=== PATIENT | female | born 1970 | race Caucasian/White ===

== ENCOUNTER → 2019-01-11 14:17 | Outpatient (CLI) | payer OTHER, SELFPAY ==
--- NOTE | 2019-01-11 14:20 | DI.RAD.S_ITS ---
PROCEDURE: XR SHOULDER LT MIN 2V INDICATIONS: L shoulder pain TECHNIQUE: 3 views of the shoulder were acquired. COMPARISON: None. FINDINGS: Bones: No fractures or dislocations. No suspicious bony lesions. Visualized ribs appear intact. Mild degenerative subchondral sclerosis and spurring Soft tissues: No suspicious soft tissue calcifications. IMPRESSION: Mild degenerative changes. Dictated by: Christiano Cagle M.D. on 01/11/2019 at 15:19 Approved by: Christiano Cagle M.D. on 01/11/2019 at 15:20
[2019-01-11 15:07] LABS: Add Manual Diff / Slide Review NO; Basophils Absolute Auto 0 /uL (0-100); Basophils Percent Auto 0.4 % (0-2); Eosinophils Absolute Auto 100 /uL (0-450); Eosinophils Percent Auto 2.1 % (2-4); Hematocrit 39.2 % (36-46); Hemoglobin 13.5 g/dL (12.0-16.0); Lymphocytes Absolute Auto 2000 /uL (1100-4500); Lymphocytes Percent Auto 29.7 % (25-40); Mean Corpuscular HGB Conc 34.5 % (30-36); Mean Corpuscular Hemoglobin 31.4 PG (26-34); Mean Corpuscular Volume 90.9 fL (80-100); Monocytes Absolute Auto 400 /uL (0-900); Monocytes Percent Auto 6.4 % (3-14); Neutrophils Absolute Auto 4200 /uL (1500-7000); Neutrophils Percent Auto 61.4 % (50-75); Platelet Count 335 X10^3/uL (150-400); Red Blood Cell Count 4.32 X10^6/uL (4.0-5.2); Red Cell Distribution Width 12.8 % (11.6-14.8); White Blood Cell Count 6.8 X10^3/uL (4.5-11.0)
[2019-01-11 15:29] LABS: Appearance Urine UA CLEAR; Bilirubin Urine UA NEGATIVE (NEGATIVE); Color Urine UA YELLOW; Glucose Urine UA NEGATIVE (Negative); Ketones Urine UA NEGATIVE (NEGATIVE); Leukocyte Esterase Urine UA NEGATIVE (NEGATIVE); Nitrite Urine UA NEGATIVE (Negative); Occult Blood Urine UA NEGATIVE (Negative); Protein Urine UA NEGATIVE (Negative); Specific Gravity Urine UA 1.025 (1.000-1.035)
[2019-01-11 16:30] LABS: Alanine Aminotransferase 28 IU/L (9-52); Albumin 4.1 g/dL (3.5-5.0); Albumin Globulin Ratio 1.6 (1.0-2.8); Alkaline Phosphatase 59 U/L (38-126); Aspartate Aminotransferase 21 IU/L (14-36); BUN Creatinine Ratio 17.1 (6-22); Bilirubin Total 0.4 mg/dL (0.2-1.3); Blood Urea Nitrogen 12 mg/dL (7-17); Calcium 8.6 mg/dL (8.4-10.2); Carbon Dioxide 26 mmol/L (22-32); Chloride 102 mmol/L (98-107); Cholesterol 160 mg/dL (140-199); Estimated Glomerular Filt Rate > 60.0 mL/min (>60); Globulin 2.5 g/dL (1.7-4.1); Glucose 99 mg/dL (70-100); HDL Cholesterol 32 mg/dL (40-60); HEMOLYSIS < 15 (0-50); LDL Cholesterol Calculated 93 mg/dL (<100); Sodium 138 mmol/L (137-145); Total Protein 6.6 g/dL (6.3-8.2); Triglycerides 173 mg/dL (35-150)
== END ==
PROVIDERS: Visit Provider Family Medicine
DX: M25.512 Pain in left shoulder (principal); Z00.00 Encounter for general adult medical examination without abnormal findings; Z13.220 Encounter for screening for lipoid disorders; Z13.29 Encounter for screening for other suspected endocrine disorder; Z51.81 Encounter for therapeutic drug level monitoring
CPT/HCPCS: 36415; 73030; 80053; 80061; 81003; 84443; 85025

== ENCOUNTER 2019-02-19 09:09 | Outpatient (RCR) | payer OTHER, SELFPAY ==
--- NOTE | 2019-02-19 16:00 | PT.OIE ---
Current Diagnoses Pain in left shoulder (02/19/19) Impingement syndrome of left shoulder (02/19/19) Past Medical History (Last Reviewed 02/12/19 @ 16:07 by Rama Washburn DO) Hypertension (Acute) Provider Visit Care Team Role Provider Type Rama Washburn DO Attending Provider Physician Primary Care Provider Specialty: Family Practice Address: [address] [place] [address], [facility] Email: [email or web address] Physical Therapy Initial Evaluation PT-OP-A Visit Information Start: 02/19/19 07:07 Freq: Status: Active Protocol: Document 02/19/19 09:30 AMB (Rec: 02/20/19 07:11 AMB [email or web address]) Out-Patient Physical Therapy Visit Information Visit Information Visit Type Initial Evaluation Visit Start Time 09:30 Visit Stop Time 10:15 Total Visit Minutes 45 Visit Number 1 PT-OP-B Current Condition Start: 02/19/19 07:07 Freq: Status: Active Protocol: Document 02/19/19 09:30 AMB (Rec: 02/20/19 07:11 AMB [email or web address]) Current Condition History of Current Condition Onset Date 2015 Current Complaints L shoulder pain History of Current Condition Nadeen reports insidious onset shoulder pain that began 3 years ago. She has had previous cortisone injections which help for awhile but then wear off. She has had previous PT for about a month 3 years ago that was a little helpful, but the pain keeps coming back. Prior Treatments and Tests Pt reports previous MRI in [place] showed swelling Treatment Goals Patient/Caregiver Goals Reduce pain, be able to lift arm, improve sleep Current Functional Impairments (Reported) Functional Limitations- ADL's dressing-donning/doffing bra, sleeping Functional Limitations- Other lifting arm above shoulder height, especially into abduction Personal Factors Other Personal Factors That May Effect hypertension Therapy/Recovery PT-OP-C Subjective Start: 02/19/19 07:07 Freq: Status: Active Protocol: Document 02/19/19 09:30 AMB (Rec: 02/20/19 07:11 AMB [email or web address]) Patient Questionnaires Quick Dash- Upper Extremity Quick Dash UE Score 56 Quick Dash UE Impairment 40 to 59% Impaired (Score 40- 59) OP-PT Pain Assessment Location Left Shoulder Pain Location Details lateral/anterior shoulder Intensity 7 Scale Used Numeric (1 - 10) PT-OP-J Posture/Palpation/Skin Start: 02/19/19 07:07 Freq: Status: Active Protocol: Document 02/19/19 09:30 AMB (Rec: 02/20/19 07:25 AMB [email or web address]) Posture Evaluation Comments Posture Comments Forward shoulders, forward head, BMI 42.9, no winging scapulae Palpation Assessment Location One Palpation Location L shoulder Palpation Findings Tenderness Palpation Details Proximal Biceps tendons, supraspinatus insertion, no tenderness noted over scapulae , tightness in upper trap. PT-OP-K Range of Motion Start: 02/19/19 07:07 Freq: Status: Active Protocol: Document 02/19/19 09:30 AMB (Rec: 02/20/19 07:25 AMB [email or web address]) Shoulder Goniometric Range of Motion Shoulder Measured in Degrees Right Active Testing Position Sitting Flexion 150 Abduction 150 Left Active Testing Position Sitting Flexion 120 Abduction 90 PT-OP-M Strength Start: 02/19/19 07:07 Freq: Status: Active Protocol: Document 02/19/19 09:30 AMB (Rec: 02/20/19 07:25 AMB [email or web address]) Shoulder Strength Shoulder Manual Muscle Testing Right Flexion 5 Normal Extension 5 Normal Abduction (C5) 5 Normal External Rotation 5 Normal Internal Rotation 5 Normal Left Flexion 4+ Good+ Extension 5 Normal Abduction (C5) 4 Good External Rotation 4 Good Internal Rotation 4+ Good+ PT-OP-Q Treatments Start: 02/19/19 07:07 Freq: Status: Active Protocol: Document 02/19/19 09:30 AMB (Rec: 02/20/19 07:30 AMB [email or web address]) Therapeutic Exercises Standing Exercises 1 Standing Exercise Name isometrics Reps/Minutes 5x10 Comments flexion, extension, ER Manual Therapy Treatment Taping 1 Body Location L shoulder Type of Tape Kinesio Tape Comments I for scapular retract, Y for GH support PT-OP-T Assessment and Plan Start: 02/19/19 07:07 Freq: Status: Active Protocol: Document 02/19/19 09:30 AMB (Rec: 02/20/19 08:40 AMB [email or web address]) Physical Therapy Assessment Rehab Potential Rehabilitation Potential Good Evaluation Complexity Number of Personal Factors/Comorbidities 0 Number of Body Systems Impaired 4 or More Clinical Presentation at Evaluation Stable Impairments Impairments Functional Activities Pain Posture ROM Strength Goals Two Impairment Strength Short Term Goal (STG) Nadeen will improve her strength to 4+/5 in all planes . STG Duration 4 weeks Senior Living Goal (LTG) Nadeen will improve her strength so that she can lift 20 pounds from the floor to waist height without increasing her shoulder pain. LTG Duration 8 weeks One Impairment ROM Short Term Goal (STG) Nadeen will increase her shoulder abduction AROM to 120 . STG Duration 4 weeks Senior Living Goal (LTG) Nadeen will improve her ROM so that she can don her bra without an increase of shoulder pain. LTG Duration 8 weeks Assessment Summary Assessment Nadeen attends PT with chronic shoulder pain, shoulder abduction and external rotation weakness, and poor posture. Per pt's report MRI from 3 years ago was negative for tear, but she likely has tendinosis and impingement. She will benefit from physical therapy to improve the stability of the GH joint, improve scapular mechanics, and then strengthen rotator cuff to reduce her pain with moving her arm and sleeping. Physical Therapy Plan Frequency and Duration Frequency of Treatment 2x/Week Duration of Treatment 8 weeks Plan of Care Start Date 02/19/19 Plan of Care End Date 04/16/19 Therapeutic Interventions Therapeutic Interventions Home Exercise Program Joint Mobilizations Manual Therapy Neuromuscular Re-education Self-Care/Home Management Therapeutic Activities Therapeutic Exercises Modalities Cold Pack/Ice Massage Electric Stimulation Hot Packs Ultrasound Next Visit Focus/Plan Next Note Type Treatment Note Next Visit Plan Progress isometrics, strengthen rotator cuff, scapular stabilizers as tolerated
--- NOTE | 2019-02-20 08:42 | PT.OPPOC ---
Current Diagnoses Pain in left shoulder (02/19/19) Impingement syndrome of left shoulder (02/19/19) Provider Visit Care Team Role Provider Type Rama Washburn DO Attending Provider Physician Primary Care Provider Specialty: Family Practice Address: [address] [place] [address], [id number] Email: [email or web address] Plan Of Care PT-OP-T Assessment and Plan Start: 02/19/19 07:07 Freq: Status: Active Protocol: Document 02/19/19 09:30 AMB (Rec: 02/20/19 08:40 AMB [email or web address]) Physical Therapy Assessment Rehab Potential Rehabilitation Potential Good Evaluation Complexity Number of Personal Factors/Comorbidities 0 Number of Body Systems Impaired 4 or More Clinical Presentation at Evaluation Stable Impairments Impairments Functional Activities Pain Posture ROM Strength Goals Two Impairment Strength Short Term Goal (STG) Nadeen will improve her strength to 4+/5 in all planes . STG Duration 4 weeks [facility] Goal (LTG) Nadeen will improve her strength so that she can lift 20 pounds from the floor to waist height without increasing her shoulder pain. LTG Duration 8 weeks One Impairment ROM Short Term Goal (STG) Nadeen will increase her shoulder abduction AROM to 120 . STG Duration 4 weeks [facility] Goal (LTG) Nadeen will improve her ROM so that she can don her bra without an increase of shoulder pain. LTG Duration 8 weeks Assessment Summary Assessment Nadeen attends PT with chronic shoulder pain, shoulder abduction and external rotation weakness, and poor posture. Per pt's report MRI from 3 years ago was negative for tear, but she likely has tendinosis and impingement. She will benefit from physical therapy to improve the stability of the GH joint, improve scapular mechanics, and then strengthen rotator cuff to reduce her pain with moving her arm and sleeping. Physical Therapy Plan Frequency and Duration Frequency of Treatment 2x/Week Duration of Treatment 8 weeks Plan of Care Start Date 02/19/19 Plan of Care End Date 04/16/19 Therapeutic Interventions Therapeutic Interventions Home Exercise Program Joint Mobilizations Manual Therapy Neuromuscular Re-education Self-Care/Home Management Therapeutic Activities Therapeutic Exercises Modalities Cold Pack/Ice Massage Electric Stimulation Hot Packs Ultrasound Next Visit Focus/Plan Next Note Type Treatment Note Next Visit Plan Progress isometrics, strengthen rotator cuff, scapular stabilizers as tolerated Plan of Care Dates Plan of Care Start Date 02/19/19 Plan of Care End Date 04/16/19 Please Sign and Return: I have reviewed this Plan of Care and certify that the skilled therapy services above are required to meet the patient?s needs. Physician Signature Date Printed Name and Credentials Clinical Instructor Signature Printed Name and Credentials
--- NOTE | 2019-05-13 07:58 | PT.OPDS ---
Current Diagnoses Pain in left shoulder (02/19/19) Impingement syndrome of left shoulder (02/19/19) Provider Visit Care Team Role Provider Type Rama Washburn DO Attending Provider Physician Primary Care Provider Specialty: Family Practice Address: [address] [place] [address], [address], [facility] Email: [email or web address] Visit Number Visit Number 1 Discharge Summary PT-OP-B Current Condition Start: 02/19/19 07:07 Freq: Status: Active Protocol: Document 02/19/19 09:30 AMB (Rec: 02/20/19 07:11 AMB [email or web address]) Current Condition History of Current Condition Onset Date 2015 Current Complaints L shoulder pain History of Current Condition Nadeen reports insidious onset shoulder pain that began 3 years ago. She has had previous cortisone injections which help for awhile but then wear off. She has had previous PT for about a month 3 years ago that was a little helpful, but the pain keeps coming back. Prior Treatments and Tests Pt reports previous MRI in [place] showed swelling Treatment Goals Patient/Caregiver Goals Reduce pain, be able to lift arm, improve sleep Current Functional Impairments (Reported) Functional Limitations- ADL's dressing-donning/doffing bra, sleeping Functional Limitations- Other lifting arm above shoulder height, especially into abduction Personal Factors Other Personal Factors That May Effect hypertension Therapy/Recovery PT-OP-C Subjective Start: 02/19/19 07:07 Freq: Status: Active Protocol: Document 02/19/19 09:30 AMB (Rec: 02/20/19 07:11 AMB [email or web address]) Patient Questionnaires Quick Dash- Upper Extremity Quick Dash UE Score 56 Quick Dash UE Impairment 40 to 59% Impaired (Score 40- 59) OP-PT Pain Assessment Location Left Shoulder Pain Location Details lateral/anterior shoulder Intensity 7 Scale Used Numeric (1 - 10) PT-OP-J Posture/Palpation/Skin Start: 02/19/19 07:07 Freq: Status: Active Protocol: Document 02/19/19 09:30 AMB (Rec: 02/20/19 07:25 AMB [email or web address]) Posture Evaluation Comments Posture Comments Forward shoulders, forward head, BMI 42.9, no winging scapulae Palpation Assessment Location One Palpation Location L shoulder Palpation Findings Tenderness Palpation Details Proximal Biceps tendons, supraspinatus insertion, no tenderness noted over scapulae , tightness in upper trap. PT-OP-K Range of Motion Start: 02/19/19 07:07 Freq: Status: Active Protocol: Document 02/19/19 09:30 AMB (Rec: 02/20/19 07:25 AMB [email or web address]) Shoulder Goniometric Range of Motion Shoulder Right Active Testing Position Sitting Flexion 150 Abduction 150 Left Active Testing Position Sitting Flexion 120 Abduction 90 PT-OP-M Strength Start: 02/19/19 07:07 Freq: Status: Active Protocol: Document 02/19/19 09:30 AMB (Rec: 02/20/19 07:25 AMB [email or web address]) Shoulder Strength Shoulder Manual Muscle Testing Right Flexion 5 Normal Extension 5 Normal Abduction (C5) 5 Normal External Rotation 5 Normal Internal Rotation 5 Normal Left Flexion 4+ Good+ Extension 5 Normal Abduction (C5) 4 Good External Rotation 4 Good Internal Rotation 4+ Good+ PT-OP-T Assessment and Plan Start: 02/19/19 07:07 Freq: Status: Active Protocol: Document 05/13/19 07:57 AMB (Rec: 05/13/19 07:58 AMB [email or web address]) Physical Therapy Assessment Assessment Summary Assessment Nadeen canceled her appointments after initial evaluation and has not followed up, that was almost 3 months ago, therefore she is discharged at this time. See evaluation for all clinical information.
== END 2019-05-17 10:09 | disposition home or self-care (01) ==
LOC: PHYS 09:09
PROVIDERS: PCP Family Medicine; Visit Provider Family Medicine
DX: M25.512 Pain in left shoulder (principal); M75.42 Impingement syndrome of left shoulder
CPT/HCPCS: 97110; 97161

== ENCOUNTER → 2019-05-09 14:54 | Outpatient (CLI) | payer OTHER, SELFPAY ==
--- NOTE | 2019-05-09 14:56 | DI.MG.S_ITS ---
BILATERAL DIGITAL SCREENING MAMMOGRAM 3D/2D WITH CAD: 05/09/2019 CLINICAL: Routine screening. Family history of breast cancer. Comparison is made to exams dated: 01/18/2017 mammogram and 06/14/2012 mammogram - [facility] [place]. There are scattered fibroglandular elements in both breasts. Current study was also evaluated with a Computer Aided Detection (CAD) system. No significant masses, calcifications, or other findings are seen in either breast. There has been no significant interval change. IMPRESSION: NEGATIVE There is no mammographic evidence of malignancy. A 1 year screening mammogram is recommended. This exam was interpreted at Station ID: [id number]. NOTE: For mammograms, a report in lay terms will be sent to the patient. Approximately 15% of breast malignancies will not be visualized mammographically. In the management of a palpable breast mass, a negative mammogram must not discourage biopsy of a clinically suspicious lesion. Electronically Signed By: Ham merritt/benedicto:05/09/2019 17:16:52 letter sent: Normal Exam ACR BI-RADS Category 1: Negative [id number]
== END ==
PROVIDERS: PCP Family Medicine; Visit Provider Family Medicine
DX: Z12.31 Encounter for screening mammogram for malignant neoplasm of breast (principal); Z80.3 Family history of malignant neoplasm of breast
CPT/HCPCS: 77063; 77067

== ENCOUNTER → 2019-06-11 09:41 | Outpatient (CLI) | payer OTHER, SELFPAY ==
[2019-06-11 11:33] LABS: BUN Creatinine Ratio 17.5 (6-22); Blood Urea Nitrogen 14 mg/dL (7-17); Carbon Dioxide 27 mmol/L (22-32); Chloride 102 mmol/L (98-107); Estimated Glomerular Filt Rate > 60.0 mL/min (>60); Glucose 96 mg/dL (70-100); HEMOLYSIS < 15 (0-50); Sodium 138 mmol/L (137-145)
[2019-06-11 12:00] LABS: RBC Urine None Seen (0-5/HPF)
[2019-06-11 12:15] LABS: Appearance Urine UA TURBID; Bilirubin Urine UA NEGATIVE (NEGATIVE); Color Urine UA YELLOW; Glucose Urine UA NEGATIVE (Negative); Ketones Urine UA NEGATIVE (NEGATIVE); Leukocyte Esterase Urine UA 1+ (NEGATIVE); Nitrite Urine UA NEGATIVE (Negative); Occult Blood Urine UA NEGATIVE (Negative); Protein Urine UA NEGATIVE (Negative); Urobilinogen Urine UA 0.2 E.U./dL (0.2)
[2019-06-11 12:32] LABS: Squamous Epithelial Cell Urine 5-10 /HPF (0-5/HPF); WBC Urine 5-10/HPF (0-5/HPF); pH Urine UA 6.5 (4.5-8.0)
[2019-06-11 12:33] LABS: Amorphous Sediment Urine 3+; Bacteria Urine Few (2-10); Culture Indicated Urine Specimen Cultured; Mucus Urine 3+ (Negative)
== END ==
PROVIDERS: PCP Family Medicine; Visit Provider Hospitalist
DX: R10.9 Unspecified abdominal pain (principal); M54.9 Dorsalgia, unspecified
CPT/HCPCS: 36415; 80048; 81001; 87086

== ENCOUNTER → 2019-06-28 13:01 | Outpatient (CLI) | payer OTHER, SELFPAY ==
--- NOTE | 2019-06-28 13:06 | DI.CT.S_ITS ---
PROCEDURE: CT ABDOMEN PELVIS WO CON INDICATIONS: L sided Flank pain with blood in urine. Clinical concern for kidney stone TECHNIQUE: Noncontrast 5 mm thick sections acquired from the diaphragms to the symphysis. 5 mm thick coronal and sagittal reformats were then performed. For radiation dose reduction, the following was used: automated exposure control, adjustment of mA and/or kV according to patient size. COMPARISON: None. FINDINGS: Image quality: Excellent. Lung bases: Lung bases are clear. Heart size is normal. Urinary system: Both kidneys are normal in size. No kidney stones. No hydronephrosis or perinephric fat stranding. Both ureters appear non-dilated throughout their expected courses. Bladder wall thickness is normal; no calcified bladder stones. Other solid organs: Liver is normal in size. Gallbladder demonstrates potential layering sludge. Pancreas is normal in contours. Spleen is normal in size. Incidental note is made of an accessory spleen along the hilum of the primary spleen. No adrenal nodules. Peritoneum and bowel: Unenhanced bowel loops demonstrate normal wall thickness and caliber. No free fluid or air. Nodes and vessels: No retroperitoneal or mesenteric adenopathy by size criteria. Aorta and inferior vena cava are normal in caliber. Incidental note is made of a normal-appearing appendix. Abdominal wall: No ventral hernias. Pelvis: No free pelvic fluid. No inguinal hernias or adenopathy. Bones: No suspicious bony lesions. No vertebral body compression fractures. IMPRESSION: No stones or hydronephrosis can be seen. Dictated by: Ryan Leone M.D. on 06/28/2019 at 12:46 Approved by: Ryan Leone M.D. on 06/28/2019 at 12:48
== END ==
PROVIDERS: PCP Family Medicine; Visit Provider Physician Assistant
DX: R10.9 Unspecified abdominal pain (principal); R31.9 Hematuria, unspecified
CPT/HCPCS: 74176

== ENCOUNTER → 2019-06-29 07:53 | Outpatient (CLI) | payer OTHER, SELFPAY | LOC: LAB 07:53 | PROVIDERS: PCP Family Medicine; Visit Provider Physician Assistant | DX: R10.9 Unspecified abdominal pain (principal); R31.9 Hematuria, unspecified | CPT/HCPCS: 87086 ==

== ENCOUNTER → 2019-08-29 06:58 | Outpatient (CLI) | payer OTHER, SELFPAY ==
--- NOTE | 2019-08-29 07:03 | DI.US.S_ITS ---
PROCEDURE: US ABDOMEN COMPLETE INDICATIONS: POST PRANDIAL EPIGASTRIC PAIN TECHNIQUE: Real-time scanning was performed of the abdominal and retroperitoneal organs, with image documentation. COMPARISON: , CT, CT ABDOMEN PELVIS WO CON, 06/28/2019, 13:19. FINDINGS: Liver: Liver is normal in size and homogeneous in echotexture. Gallbladder: No gallstones identified. Normal gallbladder wall. No pericholecystic fluid. Negative sonographic Martin sign. Biliary ducts: Intrahepatic bile ducts are non-dilated. Extrahepatic bile duct caliber measures 5.3 mm. Normal is 6-7 mm or less in diameter, or 10 mm or less post-cholecystectomy. Pancreas: Visualized portions of the pancreas are sonographically normal. Spleen: Spleen is normal in size and homogeneous in echotexture. Kidneys: Kidneys are normal in size and echotexture. Right kidney measures 12.1 cm long; left kidney measures 11.6 cm long. No hydronephrosis or nephrolithiasis. No solid masses. Aorta: Visualized aorta is normal in caliber at less than 3 cm. Iliacs: Proximal common iliac arteries are normal in caliber at less than 2.5 cm. IVC: Intrahepatic inferior vena cava is patent. Miscellaneous: No free abdominal fluid. IMPRESSION: No source for postprandial pain identified. Dictated by: Hernán DRAPER Interpreted: Adrianne Jack MD on 08/29/2019 at 8:50 Approved by: Adrianne Jack M.D. on 08/30/2019 at 7:06
== END ==
PROVIDERS: PCP Family Medicine; Visit Provider Specialist
DX: R10.13 Epigastric pain (principal)
CPT/HCPCS: 76700

== ENCOUNTER → 2019-09-16 18:15 | Outpatient (CLI) | payer OTHER, SELFPAY ==
[2019-09-16 18:55] LABS: Influenza A - CEPHEID Flu A NEGATIVE (NEGATIVE); Influenza B - CEPHEID Flu B NEGATIVE (NEGATIVE)
== END ==
PROVIDERS: PCP Family Medicine; Visit Provider Physician Assistant
DX: R68.89 Other general symptoms and signs (principal)
CPT/HCPCS: 87502

== ENCOUNTER → 2019-09-30 08:01 | Outpatient (CLI) | payer OTHER, SELFPAY ==
--- NOTE | 2019-09-30 08:03 | DI.NM.S_ITS ---
PROCEDURE: NM HIDA WITH CCK PHARMACEUTICAL: 5.0 mCi Tc-99m mebrofenin IV; 2.1 mcg CCK IV. INDICATIONS: post parandial nausea/pain r/o dyskinesia TECHNIQUE: Following intravenous administration of Tc-99m mebrofenin, sequential anterior abdominal images were obtained. To evaluate the contractile response of the gallbladder in response to Cholecystokinin (CCK), sincalide (0.02 ?g/kg) was administered by slow intravenous infusion approximately 60 minutes after the administration of the radiopharmaceutical. Sequential imaging was continued for 30 minutes after the start of CCK infusion. Gallbladder ejection fraction was calculated. COMPARISON: [facility], CT, CT ABDOMEN PELVIS WO CON, 06/28/2019, 13:19. [facility], US, US ABDOMEN COMPLETE, 08/29/2019, 7:23. FINDINGS: Biliary scan: There is normal tracer uptake and excretion by the liver. There is normal visualization of the intrahepatic ducts, common bile duct, and gallbladder. There is normal tracer transit into the duodenum. CCK stimulation: There is abnormally reduced contractile response of the gallbladder to CCK infusion. The calculated gallbladder ejection fraction is 20%; normal values are above 35%. It has been shown that any patient abdominal pain after CCK administration is related to the rate of CCK injection, rather than to any underlying gallbladder disease (Clinical Nuclear Medicine 2012; 37: 63-70. Journal of Nuclear Medicine 2014; 55: 1-9). IMPRESSION: Patency of the cystic duct is documented, normal filling of the gallbladder lumen by isotope. However, the gallbladder ejection fraction is abnormally low at 20%. Dictated by: Ethan Doty M.D. on 09/30/2019 at 13:50 Approved by: Ethan Doty M.D. on 09/30/2019 at 13:59
== END ==
LOC: RAD 08:03
PROVIDERS: Family Provider Family Medicine; PCP Family Medicine; Visit Provider Specialist
DX: R10.13 Epigastric pain (principal); R11.0 Nausea
CPT/HCPCS: 78227; A9537; J2805

== ENCOUNTER 2019-10-14 16:18 | Emergency (ER) | payer OTHER, SELFPAY ==
[2019-10-14 16:23] VITALS: BP 130/81; PULSE 84; RESP 18; TEMP 36.4; O2SAT 100
--- NOTE | 2019-10-14 18:37 | ED.BACK ---
HPI - Back Pain/Injury General Chief Complaint: Back Pain/Injury Stated Complaint: BACK PAIN Time Seen by Provider: 10/14/19 18:37 Source: patient Mode of arrival: Ambulatory Limitations: no limitations History of Present Illness HPI Narrative: 49-year-old female with known gallbladder disease who is scheduled to have a consultation with General surgery on of this week here for evaluation of bilateral mid back pain. Patient states she has had back pain like this in the past. No new trauma. States is been worsening over the past 3 days. Has tried some nzfu-apl-bikkgbg with remedies at home without any improvement. Also tried muscle relaxers which she had at home without any improvement. She has no abdominal pain. No bowel or bladder symptoms. No lower back pain. No rash. Related Data Home Medications Medication Instructions Recorded Confirmed cholecalciferol (vitamin D3) 25 1,000 unit PO DAILY 02/12/19 09/16/19 mcg (1,000 unit) capsule multivitamin,zz-rcrj-ryscahbq 1 tab PO DAILY 02/12/19 09/16/19 vitamin B comp and C no.3 15 mg-10 1 cap PO DAILY 02/12/19 09/16/19 mg-50 mg-5 mg-300 mg capsule Previous Rx's Medication Instructions Recorded lisinopril 20 1 tab PO DAILY #90 tab 01/07/19 mg-hydrochlorothiazide 12.5 mg tablet tramadol [Ultram] 50 mg PO Q6H PRN #7 tab 10/14/19 Allergies Allergy/AdvReac Type Severity Reaction Status Date / Time No Known Drug Allergies Allergy Verified 09/16/19 18:18 Review of Systems Constitutional Constitutional: Denies fever(s) and Denies headache(s) ENT Ears, Nose, Mouth, and Throat: Denies headache(s) Cardiovascular Cardiovascular: Denies chest pain and Denies dyspnea Respiratory Respiratory: Denies dyspnea Gastrointestinal Gastrointestinal: Denies abdominal pain, Denies nausea and Denies vomiting Genitourinary Genitourinary: Denies dysuria and Denies vaginal discharge Musculoskeletal Musculoskeletal: Reports back pain, Denies myalgias, Denies arthralgias and Denies tingling Integumentary/Breasts Skin/Breast: Denies rash Neurologic Neurologic: Denies behavioral changes, Denies headache(s), Denies radicular pain, Denies tingling and Denies tremor(s) Psychiatric Psychiatric: Denies behavioral changes Hematologic/Lymphatic Hematologic/Lymphatic: Denies easy bleeding and Denies easy bruising Allergic/Immunologic Allergic/Immunologic: Denies urticaria Patient History Medical History BMI 40.0-44.9, adult (Acute) Epigastric abdominal pain (Acute 07/2019) Hypertension (Chronic) Shoulder pain (Chronic) Upper back pain on left side (Acute 05/2019) Family History Mother Liver failure Father Cancer Diabetes mellitus Hypertension Hyperlipidemia Brother Diabetes mellitus Hypertension Grandfather Diabetes mellitus Hypertension Grandmother Diabetes mellitus Hypertension Social History household members: family and children occupational status: employed Smoking Status: Never smoker alcohol intake: never substance use type: does not use Smoking Status: Never smoker Exam Initial Vital Signs Initial Vital Signs: Vital Signs Temperature 97.5 F L 10/14/19 16:23 Pulse Rate 84 10/14/19 16:23 Respiratory Rate 18 10/14/19 16:23 Blood Pressure 130/81 10/14/19 16:23 Pulse Oximetry 100 10/14/19 16:23 Const General: cooperative and comfortable Limitations: mental status not altered HENMT Head: normal to inspection and normocephalic Resp Effort & Inspection: normal respiratory effort Cardio Rate: regular rate GI Inspection: non-distended Palpation: soft Back/Spine/Pelvis Cervical Spine: No cervical spinal tenderness Thoracic/Lumbar Spine: paraspinal tenderness (Thoracic region), No thoracic spinal tenderness and No lumbar spinal tenderness Skin Lesions: no lesions Rashes: no rashes Neuro General: alert and awake Cognition: normal cognition Speech: speech normal Extrem General: normal to inspection and capillary refill normal Psych Appearance: grossly normal and well kempt Course Orders Ordered: ED Orders 10/14/19 18:30 Complete Blood Count AUTO DIFF Stat Comprehensive Metabolic Panel Stat Lipase Stat Trop I [Troponin I] Stat Discontinued Medications Ketorolac Tromethamine (Toradol) 30 mg IV NOW ONE Stop: 10/14/19 19:17 Last Admin: 10/14/19 19:24 Dose: 30 mg Documented by: ALANNA Vital Signs Vital signs: Vital Signs - 8 hr 10/14/19 16:23 10/14/19 18:46 Temperature 97.5 F L Pulse Rate 84 76 Respiratory Rate 18 17 Blood Pressure 130/81 Blood Pressure [Right Arm] 121/77 Pulse Oximetry 100 100 MDM - Back Pain/Injury Lab Data Attestation: I reviewed the patient's lab results. Result diagrams: 10/14/19 18:30 10/14/19 18:30 Labs: Lab Results 10/14/19 10/14/19 Range/Units 18:30 18:30 WBC 6.9 (4.5-11.0) X10^3/uL RBC 4.21 (4.0-5.2) X10^6/uL Hgb 13.6 (12.0-16.0) g/dL Hct 38.7 (36-46) % MCV 91.9 (80-100) fL MCH 32.2 (26-34) PG MCHC 35.1 (30-36) % RDW 12.7 (11.6-14.8) % Plt Count 325 (150-400) X10^3/uL Neut % (Auto) 60.9 (50-75) % Lymph % (Auto) 31.6 (25-40) % [place] % (Auto) 4.9 (3-14) % Eos % (Auto) 1.7 L (2-4) % Baso % (Auto) 0.9 (0-2) % Neut # (Auto) 4200 (6450-2497) /uL Lymph # (Auto) 2200 (9970-7914) /uL [place] # (Auto) 300 (0-900) /uL Eos # (Auto) 100 (0-450) /uL Baso # (Auto) 100 (0-100) /uL Sodium 138 (137-145) mmol/L Potassium 3.8 (3.4-5.1) mmol/L Chloride 103 (98-107) mmol/L Carbon Dioxide 26 (22-32) mmol/L BUN 10 (7-17) mg/dL Creatinine 0.70 (0.52-1.04) mg/dL Estimated GFR > 60.0 (>60) mL/min BUN/Creatinine Ratio 14.3 (6-22) Glucose 93 (70-100) mg/dL Calcium 8.8 (8.4-10.2) mg/dL Total Bilirubin 0.4 (0.2-1.3) mg/dL AST 27 (14-36) IU/L ALT 21 (<35) IU/L Alkaline Phosphatase 66 (38-126) U/L Troponin I < 0.012 (0.01-0.034) ng/mL Total Protein 7.5 (6.3-8.2) g/dL Albumin 4.2 (3.5-5.0) g/dL Globulin 3.3 (1.7-4.1) g/dL Albumin/Globulin Ratio 1.3 (1.0-2.8) Lipase 61 (23-300) U/L MDM Narrative Medical decision making narrative: Symptoms more consistent with musculoskeletal given her history and physical exam. I have low suspicion that this is gallbladder etiology. We did discuss symptom treatment. No indication for radiologic studies. Patient given return precautions and follow-up instructions. She expressed understanding and agreement with plan. Discharge Plan Departure Patient Disposition: Home Clinical Impression: Acute back pain Discharge Date/Time: 10/14/19 19:37 Instructions: DI for Thoracic Back Pain Activity Restrictions/Additional Instructions: Keep all of your scheduled medical appointments. Take the medications as directed. Return to the emergency department for any new or worsening symptoms Prescriptions: New tramadol [Ultram] 50 mg tablet 50 mg PO Q6H PRN (Reason: pain) Qty: 7 RF: 0 No Action lisinopril-hydrochlorothiazide 20-12.5 mg tablet 1 tab PO DAILY Qty: 90 RF: 1 Complete Multivitamin tablet 1 tab PO DAILY RF: 0 cholecalciferol (vitamin D3) 1,000 unit capsule 1,000 unit PO DAILY RF: 0 B Complex Plus Vitamin C 54-04-01-5-300 mg capsule 1 cap PO DAILY RF: 0 Referrals: Rama Washburn DO [Primary Care Provider] -
[2019-10-14 18:40] LABS: Add Manual Diff / Slide Review NO; Basophils Absolute Auto 100 /uL (0-100); Basophils Percent Auto 0.9 % (0-2); Eosinophils Absolute Auto 100 /uL (0-450); Eosinophils Percent Auto 1.7 % (2-4); Hematocrit 38.7 % (36-46); Hemoglobin 13.6 g/dL (12.0-16.0); Lymphocytes Absolute Auto 2200 /uL (1100-4500); Lymphocytes Percent Auto 31.6 % (25-40); Mean Corpuscular HGB Conc 35.1 % (30-36); Mean Corpuscular Hemoglobin 32.2 PG (26-34); Mean Corpuscular Volume 91.9 fL (80-100); Monocytes Absolute Auto 300 /uL (0-900); Monocytes Percent Auto 4.9 % (3-14); Neutrophils Absolute Auto 4200 /uL (1500-7000); Neutrophils Percent Auto 60.9 % (50-75); Platelet Count 325 X10^3/uL (150-400); Red Blood Cell Count 4.21 X10^6/uL (4.0-5.2); Red Cell Distribution Width 12.7 % (11.6-14.8); White Blood Cell Count 6.9 X10^3/uL (4.5-11.0)
[2019-10-14 18:46] VITALS: BP 121/77; PULSE 76; RESP 17; O2SAT 100
[2019-10-14 18:49] LABS: Alanine Aminotransferase 21 IU/L (<35); Albumin 4.2 g/dL (3.5-5.0); Albumin Globulin Ratio 1.3 (1.0-2.8); Alkaline Phosphatase 66 U/L (38-126); Aspartate Aminotransferase 27 IU/L (14-36); BUN Creatinine Ratio 14.3 (6-22); Bilirubin Total 0.4 mg/dL (0.2-1.3); Blood Urea Nitrogen 10 mg/dL (7-17); Calcium 8.8 mg/dL (8.4-10.2); Carbon Dioxide 26 mmol/L (22-32); Chloride 103 mmol/L (98-107); Estimated Glomerular Filt Rate > 60.0 mL/min (>60); Globulin 3.3 g/dL (1.7-4.1); Glucose 93 mg/dL (70-100); HEMOLYSIS 18 (0-50); Lipase 61 U/L (23-300); Potassium 3.8 mmol/L (3.4-5.1); Sodium 138 mmol/L (137-145); Total Protein 7.5 g/dL (6.3-8.2)
[2019-10-14 19:00] LABS: Troponin I < 0.012 ng/mL (0.01-0.034)
[2019-10-14] MEDS: KETOROLAC 60 MG/2 ML VIAL 30 MG IV (19:24)
== END 2019-10-14 19:37 | disposition home or self-care (01) ==
PROVIDERS: Emergency Medicine; Emergency Provider Emergency Medicine; Family Provider Family Medicine; PCP Family Medicine
DX: M54.6 Pain in thoracic spine (principal)
CPT/HCPCS: 36415; 80053; 83690; 84484; 85025; 96374; 99284; J1885

== ENCOUNTER 2019-11-04 10:35 | Day surgery (SDC) | payer OTHER, SELFPAY ==
[2019-10-29 10:47] VITALS: BMI 40.1
--- NOTE | 2019-11-04 | PATH_ITS ---
[facility] Accession Number: [id number] . 01 Material submitted: . gallbladder - GALLBLADDER . 02 Diagnosis: Gallbladder, Cholecystectomy: Chronic cholecystitis. No calculi identified. Negative for dysplasia and malignancy. V 11/07/2019 1032 Local . 02 Electronically signed: . Janny Fatima MD, Pathologist NPI- [id number] . 01 Gross description: . Received in formalin, labeled gallbladder, is an opened gallbladder (length-8.0 cm, diameter-2.2 cm) with marcial-purple smooth shiny serosa and a patent cystic duct. A possible lymph node (0.8 x 0.3 x 0.2 cm) is identified. The lumen contains green viscous bile. No calculi are present. The mucosa is green, smooth, and flat. The wall is up to 0.1 cm thick. No nodules, masses, or lesions are identified. Section Code: (A1) cystic duct resection margin and two serial sections from the body; (A2) two longitudinal sections from the fundus; (A3) one bisected lymph node. ([id number]) /[facility] 11/06/2019 1302 Local . 02 Pathologist provided ICD-10: K81.1 . 02 CPT . 629687 Performed at: 01 [facility] [address] [facility], [place], [place] [id number] MD Francois Berman MD Phone: [phone] Performed at: 02 [facility] [address] [place], [place] [id number] MD Janny Fatima MD Phone: [phone]
[2019-11-04 10:52] VITALS: BMI 39.2
[2019-11-04 10:57] VITALS: BP 116/76; PULSE 84; RESP 20; TEMP 36.6; O2SAT 100
[2019-11-04] MEDS: LACTATED RINGERS 1,000 ML 42 ML IV (11:00)
--- NOTE | 2019-11-04 12:30 | PM.PREOP ---
Pre-operative Note Interval Note History & Physical reviewed/Exam performed by Physician: Yes Changes to H&P: No
[2019-11-04] MEDS: CEFAZOLIN 2 GM/100 ML FROZ.PIGGY IV (12:45)
--- NOTE | 2019-11-04 13:14 | SUR.OPER ---
Supine on padded OR bed, head on pillow, arms secured on padded arm boards at <90 degrees abduction, legs uncrossed, safety belt at thigh, padded footboard in place, tape over blanket over lower legs.
[2019-11-04] MEDS: BUPIVACAINE 0.5% (PF) VIAL 30 ML INJ (13:21)
--- NOTE | 2019-11-04 14:04 | PM.OP.1 ---
Operative Date/Time/Diagnoses Date of procedure: 11/04/19 Time of procedure: 14:04 Pre-op diagnosis: Gallbladder dyskinesia, epigastric pain Post-op diagnosis: same Procedure & Clinicians Procedure: Laparoscopic cholecystectomy Same procedure as scheduled: Yes Surgeon: Samuel Hawkins Click Yes if Unassisted: Yes Anesthesia Type: General Operative Notes Findings: Normal appearing gallbladder Closure Type: primary Specimen(s): other (Gallbladder) Prosthetic devices, grafts, tissues, transplants, or devices: None Estimated Blood Loss (mL): 10 Blood products transfused: none Procedure in detail: The patient was placed supine on the operating room table and underwent general endotracheal anesthesia. The patient was prepped and draped in the usual fashion. Local anesthetic was infiltrated near the umbilicus and curvilinear incision made and carried down through fascia into the peritoneal cavity. Stay sutures of 0 Vicryl were placed in the fascia. A 12 mm port was placed. The abdomen was insufflated. The patient was repositioned. Local anesthetic was infiltrated in 3 areas under the right costal margin and 3 additional incisions made followed by placing 3 5 mm ports under direct laparoscopic camera vision internally. The gallbladder was grasped and elevated. Dissection was begun near its end. A vascular structure singular nature going directly the gallbladder was from surrounding structures and 4 clips were placed across it. It was divided leaving 3 in the patient. Adjacent to that was a ductal structure which was from surrounding structures. It was going directly the gallbladder. There appeared to be a small vascular structure at its edge which I and placed a clip across. I then put 3 clips across the cystic duct and divided it leaving the clip on the vascular structure and 2 clips on the duct. The gallbladder was then dissected from its bed in the liver. It was detached and removed without difficulty through the umbilical port. the right upper quadrant irrigated and suctioned free of fluid.. Meticulous hemostasis was assured. The ports were all removed. The port sites were all irrigated. The stay sutures at the umbilicus were elevated. A 2 0 PDS suture was placed between them. The Vicryl and PDS sutures were then tied. The skin in all areas was closed with interrupted 4 0 Vicryl subcuticular stitches. Steri-Strips and Mastisol were applied. Band-Aids were placed and the patient was awakened, extubated and taken to the recovery area in good condition. Complications: none Post-operative Condition: stable Disposition: PACU
[2019-11-04 14:07] VITALS: BP 113/68; PULSE 81; RESP 16; TEMP 36.7; O2SAT 90
[2019-11-04 14:12] VITALS: BP 109/65; PULSE 73; RESP 15; O2SAT 97
[2019-11-04 14:17] VITALS: BP 111/57; PULSE 76; RESP 26; O2SAT 99
[2019-11-04 14:32] VITALS: BP 105/69; PULSE 65; RESP 17; O2SAT 95
[2019-11-04] MEDS: hydrOXYzine 50 MG/ML INJ 25 MG IM (14:38)
[2019-11-04] MEDS: OXYCODONE/ACETAMINOPHEN 5/325 TABLET 1 TAB PO (14:38)
[2019-11-04 15:03] VITALS: BP 102/64; PULSE 80; RESP 12; TEMP 36.8; O2SAT 98
== END 2019-11-04 15:25 | disposition home or self-care (01) ==
LOC: OR 10:36
PROVIDERS: Family Provider Family Medicine; PCP Family Medicine; Referring Provider Family Medicine; Visit Provider Specialist
PROC: 0FT44ZZ Resection of Gallbladder, Percutaneous Endoscopic Approach (ICD-10-PCS; CPT 47562; principal; 2019-11-04 12:15)
DX: K81.1 Chronic cholecystitis (principal)
CPT/HCPCS: 47562; J0330; J0690; J1100; J1885; J2250; J2405; J2704; J3010; J3410

== ENCOUNTER → 2020-01-21 08:52 | Outpatient (CLI) | payer OTHER, SELFPAY ==
[2020-01-21 11:06] LABS: Creatinine Urine Random 74.4 mg/dL
[2020-01-21 11:08] LABS: Cholesterol 185 mg/dL (140-199); HDL Cholesterol 45 mg/dL (40-60); LDL Cholesterol Calculated 114 mg/dL (<100); Triglycerides 131 mg/dL (35-150)
[2020-01-21 11:11] LABS: Microalbumi Creatinin Ratio Ur 9.4 ug/mg CR (<30); Microalbumin Urine Random 0.7 mg/dL (0-1.6)
== END ==
LOC: LAB 08:53
PROVIDERS: Family Provider Family Medicine; PCP Nurse Practitioner Family; Referring Provider Nurse Practitioner Family; Visit Provider Nurse Practitioner Family
DX: Z13.6 Encounter for screening for cardiovascular disorders (principal); I10 Essential (primary) hypertension
CPT/HCPCS: 36415; 80061; 82043; 82570

== ENCOUNTER → 2020-05-07 11:28 | Outpatient (CLI) | payer OTHER, SELFPAY ==
--- NOTE | 2020-05-07 11:30 | DI.RAD.S_ITS ---
PROCEDURE: XR LUMBAR SPINE 2-3V INDICATIONS: low back pain TECHNIQUE: 3 views of the lumbar spine were acquired. COMPARISON: [facility], , L-SPINE 2-3 VIEWS, 05/14/2008, 13:58. FINDINGS: Bones: 5 bye-ouk-zaggbtr vertebrae are present. There is normal bony alignment. No vertebral body compression fractures. No suspicious bony lesions. Soft tissues: Overlying bowel gas pattern is normal. No suspicious soft tissue calcifications. IMPRESSION: No trauma found. No significant degenerative change seen. Source of low back pain is not identified. Dictated by: Ethan Doty M.D. on 05/07/2020 at 12:29 Approved by: Ethan Doty M.D. on 05/07/2020 at 12:30
== END ==
PROVIDERS: Family Provider Family Medicine; PCP Nurse Practitioner Family; Referring Provider Nurse Practitioner Family; Visit Provider Nurse Practitioner Family
DX: M54.5 Low back pain (principal)
CPT/HCPCS: 72100

== ENCOUNTER → 2020-07-01 15:00 | Outpatient (CLI) | payer OTHER, SELFPAY ==
[2020-07-01 15:42] LABS: Hematocrit 40.6 % (36-46); Hemoglobin 14.1 g/dL (12.0-16.0); Mean Corpuscular HGB Conc 34.7 % (30-36); Mean Corpuscular Hemoglobin 31.5 PG (26-34); Mean Corpuscular Volume 90.5 fL (80-100); Platelet Count 329 X10^3/uL (150-400); Red Blood Cell Count 4.48 X10^6/uL (4.0-5.2); Red Cell Distribution Width 12.5 % (11.6-14.8); White Blood Cell Count 6.9 X10^3/uL (4.5-11.0)
[2020-07-01 17:05] LABS: Alanine Aminotransferase 22 IU/L (<35); Albumin 3.9 g/dL (3.5-5.0); Albumin Globulin Ratio 1.3 (1.0-2.8); Alkaline Phosphatase 57 U/L (38-126); Aspartate Aminotransferase 26 IU/L (14-36); BUN Creatinine Ratio 19.4 (6-22); Bilirubin Total 0.5 mg/dL (0.2-1.3); Blood Urea Nitrogen 14 mg/dL (7-17); Calcium 8.5 mg/dL (8.4-10.2); Carbon Dioxide 28 mmol/L (22-32); Chloride 106 mmol/L (98-107); Estimated Glomerular Filt Rate > 60.0 mL/min (>60); Globulin 3.1 g/dL (1.7-4.1); Glucose 104 mg/dL (70-100); HEMOLYSIS < 15 (0-50); Potassium 3.9 mmol/L (3.4-5.1); Sodium 138 mmol/L (137-145)
[2020-07-10 15:33] LABS: Urea Breath Test >18YRS Negative
== END ==
PROVIDERS: Family Provider Family Medicine; PCP Nurse Practitioner Family; Referring Provider Nurse Practitioner Family; Visit Provider Nurse Practitioner Family
DX: K21.9 Gastro-esophageal reflux disease without esophagitis (principal); R10.13 Epigastric pain
CPT/HCPCS: 36415; 80053; 83013; 85027

== ENCOUNTER → 2020-07-07 07:45 | Outpatient (CLI) | payer OTHER, SELFPAY ==
--- NOTE | 2020-07-07 07:46 | DI.US.S_ITS ---
PROCEDURE: US ABDOMEN COMPLETE INDICATIONS: GERD, PAIN POST ANDI TECHNIQUE: Real-time scanning was performed of the abdominal and retroperitoneal organs, with image documentation. COMPARISON: [facility], CT, CT ABDOMEN PELVIS WO CON, 06/28/2019, 13:19. [facility], US, US ABDOMEN COMPLETE, 08/29/2019, 7:23. FINDINGS: Liver: Liver is normal in size and homogeneous in echotexture. The main portal vein measures 1.3 cm, patent. Gallbladder: Surgically absent. Biliary ducts: Intrahepatic bile ducts are non-dilated. Extrahepatic bile duct caliber measures 7.3 mm. Normal is 6-7 mm or less in diameter, or 10 mm or less post-cholecystectomy. Pancreas: Visualized portions of the pancreas are sonographically normal. Spleen: Spleen is normal in size and homogeneous in echotexture. Kidneys: Kidneys are normal in size and echotexture. Right kidney measures 12.4 cm long; left kidney measures 10.7 cm long. No hydronephrosis or nephrolithiasis. No definite solid masses but there is a band of soft tissue contiguous with the cortex at the junction of the vldvag-ky-jqtlb thirds of the right kidney, with an appearance considered most likely to represent a prominent column of Zafar.. This area measures approximately 1.7 x 2.8 cm. Aorta: Visualized aorta is normal in caliber at less than 3 cm. Iliacs: Proximal common iliac arteries are normal in caliber at less than 2.5 cm. IVC: Intrahepatic inferior vena cava is patent. Miscellaneous: No free abdominal fluid. IMPRESSION: What appears to be a prominent column of Zafar is identified at the junction of the bhyry-xq-yvsstu 3rd of the right kidney. Quality of visualization is somewhat limited in this area. Follow-up repeat single organ targeted right renal ultrasound in 3 months is recommended to confirm stability over time. No source of pain after cholecystectomy is found. Dictated by: Ethan Doty M.D. on 07/07/2020 at 9:14 Approved by: Ethan Doty M.D. on 07/07/2020 at 9:23
== END ==
PROVIDERS: Family Provider Family Medicine; PCP Nurse Practitioner Family; Referring Provider Nurse Practitioner Family; Visit Provider Nurse Practitioner Family
DX: K21.9 Gastro-esophageal reflux disease without esophagitis (principal); R10.13 Epigastric pain; Z90.49 Acquired absence of other specified parts of digestive tract
CPT/HCPCS: 76700

== ENCOUNTER 2020-07-20 09:56 | Emergency (ER) | payer OTHER, SELFPAY ==
[2020-07-20 10:05] VITALS: BP 150/82; PULSE 87; RESP 16; TEMP 36.8; O2SAT 100; BMI 39.4
--- NOTE | 2020-07-20 10:29 | PC.NURSE ---
pt denies any change in bowel or bladder issues. states she tried ibuprofen but didn't take any today.
--- NOTE | 2020-07-20 10:49 | ED_ITS ---
HPI - Back Pain/Injury General Chief Complaint: Back Pain/Injury Stated Complaint: lower back pain Time Seen by Provider: 07/20/20 10:39 Source: patient Limitations: no limitations History of Present Illness HPI Narrative: 50-year-old female comes to the emergency department with complaint of midthoracic back pain on the right. Patient states that she woke up feeling sort of tight a couple days ago and has had increasing pain sort of radiates down towards her buttock. Fevers, no cold cough or congestion. No chest pain or shortness of breath. Occasional flutters. No abdominal pain. No urinary frequency, dysuria urgency. No issues with bowel movements. No numbness, tingling or weakness in her upper or lower extremities. No loss of bowel or bladder control. Patient has had some back issues in the past, she states that this is more intense. She states that the location is a little bit different. Patient states that she did have her gallbladder removed in the past, she has had a in the past but denies any other medical issues. She did take 400 mg of ibuprofen yesterday with minimal improvement. She tried to go to work today at [employer] and was unable to continue. She denies any tobacco, alcohol or illicit Related Data Home Medications Medication Instructions Recorded Confirmed cholecalciferol (vitamin D3) 25 1,000 unit PO DAILY 02/12/19 07/16/20 mcg (1,000 unit) capsule multivitamin,ax-xpjl-mqbymtgh 1 tab PO DAILY 02/12/19 07/16/20 vitamin B comp and C no.3 15 mg-10 1 cap PO DAILY 02/12/19 07/16/20 mg-50 mg-5 mg-300 mg capsule calcium carbonate 200 mg calcium 400 mg PO QID PRN tab 07/01/20 07/16/20 (500 mg) chewable tablet Previous Rx's Medication Instructions Recorded omeprazole 40 mg capsule,delayed 40 mg PO DAILY #14 cap 07/01/20 release cyclobenzaprine 10 mg PO TID PRN #10 tab 07/20/20 hydrocodone-acetaminophen [Donie] 1 tab PO Q6H PRN #7 tab 07/20/20 Allergies Allergy/AdvReac Type Severity Reaction Status Date / Time No Known Drug Allergies Allergy Verified 07/16/20 13:25 Review of Systems Review of Systems ROS Unobtainable: All systems reviewed & are unremarkable except as noted in HPI and below Patient History Medical History BMI 40.0-44.9, adult (Acute) Elevated blood sugar (Acute) Elevated LDL cholesterol level (Acute) Epigastric abdominal pain (Acute 07/2019) Essential hypertension (Acute ~2019) GERD (gastroesophageal reflux disease) (Acute) Hypertension (Chronic) Low back pain (Acute 08/2019) Shoulder pain (Chronic) Skin lesion (Acute) Sleep apnea (Acute) Upper back pain on left side (Acute 05/2019) Surgical History History of bladder surgery (Acute) Hx of section (Acute) Family History Mother Liver failure Father Cancer Diabetes mellitus Hypertension Hyperlipidemia Brother Diabetes mellitus Hypertension Grandfather Diabetes mellitus Hypertension Grandmother Diabetes mellitus Hypertension Social History household members: family and children occupational status: employed Smoking Status: Never smoker alcohol intake: never substance use type: does not use Smoking Status: Never smoker alcohol intake frequency: 0-2 drinks per day Substance Use Type: does not use Exam Narrative Exam Narrative: GENERAL: Alert and oriented x three, obese, well-appearing female in mild to moderate distress. Initially saw patient ambulating to the bathroom. HEENT: Head normocephalic, atraumatic, EOMI, pupils reactive, face symmetric, moist mucous membranes NECK: Supple, full range of motion CARDIOVASCULAR: Regular rate and rhythm without murmurs, rubs or gallops. RESPIRATORY: Breath sounds equal bilaterally, no wheezes rales or rhonchi. ABDOMEN: Soft, nontender. Normoactive bowel sounds all 4 quadrants. No guarding or rebound, rigidity, no mass : Mild right CVA tenderness, no left CVA tenderness. EXTREMITIES: Normal range of motion, no clubbing or edema. Neurovascularly intact BACK: No cervical, thoracic or lumbar vertebral point tenderness. Patient has normal range of motion. Patient's gait is normal. Rectal exam is deferred. Muscle strength is 5/5 in lower extremities, NEUROLOGICAL: Cranial nerves II through XII grossly intact. Moving all extremities SKIN: Warm, dry, no petechiae, no rashes or lesions. Initial Vital Signs Initial Vital Signs: Vital Signs Temperature 98.2 F 07/20/20 10:05 Pulse Rate 87 07/20/20 10:05 Respiratory Rate 16 07/20/20 10:05 Blood Pressure 150/82 H 07/20/20 10:05 Pulse Oximetry 100 07/20/20 10:05 Course Orders Ordered: Discontinued Medications Hydrocodone Bitart/Acetaminophen (Donie 5/325) 1 tab PO NOW ONE Stop: 07/20/20 12:46 Last Admin: 07/20/20 12:57 Dose: 1 tab Documented by: COLTON Cyclobenzaprine HCl (Flexeril) 10 mg PO NOW ONE Stop: 07/20/20 12:46 Last Admin: 07/20/20 12:57 Dose: 10 mg Documented by: COLTON Ketorolac Tromethamine (Toradol) 30 mg IM NOW ONE Stop: 07/20/20 11:21 Last Admin: 07/20/20 11:27 Dose: 30 mg Documented by: COLTON Reevaluation(s) Reevaluation #1: Patient states she has had a little bit of improvement with Toradol but still uncomfortable. She did drive herself she states she does have a ride will give her a dose of muscle relaxer and pain medication in addition to see if it is helpful. We discussed patient's urine is negative for infection today. Time: 12:46 Vital Signs Vital signs: Vital Signs - 8 hr 07/20/20 13:59 Pulse Rate 76 Respiratory Rate 16 Blood Pressure 136/78 Pulse Oximetry 96 MDM - Back Pain/Injury Lab Data Labs: Point of Care Testing Test Results Negative Urine Dip Bedside Urine Glucose Negative Bedside Urine Bilirubin - Negative Bedside Urine Ketone - Negative Urine Specific [place] 1.015 Bedside Urine Occult Blood +++ Bedside Urine pH 6.0 Bedside Urine Protein - Negative Bedside Urine Urobilinogen - Negative Bedside Urine Nitrite - Negative Bedside Urine Leukocytes - Negative Esterase MDM Narrative Medical decision making narrative: Patient comes in with complaint of right- sided back pain has been going on for several days without much improvement. It does not radiate to the front but is in the area of the right flank. Discussed with patient I would like to check a urine she had just urinated before being evaluated slivers fluids to make sure she does not have a bladder infection or pyelo, otherwise her exam is fairly benign with no red flag symptoms. Plan to give a dose of Toradol and re-evaluate afterwards. Discharge Plan Departure Patient Disposition: Home Clinical Impression: Back pain Discharge Date/Time: 07/20/20 14:24 Instructions: DI for Back Strain or Sprain Activity Restrictions/Additional Instructions: Follow-up with her physician in the next week if you are not having any improvement. You may take ibuprofen up to 800 mg every 8 hours and/or Tylenol up to a 1000 mg every 8 hours. If these are not adequate take pain medication as prescribed. These medications can make you sleepy do not drive, perform hazardous activities or make any major decisions while taking them Return to the ER for fevers greater 100.4 F, loss of bowel or bladder control, new weakness inability user extremity, rapidly worsening pain, passing out, new chest pain or shortness of breath, severe abdominal pain or other new or concerning symptoms. Prescriptions: New cyclobenzaprine 10 mg tablet 10 mg PO TID PRN (Reason: muscle spasm) Qty: 10 RF: 0 hydrocodone-acetaminophen [Donie] 5-325 mg tablet 1 tab PO Q6H PRN (Reason: pain) Qty: 7 RF: 0 No Action Complete Multivitamin tablet 1 tab PO DAILY RF: 0 cholecalciferol (vitamin D3) 1,000 unit capsule 1,000 unit PO DAILY RF: 0 B Complex Plus Vitamin C 05-90-77-5-300 mg capsule 1 cap PO DAILY RF: 0 calcium carbonate [Tums] 200 mg calcium (500 mg) tablet,chewable 400 mg PO QID PRNRF: 0 omeprazole 40 mg capsule,delayed release(DR/EC) 40 mg PO DAILY Qty: 14 RF: 0 Referrals: Haily Stanley ARNP [Primary Care Provider] -
[2020-07-20] MEDS: KETOROLAC 60 MG/2 ML VIAL 30 MG IM (11:27)
[2020-07-20] MEDS: HYDROCODONE/ACET 5/325 TABLET 1 TAB PO (12:57)
[2020-07-20] MEDS: CYCLOBENZAPRINE 10 MG TABLET PO (12:57)
[2020-07-20 13:59] VITALS: BP 136/78; PULSE 76; RESP 16; O2SAT 96
== END 2020-07-20 14:24 | disposition home or self-care (01) ==
PROVIDERS: Emergency Provider Emergency Medicine; Family Provider Family Medicine; PCP Nurse Practitioner Family
DX: M54.6 Pain in thoracic spine (principal)
CPT/HCPCS: 81003; 81025; 96372; 99283; J1885

== ENCOUNTER → 2020-09-01 07:38 | Outpatient (CLI) | payer OTHER, SELFPAY ==
--- NOTE | 2020-09-01 07:40 | DI.US.S_ITS ---
PROCEDURE: US RENAL COMPLETE INDICATIONS: abn abd us- needs 3 month f/u September TECHNIQUE: Real-time scanning was performed of the kidneys and bladder, with image documentation. COMPARISON: [facility], US, US ABDOMEN COMPLETE, 07/07/2020, 8:04. [facility], CT, CT ABDOMEN PELVIS WO CON, 06/28/2019, 13:19. FINDINGS: Kidneys: Kidneys are normal in size. Right kidney measures 11.4 cm long; left kidney measures 10.7 cm long. Right renal cortical thickness is 1.1 cm; left renal cortical thickness is 1.4 cm. . No hydronephrosis or nephrolithiasis. Redemonstration of hypoechoic focus within the upper pole the right kidney measures 3.1 x 1.5 x 3.7 cm, probably reflecting prominent column of Zafar. No interval change. Bladder: Pre-void bladder volume is 60 mL. Post-void residual is 0 mL. Pre-void images demonstrate no intraluminal masses or stones. On pre-void images, the left ureteral jet is noted with color Doppler interrogation. (Of note, ureteral jets may not be detectable in up to 25% of cases due to insufficient differences in specific gravity between ureteral and bladder urine). Miscellaneous: No free pelvic fluid. IMPRESSION: Unchanged hypoechoic focus involving the upper pole the right kidney, which may reflect incidental prominent hypertrophied column of Zafar. Dictated by: Christaino Cagle M.D. on 09/01/2020 at 10:35 Approved by: Christiano Cagle M.D. on 09/01/2020 at 10:40
== END ==
PROVIDERS: Family Provider Family Medicine; PCP Nurse Practitioner Family; Referring Provider Nurse Practitioner Family; Visit Provider Nurse Practitioner Family
DX: R93.421 Abnormal radiologic findings on diagnostic imaging of right kidney (principal)
CPT/HCPCS: 76770

== ENCOUNTER → 2020-09-23 16:57 | Outpatient (CLI) | payer OTHER, SELFPAY ==
--- NOTE | 2020-09-23 16:59 | DI.MG.S_ITS ---
BILATERAL DIGITAL SCREENING MAMMOGRAM 3D/2D WITH CAD: 09/23/2020 CLINICAL: Routine screening. Family history of breast cancer. Comparison is made to exams dated: 05/09/2019 mammogram - [facility], 01/18/2017 mammogram, and 06/14/2012 mammogram - [facility]. There are scattered fibroglandular elements in both breasts. Current study was also evaluated with a Computer Aided Detection (CAD) system. No significant masses, calcifications, or other findings are seen in either breast. There has been no significant interval change. IMPRESSION: NEGATIVE There is no mammographic evidence of malignancy. A 1 year screening mammogram is recommended. This exam was interpreted at Station ID: [id number]. NOTE: For mammograms, a report in lay terms will be sent to the patient. Approximately 15% of breast malignancies will not be visualized mammographically. In the management of a palpable breast mass, a negative mammogram must not discourage biopsy of a clinically suspicious lesion. Electronically Signed By: Destiny hopper/benedicto:09/24/2020 10:51:33 letter sent: Normal Exam ACR BI-RADS Category 1: Negative [id number]
== END ==
PROVIDERS: Family Provider Family Medicine; PCP Nurse Practitioner Family; Referring Provider Nurse Practitioner Family; Visit Provider Nurse Practitioner Family
DX: Z12.31 Encounter for screening mammogram for malignant neoplasm of breast (principal); Z80.3 Family history of malignant neoplasm of breast
CPT/HCPCS: 77063; 77067

== ENCOUNTER → 2020-10-22 15:35 | Outpatient (CLI) | payer OTHER, SELFPAY ==
--- NOTE | 2020-10-22 15:36 | DI.RAD.S_ITS ---
PROCEDURE: XR RIBS LT 2V INDICATIONS: left rib pain TECHNIQUE: 2 views of the left ribs were acquired. COMPARISON: None. FINDINGS: Surgical changes and devices: None. Bones and chest wall: No fractures or dislocations. No suspicious bony lesions. Overlying soft tissues appear unremarkable. Lungs and pleura: The visualized lung appears clear. No pleural effusions or pneumothorax are visible. IMPRESSION: No displaced left rib fractures. Dictated by: Kay Guevara M.D. on 10/22/2020 at 16:48 Approved by: Kay Guevara M.D. on 10/22/2020 at 16:50
== END ==
PROVIDERS: Family Provider Family Medicine; PCP Nurse Practitioner Family; Referring Provider Nurse Practitioner Family; Visit Provider Nurse Practitioner Family
DX: R07.81 Pleurodynia (principal)
CPT/HCPCS: 71100

== ENCOUNTER 2020-11-28 11:40 | Emergency (ER) | payer OTHER, SELFPAY ==
[2020-11-28 11:40] VITALS: BP 183/88; PULSE 90; RESP 18; TEMP 37; O2SAT 99; BMI 39.4
--- NOTE | 2020-11-28 12:22 | ED.BACK ---
HPI - Back Pain/Injury <ASHOK Basurto - Last Filed: 11/28/20 14:59> General Chief Complaint: Back Pain/Injury Stated Complaint: extreme back pain, ongoing for 6 months Time Seen by Provider: 11/28/20 11:52 Source: patient Mode of arrival: Ambulatory Limitations: no limitations History of Present Illness HPI Narrative: The patient is a 50-year-old female nonsmoker with history of GERD who presents with a chief complaint of left-sided back pain. She states has been ongoing for 6 months. She states that yesterday was very bad, so she came to the emergency department today. She states her pain is 8/10, has not taken anything for pain today. She states that she has been in physical therapy for the past 3.5 weeks, she thinks that might be making it slightly worse. She has used ibuprofen in the past. She denies any dysuria urgency or frequency. Upon being asked who she has seen for her back pain before, she states who haven't I seen.She denies any numbness or tingling. She denies any incontinence of bowel or incontinence of bladder. She does note that she works on her feet at [employer]. Related Data Home Medications Medication Instructions Recorded Confirmed ibuprofen 600 mg PO Q8H PRN 11/28/20 11/28/20 Previous Rx's Medication Instructions Recorded cyclobenzaprine 10 mg PO TID PRN #10 tab 11/28/20 ketorolac 10 mg PO TID PRN 5 Days #14 tab 11/28/20 lidocaine 1 patch TOPICAL DAILY PRN #15 ea 11/28/20 sulfamethoxazole-trimethoprim 1 tab PO BID #14 tab 11/28/20 [Bactrim DS] Allergies Allergy/AdvReac Type Severity Reaction Status Date / Time No Known Drug Allergies Allergy Verified 11/28/20 11:51 Review of Systems <ASHOK Basurto - Last Filed: 11/28/20 14:59> Review of Systems Narrative: GENERAL: Denies chills, fatigue, malaise, fever, sweats. HEENT: Denies sinus pain, ear pain, sore throat, difficulty swallowing, dizziness. RESPIRATORY: Denies dyspnea, cough, wheezing, hemoptysis, sputum. CARDIOVASCULAR: Denies chest pain, palpitations, orthopnea, edema, GASTROINTESTINAL: Denies nausea, vomiting, abdominal pain, diarrhea, constipation, melena. : Denies dysuria, frequency, incontinence, hematuria, urinary retention. MUSCULOSKELETAL: See HPI SKIN: Denies rash, skin lesions, or other NEUROLOGIC: Denies weakness, headache, numbness, change in speech, confusion, seizures, incoordination. PSYCHIATRIC: No concerning psychosocial issues. 12 point review of systems is negative except for those stated above Patient History <ASHOK Basurto - Last Filed: 11/28/20 14:59> Medical History Abnormal renal ultrasound BMI 40.0-44.9, adult Elevated blood sugar Elevated LDL cholesterol level Epigastric abdominal pain (07/2019) Essential hypertension () GERD (gastroesophageal reflux disease) Hypertension Low back pain (08/2019) Rib pain on left side Shoulder pain Skin lesion Sleep apnea Upper back pain on left side (05/2019) Surgical History History of bladder surgery Hx of section Family History Mother Liver failure Father Cancer Diabetes mellitus Hypertension Hyperlipidemia Brother Diabetes mellitus Hypertension Grandfather Diabetes mellitus Hypertension Grandmother Diabetes mellitus Hypertension Social History household members: family and children occupational status: employed Smoking Status: Never smoker alcohol intake: never substance use type: does not use Smoking Status: Never smoker alcohol intake frequency: 0-2 drinks per day Substance Use Type: does not use Exam <ASHOK Basurto - Last Filed: 11/28/20 14:59> Narrative Exam Narrative: GENERAL: This is a well-nourished, well-developed patient, no acute distress HEAD: Atraumatic. Normocephalic. No temporal or scalp tenderness. EYES: Pupils equal round and reactive. Extraocular motions intact. No scleral icterus. No injection or drainage. ENT: Nose without bleeding, purulent drainage or septal hematoma. T wearing a mask Airway patent. NECK: Trachea midline. No JVD or lymphadenopathy. Supple, nontender, no meningeal signs. CARDIOVASCULAR: Regular rate and rhythm RESPIRATORY: No cough. No increased respiratory effort. No accessory muscle use. EXTREMITIES: No clubbing, cyanosis, or edema. No joint tenderness, effusion, or edema noted. Strength is equal upper lower extremities bilaterally. BACK: Midline CT and L-spine are Nontender without deformity or crepitance. No palpable step-offs or deformities. Pain to palpation left lumbar paraspinal muscles. NEURO: AOx3. SKIN: No rash or erythema on visible skin. Initial Vital Signs Initial Vital Signs: Vital Signs Temperature 98.6 F 11/28/20 11:40 Pulse Rate 90 11/28/20 11:40 Respiratory Rate 18 11/28/20 11:40 Blood Pressure 183/88 H 11/28/20 11:40 Pulse Oximetry 99 11/28/20 11:40 <Graciela Green DO - Last Filed: 11/28/20 18:49> Initial Vital Signs Initial Vital Signs: Vital Signs Temperature 98.6 F 11/28/20 11:40 Pulse Rate 90 11/28/20 11:40 Respiratory Rate 18 11/28/20 11:40 Blood Pressure 183/88 H 11/28/20 11:40 Pulse Oximetry 99 11/28/20 11:40 Scores <ASHOK Basurto - Last Filed: 11/28/20 14:59> GCS [place] coma scale eye opening: Spontaneous [place] coma scale verbal response: Orientated [place] coma scale motor response: Obey commands [place] coma scale total score: 15 Course <ASHOK Basurto - Last Filed: 11/28/20 14:59> Orders Ordered: ED Orders 11/28/20 11:55 Urine Culture Stat Urine Microscopic Stat Discontinued Medications Cyclobenzaprine HCl (Cyclobenzaprine 10 Mg Tablet) 10 mg PO NOW ONE Stop: 11/28/20 12:21 Last Admin: 11/28/20 12:48 Dose: 10 mg Documented by: YUN Ketorolac Tromethamine (Ketorolac 60 Mg/2 Ml Vial) 30 mg IM NOW ONE Stop: 11/28/20 12:21 Last Admin: 11/28/20 12:48 Dose: 30 mg Documented by: YUN Lidocaine (Lidocaine Patch 1 Each Adh..Patch) 1 each TOP NOW ONE Stop: 11/28/20 12:21 Last Admin: 11/28/20 12:49 Dose: 1 each Documented by: YUN Lidocaine (Remove Lidocaine Patch) 1 each TOP BEDTIME CORTNEY Vital Signs Vital signs: Vital Signs - 8 hr 11/28/20 11:40 11/28/20 14:06 Temperature 98.6 F Pulse Rate 90 74 Respiratory Rate 18 14 Blood Pressure 183/88 H 119/73 Pulse Oximetry 99 97 <Graciela Green DO - Last Filed: 11/28/20 18:49> Orders Ordered: ED Orders 11/28/20 11:55 Urine Culture Stat Urine Microscopic Stat Discontinued Medications Cyclobenzaprine HCl (Cyclobenzaprine 10 Mg Tablet) 10 mg PO NOW ONE Stop: 11/28/20 12:21 Last Admin: 11/28/20 12:48 Dose: 10 mg Documented by: YUN Ketorolac Tromethamine (Ketorolac 60 Mg/2 Ml Vial) 30 mg IM NOW ONE Stop: 11/28/20 12:21 Last Admin: 11/28/20 12:48 Dose: 30 mg Documented by: YUN Lidocaine (Lidocaine Patch 1 Each Adh..Patch) 1 each TOP NOW ONE Stop: 11/28/20 12:21 Last Admin: 11/28/20 12:49 Dose: 1 each Documented by: YUN Lidocaine (Remove Lidocaine Patch) 1 each TOP BEDTIME CORTNEY Vital Signs Vital signs: Vital Signs - 8 hr 11/28/20 11:40 11/28/20 14:06 Temperature 98.6 F Pulse Rate 90 74 Respiratory Rate 18 14 Blood Pressure 183/88 H 119/73 Pulse Oximetry 99 97 MDM - Back Pain/Injury <ASHOK Basurto - Last Filed: 11/28/20 14:59> Lab Data Labs: Lab Results 11/28/20 Range/Units 11:55 Urine RBC 0-1/hpf (0-5/HPF) Urine WBC 5-10/hpf H (0-5/HPF) Ur Squamous Epith Cells 10-30 /hpf H (0-5/HPF) Urine Bacteria Moderate (10-30) H (None) Ur Culture Indicated? Specimen cultured Point of Care Testing Test Results Positive Urine Dip Bedside Urine Glucose Negative Bedside Urine Bilirubin - Negative Bedside Urine Ketone - Negative Urine Specific [place] 1.030 Bedside Urine Occult Blood - Negative Bedside Urine pH 6.0 Bedside Urine Protein - Negative Bedside Urine Urobilinogen - Negative Bedside Urine Nitrite - Negative Bedside Urine Leukocytes + 70 Esterase MDM Narrative Medical decision making narrative: The patient is a 50-year-old female nonsmoker presents with a chief complaint of lower back pain ongoing for the past 6 months. She denies any acute red flag symptoms such as incontinence of bowel, incontinence of bladder or numbness in her groin, states understanding that these are strict return precautions. Given bacteria, leukocyte esterase in her urine will treat for urinary tract infection at this time. She does not have any fevers or vomiting that would indicate pyelonephritis. She does feel much improved after the above-stated therapies, so prescriptions prescribed. I did discussed at length that she needs to follow up with primary care provider in the next few days. Discussed at length strict ER return precautions including fever, inability keep down fluids, incontinence of bowel incontinence of bladder numbness in her groin. Patient has no questions or concerns upon discharge states understanding return precautions as well as follow-up care. <Graciela Green, - Last Filed: 11/28/20 18:49> Lab Data Labs: Lab Results 11/28/20 Range/Units 11:55 Urine RBC 0-1/hpf (0-5/HPF) Urine WBC 5-10/hpf H (0-5/HPF) Ur Squamous Epith Cells 10-30 /hpf H (0-5/HPF) Urine Bacteria Moderate (10-30) H (None) Ur Culture Indicated? Specimen cultured Point of Care Testing Test Results Positive Urine Dip Bedside Urine Glucose Negative Bedside Urine Bilirubin - Negative Bedside Urine Ketone - Negative Urine Specific [place] 1.030 Bedside Urine Occult Blood - Negative Bedside Urine pH 6.0 Bedside Urine Protein - Negative Bedside Urine Urobilinogen - Negative Bedside Urine Nitrite - Negative Bedside Urine Leukocytes + 70 Esterase Discharge Plan Departure Patient Disposition: Home Clinical Impression: Urinary tract infection Qualifiers: Urinary tract infection type: site unspecified Hematuria presence: with hematuria Qualified Code(s): N39.0 - Urinary tract infection, site not specified Low back pain Qualifiers: Chronicity: acute Back pain laterality: left Sciatica presence: without sciatica Qualified Code(s): M54.5 - Low back pain Instructions: DI for Low Back Pain, DI for Urinary Tract Infection (UTI), DI for Back Strain or Sprain Activity Restrictions/Additional Instructions: Thank you for trusting us with your care today. As discussed, please come back to the emergency department for any acute concerns such as incontinence of bowel incontinence of bladder or numbness in your groin. Please also monitor for fever, inability keep down fluids. I sent 2 prescriptions to [facility] in [place]. This includes an antibiotic, as well as a muscle relaxer which can be sedating and ketorolac or Toradol. I also sent in a prescription of lidocaine patches. I have given you a prescription of Toradol. This is an NSAID. Do not combine it with other NSAIDs such as Aleve or ibuprofen. I suggest taking it with some food, as it can irritate your stomach. Please follow-up with primary care provider in the next few days. Please come back to the emergency department for any acute concerns. Prescriptions: New sulfamethoxazole-trimethoprim [Bactrim DS] 800-160 mg tablet 1 tab PO BID Qty: 14 RF: 0 lidocaine 5 % adhesive patch,medicated 1 patch topical DAILY PRN (Reason: pain) Qty: 15 RF: 0 cyclobenzaprine 10 mg tablet 10 mg PO TID PRN (Reason: muscle spasm) Qty: 10 RF: 0 ketorolac 10 mg tablet 10 mg PO TID PRN (Reason: pain) 5 Days Qty: 14 RF: 0 No Action ibuprofen 600 mg Tablet 600 mg PO Q8H PRN (Reason: Back Pain) RF: 0 Referrals: Haily Stanley ARNP [Primary Care Provider] - <Graciela Green DO - Last Filed: 11/28/20 18:49> Cosign ED Attending Urszula Attestation: I was immediately available in the department for consultation. Documentation has been reviewed.
[2020-11-28] MEDS: CYCLOBENZAPRINE 10 MG TABLET PO (12:48)
[2020-11-28] MEDS: KETOROLAC 60 MG/2 ML VIAL 30 MG IM (12:48)
[2020-11-28] MEDS: LIDOCAINE PATCH 1 EACH ADH..PATCH TOP (12:49)
[2020-11-28 13:02] LABS: Bacteria Urine Moderate (10-30); Culture Indicated Urine Specimen Cultured; RBC Urine 0-1/HPF (0-5/HPF); Squamous Epithelial Cell Urine 10-30 /HPF (0-5/HPF); WBC Urine 5-10/HPF (0-5/HPF)
[2020-11-28 14:06] VITALS: BP 119/73; PULSE 74; RESP 14; O2SAT 97
== END 2020-11-28 14:08 | disposition home or self-care (01) ==
PROVIDERS: Emergency Provider Nurse Practitioner Family; Family Provider Family Medicine; PCP Nurse Practitioner Family
DX: N39.0 Urinary tract infection, site not specified (principal); M54.5 Low back pain
CPT/HCPCS: 81003; 81015; 81025; 87086; 96372; 99281; 99283; J1885

== ENCOUNTER 2020-12-04 10:31 | Emergency (ER) | payer OTHER, SELFPAY ==
[2020-12-04 10:42] VITALS: BP 140/81; PULSE 92; RESP 16; TEMP 36.8; O2SAT 97; BMI 41.1
--- NOTE | 2020-12-04 11:50 | PC.NURSE ---
Patient has had several months or left sided back pain. Patient has tried OTC meds, flexaril, massage, PT with no relief.
--- NOTE | 2020-12-04 11:50 | ED.BACK ---
HPI - Back Pain/Injury General Chief Complaint: Back Pain/Injury Stated Complaint: Back pain has gotten worse since last weekend.. Time Seen by Provider: 12/04/20 10:48 Source: patient Mode of arrival: Ambulatory Limitations: no limitations History of Present Illness HPI Narrative: Patient is a 50-year-old female who has had 6 months of left-sided mid back pain. She has been taking anti-inflammatories. She has been on muscle relaxers. She has also tried lidocaine patches without any improvement. She has also tried physical therapy and has also been to massage therapy. She was seen here in the emergency department approximately 1 week ago for the same symptoms. At that time because of some bacteria in her urine she was diagnosed with the urinary tract infection and sent home on antibiotics. Subsequent review of the urine culture at that time shows that it was mixed aneesh. She was not having any urinary symptoms at the time. She has not had any rash over the area. No vomiting. No change in bowel habits. No urinary symptoms. Related Data Home Medications Medication Instructions Recorded Confirmed ibuprofen 600 mg PO Q8H PRN 11/28/20 11/28/20 Previous Rx's Medication Instructions Recorded cyclobenzaprine 10 mg PO TID PRN #10 tab 11/28/20 lidocaine 1 patch TOPICAL DAILY PRN #15 ea 11/28/20 sulfamethoxazole-trimethoprim 1 tab PO BID #14 tab 11/28/20 [Bactrim DS] hydrocodone-acetaminophen 1 tab PO Q6H PRN #10 tab 12/04/20 methocarbamol [Robaxin-750] 750 mg PO TID PRN #60 tab 12/04/20 Allergies Allergy/AdvReac Type Severity Reaction Status Date / Time No Known Drug Allergies Allergy Verified 12/04/20 10:41 Review of Systems Constitutional Constitutional: Denies fever(s) and Denies headache(s) ENT Ears, Nose, Mouth, and Throat: Denies headache(s) Cardiovascular Cardiovascular: Denies chest pain and Denies dyspnea Respiratory Respiratory: Denies dyspnea Gastrointestinal Gastrointestinal: Denies abdominal pain Musculoskeletal Musculoskeletal: Denies abnormal gait, Denies arthralgias, Reports back pain, Denies myalgias and Denies tingling Integumentary/Breasts Skin/Breast: Denies rash Neurologic Neurologic: Denies abnormal gait, Denies behavioral changes, Denies headache(s), Denies sensory deficit, Denies tingling and Denies paresthesias Psychiatric Psychiatric: Denies behavioral changes Hematologic/Lymphatic On Anticoagulants: No Allergic/Immunologic Allergic/Immunologic: Denies urticaria Patient History Medical History Abnormal renal ultrasound BMI 40.0-44.9, adult Elevated blood sugar Elevated LDL cholesterol level Epigastric abdominal pain (07/2019) Essential hypertension () GERD (gastroesophageal reflux disease) Hypertension Low back pain (08/2019) Rib pain on left side Shoulder pain Skin lesion Sleep apnea Upper back pain on left side (05/2019) Surgical History History of bladder surgery Hx of section Family History Mother Liver failure Father Cancer Diabetes mellitus Hypertension Hyperlipidemia Brother Diabetes mellitus Hypertension Grandfather Diabetes mellitus Hypertension Grandmother Diabetes mellitus Hypertension Social History household members: family and children occupational status: employed Smoking Status: Never smoker alcohol intake: never substance use type: does not use Smoking Status: Never smoker alcohol intake frequency: 0-2 drinks per day Substance Use Type: does not use Exam Initial Vital Signs Initial Vital Signs: Vital Signs Temperature 98.2 F 12/04/20 10:42 Pulse Rate 92 H 12/04/20 10:42 Respiratory Rate 16 12/04/20 10:42 Blood Pressure 140/81 12/04/20 10:42 Pulse Oximetry 97 12/04/20 10:42 Const General: cooperative and comfortable Limitations: mental status not altered [facility] Head: normal to inspection and normocephalic Resp Effort & Inspection: normal respiratory effort Auscultation: clear to auscultation bilaterally Cardio Rate: regular rate Rhythm: regular rhythm Back/Spine/Pelvis Cervical Spine: No cervical spinal tenderness Thoracic/Lumbar Spine: paraspinal tenderness (Left thoracolumbar), No thoracic spinal tenderness and No lumbar spinal tenderness Skin Lesions: no lesions Rashes: no rashes Neuro General: patient alert, patient awake and patient oriented x3 Cognition: normal cognition Speech: speech normal Gait: normal gait Extrem General: normal to inspection and capillary refill normal Psych Appearance: grossly normal and well kempt Course Orders Ordered: Discontinued Medications Hydromorphone HCl (Hydromorphone 1 Mg Inj) 1 mg IM NOW ONE Stop: 12/04/20 11:51 Last Admin: 12/04/20 11:58 Dose: 1 mg Documented by: HUMAIRA Ketorolac Tromethamine (Ketorolac 60 Mg/2 Ml Vial) 30 mg IM NOW ONE Stop: 12/04/20 11:51 Last Admin: 12/04/20 11:58 Dose: 30 mg Documented by: HUMAIRA Vital Signs Vital signs: Vital Signs - 8 hr 12/04/20 10:42 12/04/20 12:39 Temperature 98.2 F Pulse Rate 92 H 81 Respiratory Rate 16 12 Blood Pressure 140/81 140/86 Pulse Oximetry 97 98 MDM - Back Pain/Injury MDM Narrative Medical decision making narrative: Patient has a very well defined left-sided muscular tenderness. Low suspicion for cauda equina. She has no rash over the area. She is afebrile she states the muscle relaxers do not work for her however this does seem to be very much a muscular issue. Will switch her from Flexeril to Robaxin. However contact her primary provider. She does seem to be doing the other things to include anti-inflammatories and massage and physical therapy. Informed her that she needed to talk with her primary doctor about further workup. She explained understanding and agreement Discharge Plan Departure Patient Disposition: Home Clinical Impression: Back pain Instructions: DI for Back Strain or Sprain Activity Restrictions/Additional Instructions: A prescription for antibiotics was electronically transmitted to the pharmacy of your choice. I recommend that you stop taking the Flexeril as it does not seem to be helping your symptoms. I do recommend that you try taking Naprosyn. Please take this with food. Keep all of your scheduled appointments with your primary provider. Prescriptions: New methocarbamol [Robaxin-750] 750 mg tablet 750 mg PO TID PRN (Reason: muscle spasm) Qty: 60 RF: 0 hydrocodone-acetaminophen 5-325 mg tablet 1 tab PO Q6H PRN (Reason: pain) Qty: 10 RF: 0 No Action ibuprofen 600 mg Tablet 600 mg PO Q8H PRN (Reason: Back Pain) RF: 0 sulfamethoxazole-trimethoprim [Bactrim DS] 800-160 mg tablet 1 tab PO BID Qty: 14 RF: 0 lidocaine 5 % adhesive patch,medicated 1 patch topical DAILY PRN (Reason: pain) Qty: 15 RF: 0 cyclobenzaprine 10 mg tablet 10 mg PO TID PRN (Reason: muscle spasm) Qty: 10 RF: 0 Referrals: Haily Stanley ARNP [Primary Care Provider] -
[2020-12-04] MEDS: KETOROLAC 60 MG/2 ML VIAL 30 MG IM (11:58)
[2020-12-04] MEDS: HYDROMORPHONE 1 MG INJ IM (11:58)
[2020-12-04 12:39] VITALS: BP 140/86; PULSE 81; RESP 12; O2SAT 98
== END 2020-12-04 13:05 | disposition home or self-care (01) ==
PROVIDERS: Emergency Provider Emergency Medicine; Family Provider Family Medicine; PCP Nurse Practitioner Family
DX: M54.6 Pain in thoracic spine (principal)
CPT/HCPCS: 96372; 99283; J1170; J1885

== ENCOUNTER → 2020-12-08 14:50 | Outpatient (CLI) | payer OTHER, SELFPAY ==
[2020-12-08 16:05] LABS: BUN Creatinine Ratio 18.8 (6-22); Blood Urea Nitrogen 13 mg/dL (7-17); Calcium 8.6 mg/dL (8.4-10.2); Carbon Dioxide 26 mmol/L (22-32); Chloride 104 mmol/L (98-107); Cholesterol 188 mg/dL (140-199); Estimated Glomerular Filt Rate > 60.0 mL/min (>60); Glucose 93 mg/dL (70-100); HDL Cholesterol 41 mg/dL (40-60); HEMOLYSIS < 15 (0-50); LDL Cholesterol Calculated 107 mg/dL (<100); Potassium 3.8 mmol/L (3.4-5.1); Sodium 141 mmol/L (137-145); Triglycerides 201 mg/dL (35-150)
--- NOTE | 2020-12-08 16:20 | DI.RAD.S_ITS ---
PROCEDURE: XR THORACIC SPINE 3V INDICATIONS: left mid back pain, ongoing despite conservative treatments TECHNIQUE: 3 views of the thoracic spine were acquired. COMPARISON: [facility], CT, CT ABDOMEN PELVIS WO CON, 06/28/2019, 13:19. FINDINGS: Bones: No fractures or dislocations. No suspicious bony lesions. 12 pairs of ribs are noted, and appear intact where visualized. Minimal early disc degeneration. Soft tissues: No paravertebral stripe thickening. Cholecystectomy clips. IMPRESSION: Endplate osteophytes indicating very mild early multilevel mid and lower thoracic spine disc degeneration. Dictated by: Hernán DRAPER Interpreted: Leonardo Denny MD on 12/08/2020 at 16:44 Approved by: John Etienne M.D. on 12/08/2020 at 16:46
[2020-12-08 16:21] LABS: HCG Quantitative /Beta subunit < 2.4 mIU/mL
== END ==
PROVIDERS: Family Provider Family Medicine; PCP Nurse Practitioner Family; Referring Provider Nurse Practitioner Family; Visit Provider Nurse Practitioner Family
DX: E78.00 Pure hypercholesterolemia, unspecified (principal); R73.9 Hyperglycemia, unspecified; Z13.6 Encounter for screening for cardiovascular disorders; M54.5 Low back pain; N39.0 Urinary tract infection, site not specified; R31.9 Hematuria, unspecified; M54.9 Dorsalgia, unspecified; M54.6 Pain in thoracic spine
CPT/HCPCS: 36415; 72072; 80048; 80061; 84702

== ENCOUNTER → 2020-12-16 07:43 | Outpatient (CLI) | payer OTHER, SELFPAY ==
[2020-12-16] MEDS: COVID-19 VACC #1, MRNA(MOD) 100 MCG/0.5 ML VIAL IM (07:47)
== END ==
PROVIDERS: Family Provider Family Medicine; PCP Nurse Practitioner Family; Visit Provider Internal Medicine
DX: Z23 Encounter for immunization (principal)
CPT/HCPCS: 0011A; 91301

== ENCOUNTER → 2020-12-18 16:31 | Outpatient (CLI) | payer OTHER, SELFPAY ==
--- NOTE | 2020-12-18 16:32 | DI.MRI.S_ITS ---
PROCEDURE: MR THORACIC SPINE WO CON INDICATIONS: left mid back pain, ongoing despite conservative treatments TECHNIQUE: Noncontrast sagittal T1 spine echo and T2 fast spin echo, sagittal STIR, axial T1 and T2 fast spin echo through the thoracic spine. COMPARISON: None. FINDINGS: Image quality: Excellent. Alignment and Curvature: There is normal bony alignment. Bone Marrow: Marrow is of normal overall signal. No acute vertebral body compression fractures. Spinal Cord: Visualized spinal cord is normal in size and signal. Paraspinous Soft Tissues: No paravertebral masses. Miscellaneous: Mild degenerative disc changes noted in the mid and lower spine. On axial images, central canal and foramina appear widely patent at all scanned levels. IMPRESSION: 1. Mild multilevel degenerative disc disease. 2. No central stenosis. 3. No neural foraminal narrowing. 4. No neural compression. Dictated by: Leonora Baker MD, PhD on 12/21/2020 at 12:39 Approved by: Leonora Baker MD, PhD on 12/21/2020 at 12:45
== END ==
PROVIDERS: Family Provider Family Medicine; PCP Nurse Practitioner Family; Referring Provider Nurse Practitioner Family; Visit Provider Nurse Practitioner Family
DX: M51.34 Other intervertebral disc degeneration, thoracic region (principal)
CPT/HCPCS: 72146

== ENCOUNTER → 2020-12-29 10:59 | Outpatient (CLI) | payer OTHER, SELFPAY ==
--- NOTE | 2020-12-29 11:00 | DI.US.S_ITS ---
PROCEDURE: US RENAL COMPLETE INDICATIONS: stability TECHNIQUE: Real-time scanning was performed of the kidneys and bladder, with image documentation. COMPARISON: [facility], CT, CT ABDOMEN PELVIS WO CON, 06/28/2019, 13:19. [facility], US, US ABDOMEN COMPLETE, 07/07/2020, 8:04. [facility], US, US ABDOMEN COMPLETE, 08/29/2019, 7:23. [facility], MR, MR THORACIC SPINE WO CON, 12/18/2020, 17:19. [facility], US, US RENAL COMPLETE, 09/01/2020, 8:07. FINDINGS: Kidneys: Kidneys are normal in size. Right kidney measures 10.4 cm long; left kidney measures 11.7 cm long. Right renal cortical thickness is 1.9 cm; left renal cortical thickness is 1.5 cm. Renal cortical echotexture is normal. No hydronephrosis or nephrolithiasis. No suspicious solid mass lesions. Bladder: Pre-void bladder volume is 459 mL. Post-void residual is 0 mL. Pre-void images demonstrate no intraluminal masses or stones. On pre-void images, the right but not left ureteral jets are noted with color Doppler interrogation. (Of note, ureteral jets may not be detectable in up to 25% of cases due to insufficient differences in specific gravity between ureteral and bladder urine). Miscellaneous: No free pelvic fluid. IMPRESSION: Unchanged hypoechoic area in the right superior pole most likely a prominent column of Zafar. Dictated by: Nam Tobar M.D. on 12/29/2020 at 12:13 Approved by: Nam Tobar M.D. on 12/29/2020 at 12:19
== END ==
PROVIDERS: Family Provider Family Medicine; PCP Nurse Practitioner Family; Referring Provider Nurse Practitioner Family; Visit Provider Nurse Practitioner Family
DX: R93.421 Abnormal radiologic findings on diagnostic imaging of right kidney (principal)
CPT/HCPCS: 76770

== ENCOUNTER 2021-01-06 12:37 | Emergency (ER) | payer OTHER, SELFPAY ==
[2021-01-06 12:40] VITALS: BP 182/118; PULSE 114; RESP 18; TEMP 36.9; O2SAT 98; BMI 40.7
[2021-01-06 13:04] LABS: Prothrombin Time 11.4 SECONDS (10.1-12.7)
[2021-01-06 13:06] LABS: PTT Partial Thromboplastin Tim 34 SECONDS (26.4-36.2)
[2021-01-06 13:07] LABS: HEMOLYSIS < 15 (0-50); Potassium 3.7 mmol/L (3.4-5.1)
[2021-01-06 13:08] LABS: Add Manual Diff / Slide Review NO; Alanine Aminotransferase 23 IU/L (<35); Albumin 4.5 g/dL (3.5-5.0); Albumin Globulin Ratio 1.5 (1.0-2.8); Alkaline Phosphatase 63 U/L (38-126); Aspartate Aminotransferase 28 IU/L (14-36); BUN Creatinine Ratio 16.4 (6-22); Basophils Absolute Auto 100 /uL (0-100); Basophils Percent Auto 0.7 % (0-2); Bilirubin Total 0.3 mg/dL (0.2-1.3); Blood Urea Nitrogen 12 mg/dL (7-17); Calcium 8.9 mg/dL (8.4-10.2); Carbon Dioxide 24 mmol/L (22-32); Chloride 108 mmol/L (98-107); Eosinophils Absolute Auto 100 /uL (0-450); Eosinophils Percent Auto 1.4 % (2-4); Estimated Glomerular Filt Rate > 60.0 mL/min (>60); Globulin 3.1 g/dL (1.7-4.1); Glucose 104 mg/dL (70-100); Hematocrit 42.3 % (36-46); Hemoglobin 14.9 g/dL (12.0-16.0); Lipase 62 U/L (23-300); Lymphocytes Absolute Auto 2200 /uL (1100-4500); Lymphocytes Percent Auto 29.2 % (25-40); Mean Corpuscular HGB Conc 35.2 % (30-36); Mean Corpuscular Hemoglobin 32.3 PG (26-34); Mean Corpuscular Volume 91.9 fL (80-100); Monocytes Absolute Auto 300 /uL (0-900); Monocytes Percent Auto 4.5 % (3-14); Neutrophils Absolute Auto 4800 /uL (1500-7000); Neutrophils Percent Auto 64.2 % (50-75); Platelet Count 349 X10^3/uL (150-400); Red Cell Distribution Width 12.2 % (11.6-14.8); Sodium 143 mmol/L (137-145); Total Protein 7.6 g/dL (6.3-8.2); White Blood Cell Count 7.4 X10^3/uL (4.5-11.0)
[2021-01-06 14:02] VITALS: BP 162/92; PULSE 98; O2SAT 98
[2021-01-06 14:30] VITALS: PULSE 97; O2SAT 96
[2021-01-06 15:00] VITALS: PULSE 91; O2SAT 96
--- NOTE | 2021-01-06 15:04 | ED_ITS ---
HPI - Abdominal Pain General Chief Complaint: Abdominal Pain Stated Complaint: Left side pain/sob x2 days Time Seen by Provider: 01/06/21 14:35 Source: patient Mode of arrival: Ambulatory Limitations: no limitations History of Present Illness HPI narrative: 50-year-old woman with a history of mild reflux symptoms and 6 months of thoracic back pain that is had fairly thorough workup including abdominal ultrasound that revealed a renal cyst that has been followed up and is stable and non changing, rib x-rays, thoracic spine x-rays and thoracic spine MRI just 2 weeks ago. She finds that muscle relaxers can help her go to sleep but nothing really seems to alleviate pain. She has been using ibuprofen and Tylenol at home. She comes in today because the last 48 hours the pain has now been radiating forward which is a completely new finding for her. She is having trouble sleeping and having trouble finding any comfortable position which is causing her to splint on the left side which makes her feel like she is short of breath. She denies fever, cough, palpitations, chills, abdominal pain, change to bowel or bladder habits, dysuria, flank pain or any skin changes. She notes that she does get a weekly massaged and her massage therapist was concerned about a rash on her back over the left flank Related Data Previous Rx's Medication Instructions Recorded lidocaine 1 patch TOPICAL DAILY PRN #15 ea 11/28/20 hydrocodone-acetaminophen 1 tab PO Q6H PRN #10 tab 12/04/20 methocarbamol [Robaxin-750] 750 mg PO TID PRN #60 tab 12/04/20 gabapentin 300 mg PO BEDTIME #30 cap 01/06/21 oxycodone-acetaminophen 1 tab PO Q6H PRN #14 tab 01/06/21 Allergies Allergy/AdvReac Type Severity Reaction Status Date / Time No Known Drug Allergies Allergy Verified 01/06/21 12:41 Review of Systems Review of Systems Narrative: Remainder of review is otherwise unremarkable Patient History Medical History Abnormal renal ultrasound BMI 40.0-44.9, adult Elevated blood sugar Elevated LDL cholesterol level Epigastric abdominal pain (07/2019) Essential hypertension (~2018) GERD (gastroesophageal reflux disease) Hypertension Low back pain (08/2019) Rib pain on left side Shoulder pain Skin lesion Sleep apnea Upper back pain on left side (05/2019) Surgical History History of bladder surgery Hx of section Family History Mother Liver failure Father Cancer Diabetes mellitus Hypertension Hyperlipidemia Brother Diabetes mellitus Hypertension Grandfather Diabetes mellitus Hypertension Grandmother Diabetes mellitus Hypertension Social History household members: family and children occupational status: employed Smoking Status: Never smoker alcohol intake: never substance use type: does not use Smoking Status: Never smoker alcohol intake frequency: holidays/special occasions only Substance Use Type: does not use Exam Narrative Exam Narrative: General: Healthy appearing, in no acute distress. Able to give a complete and coherent history. Well-nourished well-developed, able to move around for physical exam and get up and go to the bathroom without any antalgic behavior HEENT: Moist mucous membranes, normal sclera with reactive pupils, Neck: No JVD, supple Respiratory: Lungs are clear to auscultation, no wheezing no rales no rhonchi. Full and symmetrical air movement Spine: No tenderness along the thoracic spine. No vesicular lesions to suggest zoster. Over the lower posterior ribs she has an area of erythema ab igne(rash from heating pad) Cardiac: Regular rate and rhythm no murmurs no bruits Abdomen: Soft, nontender, good bowel tones, no flank pain Skin: Warm and dry, no rashes Neurologic: Grossly neurologically intact with no obvious asymmetries or abnormalities Extremities: No trauma, well perfused Psych: Cooperative, appropriate insight and affect Initial Vital Signs Initial Vital Signs: Vital Signs Temperature 98.4 F 01/06/21 12:40 Pulse Rate 114 H 01/06/21 12:40 Respiratory Rate 18 01/06/21 12:40 Blood Pressure 182/118 H 01/06/21 12:40 Pulse Oximetry 98 01/06/21 12:40 Course Orders Ordered: ED Orders 01/06/21 12:44 EKG-12 Lead Stat 01/06/21 12:50 Complete Blood Count AUTO DIFF Stat Comprehensive Metabolic Panel Stat Lipase Stat Partial Thromboplastin Time Stat Prothrombin Time INR Stat 01/06/21 15:20 CT chest w con Stat Discontinued Medications Ketorolac Tromethamine (Ketorolac 60 Mg/2 Ml Vial) 15 mg IV NOW ONE Stop: 01/06/21 15:23 Last Admin: 01/06/21 15:36 Dose: 15 mg Documented by: KERVIN Vital Signs Vital signs: Vital Signs - 8 hr 01/06/21 12:40 01/06/21 14:02 01/06/21 14:30 Temperature 98.4 F Pulse Rate 114 H 98 H 97 H Respiratory Rate 18 Blood Pressure 182/118 H 162/92 H Pulse Oximetry 98 98 96 01/06/21 15:00 01/06/21 15:30 Temperature Pulse Rate 91 H 92 H Respiratory Rate Blood Pressure Pulse Oximetry 96 96 MDM - Abdominal Pain Medical Records Attestation: I reviewed the patient's medical records. Lab Data Attestation: I reviewed the patient's lab results. Result diagrams: 01/06/21 12:50 01/06/21 12:50 Labs: Lab Results 01/06/21 01/06/21 01/06/21 Range/Units 12:50 12:50 12:50 WBC 7.4 (4.5-11.0) X10^3/uL RBC 4.60 (4.0-5.2) X10^6/uL Hgb 14.9 (12.0-16.0) g/dL Hct 42.3 (36-46) % MCV 91.9 (80-100) fL MCH 32.3 (26-34) PG MCHC 35.2 (30-36) % RDW 12.2 (11.6-14.8) % Plt Count 349 (150-400) X10^3/uL Neut % (Auto) 64.2 (50-75) % Lymph % (Auto) 29.2 (25-40) % [place] % (Auto) 4.5 (3-14) % Eos % (Auto) 1.4 L (2-4) % Baso % (Auto) 0.7 (0-2) % Neut # (Auto) 4800 (7904-4131) /uL Lymph # (Auto) 2200 (4484-0033) /uL [place] # (Auto) 300 (0-900) /uL Eos # (Auto) 100 (0-450) /uL Baso # (Auto) 100 (0-100) /uL PT 11.4 (10.1-12.7) SECONDS INR 1.0 (0.9-1.3) APTT 34 (26.4-36.2) SECONDS Sodium 143 (137-145) mmol/L Potassium 3.7 (3.4-5.1) mmol/L Chloride 108 H (98-107) mmol/L Carbon Dioxide 24 (22-32) mmol/L BUN 12 (7-17) mg/dL Creatinine 0.73 (0.52-1.04) mg/dL Estimated GFR > 60.0 (>60) mL/min BUN/Creatinine Ratio 16.4 (6-22) Glucose 104 H (70-100) mg/dL Calcium 8.9 (8.4-10.2) mg/dL Total Bilirubin 0.3 (0.2-1.3) mg/dL AST 28 (14-36) IU/L ALT 23 (<35) IU/L Alkaline Phosphatase 63 (38-126) U/L Total Protein 7.6 (6.3-8.2) g/dL Albumin 4.5 (3.5-5.0) g/dL Globulin 3.1 (1.7-4.1) g/dL Albumin/Globulin Ratio 1.5 (1.0-2.8) Lipase 62 (23-300) U/L Point of care testing: Point of Care Testing Test Results Negative Urine Dip Bedside Urine Glucose Negative Bedside Urine Bilirubin - Negative Bedside Urine Ketone - Negative Urine Specific [place] 1.030 Bedside Urine Occult Blood +++ Bedside Urine pH 5.5 Bedside Urine Protein - Negative Bedside Urine Urobilinogen - Negative Bedside Urine Nitrite - Negative Bedside Urine Leukocytes - Negative Esterase Imaging Data MRI thoracic spine December 18, 2020: Radiologist's Impression: FINDINGS: Image quality: Excellent. Alignment and Curvature: There is normal bony alignment. Bone Marrow: Marrow is of normal overall signal. No acute vertebral body compression fractures. Spinal Cord: Visualized spinal cord is normal in size and signal. Paraspinous Soft Tissues: No paravertebral masses. Miscellaneous: Mild degenerative disc changes noted in the mid and lower spine. On axial images, central canal and foramina appear widely patent at all scanned levels. IMPRESSION: 1. Mild multilevel degenerative disc disease. 2. No central stenosis. 3. No neural foraminal narrowing. 4. No neural compression. Dictated by: Leonora Baker MD, PhD on 12/21/2020 at 12:39 CT scan - chest: Radiologist's Impression: FINDINGS: Image quality: Excellent. Lungs and pleura: No acute air space opacities. No pleural effusions or pneumothorax. Central and peripheral airways are patent and normal in caliber. Mediastinum: Heart size is normal. No pericardial effusion. No mediastinal or hilar adenopathy by size criteria. Thoracic aorta and central pulmonary arteries are normal in size. Esophagus is normal in caliber. No hiatal hernia. Bones and chest wall: No suspicious bony lesions. No vertebral body compression fractures. No axillary or supraclavicular adenopathy by size criteria. Thyroid gland is unremarkable as imaged. A minimal posterior disc protrusion at T7-T8 is seen MRI. It is not identifiable by CT. It does not result in canal stenosis or foraminal stenosis. Reference previous image reference previous image 05/22 (T2 sagittal sequence). Abdomen: Gallbladder is surgically absent. Visualized upper abdominal solid organs appear normal. Upper abdominal bowel loops are normal in caliber. IMPRESSION: 1. A very minimal central posterior disc protrusion is present at T7-T8 without canal stenosis, of uncertain clinical significance. This is visual on MRI but not CT. 2. Otherwise negative chest CT. No evidence of acute pulmonary process. Dictated by: Quintin Baker M.D. on 01/06/2021 at 16:49 ECG Data Attestation: I personally reviewed and interpreted this ECG as follows: Interpretation: Sinus rhythm at a rate of 99 Normal axis, normal intervals No acute ischemic changes MDM Narrative Medical decision making narrative: 50-year-old woman presents with left rib chest/back pain. This was on issue for the last 6 months she has had x-rays and an MRI of her thoracic spine. Because the pain has been ongoing for 6 months is worsening and spreading forward a chest CT was done today that did not show any significant intrathoracic or chest wall pathology today. Labs are equally reassuring. At this point I believe it is safe to simply cover up her pain and have given her a short prescription for Percocet. Have also requested that she follow up with her primary care physician. In terms of next appropriate steps for follow-up she may benefit from a physiatry referral to see if there may be underlying nerve issues that are causing this pain. We did discuss adding 300 mg of gabapentin in the evening to see if this might help with the chronic degree of neuropathic pain. Risks and benefits of starting this medication reviewed with patient. Asked her to follow-up again with her primary care physician. Discharge Plan Departure Patient Disposition: Home Clinical Impression: Rib pain on left side Instructions: Neuropathic Pain Activity Restrictions/Additional Instructions: Thank you for coming in today I think it is a bit puzzling that you are continuing to have this left-sided rib pain. The fact that it was getting worse over the last couple of days I am certainly makes further evaluation appropriate. Fortunately the CT scan of your chest did not show any severe pathology, there was no tumors, masses pneumonia, rib fractures or other explanations for the pain that you are experiencing. Your lab work was equally reassuring. At this point, I believe it is safe for you to simply cover up the pain. I am going to give you a small prescription of Percocet. Using 400 mg of ibuprofen (2 evgn-sdj-jxoxiro pills) and 1 Tylenol every 6 missy rs can be very helpful in controlling pain. For severe pain you can use to ibuprofen and 1 Percocet. Percocet will make you constipated as it is a narcotic, please add fiber/water/stool softeners to prevent this. I am also going to suggest that you try a medicine called gabapentin, this helps with nerve pain. Please began 300 mg at bedtime and see how it works. If it works well, this may be of prescription that your primary care physician will be able to fill for you. If you feel that your having adverse side effects from the gabapentin, please stop it. Prescriptions have been electronically transmitted to [facility] in [place] for you today Make sure that you are following up with your primary care physician. Given the extent of workup that you have had so far, the next step may be seeing a animal cytologist to help with other diagnostic studies. I wish you the best Prescriptions: New oxycodone-acetaminophen 5-325 mg tablet 1 tab PO Q6H PRN (Reason: pain) Qty: 14 RF: 0 gabapentin 300 mg capsule 300 mg PO BEDTIME Qty: 30 RF: 0 No Action lidocaine 5 % adhesive patch,medicated 1 patch topical DAILY PRN (Reason: pain) Qty: 15 RF: 0 methocarbamol [Robaxin-750] 750 mg tablet 750 mg PO TID PRN (Reason: muscle spasm) Qty: 60 RF: 0 hydrocodone-acetaminophen 5-325 mg tablet 1 tab PO Q6H PRN (Reason: pain) Qty: 10 RF: 0 Referrals: Haily Stanley ARNP [Primary Care Provider] -
--- NOTE | 2021-01-06 15:20 | DI.CT.S_ITS ---
PROCEDURE: CT CHEST W CON INDICATIONS: persistent, increasing L thorasic pain, now radiating forwar TECHNIQUE: After the administration of intravenous contrast, 5 mm thick sections acquired from the pulmonary apices to the posterior costophrenic angles. 1 mm axial lung, 5 mm thick coronal and sagittal reformats and 7 mm axial MIP were acquired. For radiation dose reduction, the following was used: automated exposure control, adjustment of mA and/or kV according to patient size. COMPARISON: [facility], MR, MR THORACIC SPINE WO CON, 12/18/2020, 17:19. FINDINGS: Image quality: Excellent. Lungs and pleura: No acute air space opacities. No pleural effusions or pneumothorax. Central and peripheral airways are patent and normal in caliber. Mediastinum: Heart size is normal. No pericardial effusion. No mediastinal or hilar adenopathy by size criteria. Thoracic aorta and central pulmonary arteries are normal in size. Esophagus is normal in caliber. No hiatal hernia. Bones and chest wall: No suspicious bony lesions. No vertebral body compression fractures. No axillary or supraclavicular adenopathy by size criteria. Thyroid gland is unremarkable as imaged. A minimal posterior disc protrusion at T7-T8 is seen MRI. It is not identifiable by CT. It does not result in canal stenosis or foraminal stenosis. Reference previous image reference previous image 05/22 (T2 sagittal sequence). Abdomen: Gallbladder is surgically absent. Visualized upper abdominal solid organs appear normal. Upper abdominal bowel loops are normal in caliber. IMPRESSION: 1. A very minimal central posterior disc protrusion is present at T7-T8 without canal stenosis, of uncertain clinical significance. This is visual on MRI but not CT. 2. Otherwise negative chest CT. No evidence of acute pulmonary process. Dictated by: Quintin Baker M.D. on 01/06/2021 at 16:49 Approved by: Quintin Baker M.D. on 01/06/2021 at 16:55
[2021-01-06 15:30] VITALS: PULSE 92; O2SAT 96
[2021-01-06] MEDS: KETOROLAC 60 MG/2 ML VIAL 15 MG IV (15:36)
[2021-01-06 17:47] VITALS: BP 146/87; PULSE 81; O2SAT 97
== END 2021-01-06 17:47 | disposition home or self-care (01) ==
PROVIDERS: Emergency Medicine; Emergency Provider Emergency Medicine; Family Provider Family Medicine; PCP Nurse Practitioner Family
DX: R07.81 Pleurodynia (principal); R06.02 Shortness of breath
CPT/HCPCS: 36415; 71260; 80053; 81003; 81025; 83690; 85025; 85610; 85730; 93005; 93010; 96374; 99284; J1885; Q9967

== ENCOUNTER → 2021-01-13 10:23 | Outpatient (CLI) | payer OTHER, SELFPAY ==
[2021-01-13] MEDS: COVID-19 VACC #2, MRNA(MOD) 100 MCG/0.5 ML VIAL IM (10:28)
== END ==
PROVIDERS: Family Provider Family Medicine; PCP Nurse Practitioner Family; Visit Provider Internal Medicine
DX: Z23 Encounter for immunization (principal)
CPT/HCPCS: 0012A; 91301

== ENCOUNTER 2021-01-27 20:13 | Emergency (ER) | payer OTHER, SELFPAY ==
[2021-01-27 20:26] VITALS: BP 147/91; PULSE 91; RESP 20; TEMP 37.1; O2SAT 100
--- NOTE | 2021-01-27 22:19 | ED.BACK ---
HPI - Back Pain/Injury General Chief Complaint: Back Pain/Injury Stated Complaint: left rib pain Time Seen by Provider: 01/27/21 21:40 Source: patient History of Present Illness HPI Narrative: 50-year-old woman with the history of mild reflux presents for the 2nd time in 2 months with complaints of left-sided musculoskeletal type pain. It is been present for 9 months is getting significantly worse and today the pain is getting to the point it is unbearable period last month in the emergency room she had a chest CT that was done that showed no significant abnormalities. Further workup had already included rib x-rays, chest x-ray, thoracic spine x-ray, thoracic spine MRI. She was discharged home previously with gabapentin to use at nighttime and 10 tablets of oxycodone which she judiciously spread over the course of a month in dealing with her overall pain. She comes in today complaining that it is significantly worse, much more localized and she is hoping for help in further diagnostic suggestions. She continues to deny fevers, chills, vomiting, diarrhea, abdominal pain, headache, unexplained weight loss. Related Data Previous Rx's Medication Instructions Recorded lidocaine 1 patch TOPICAL DAILY PRN #15 ea 11/28/20 hydrocodone-acetaminophen 1 tab PO Q6H PRN #10 tab 12/04/20 methocarbamol [Robaxin-750] 750 mg PO TID PRN #60 tab 12/04/20 gabapentin 300 mg PO BEDTIME #30 cap 01/06/21 oxycodone-acetaminophen 1 tab PO Q6H PRN #14 tab 01/06/21 oxycodone-acetaminophen 1 tab PO Q6H PRN 30 Days #20 tab 01/28/21 Allergies Allergy/AdvReac Type Severity Reaction Status Date / Time No Known Drug Allergies Allergy Verified 01/06/21 12:41 Review of Systems Review of Systems Narrative: Remainder of complete review of systems is otherwise unremarkable except for that included in the HPI. Patient History Medical History Abnormal renal ultrasound BMI 40.0-44.9, adult Elevated blood sugar Elevated LDL cholesterol level Epigastric abdominal pain (07/2019) Essential hypertension (~2018) GERD (gastroesophageal reflux disease) Hypertension Low back pain (08/2019) Rib pain on left side Shoulder pain Skin lesion Sleep apnea Upper back pain on left side (05/2019) Surgical History History of bladder surgery Hx of section Family History Mother Liver failure Father Cancer Diabetes mellitus Hypertension Hyperlipidemia Brother Diabetes mellitus Hypertension Grandfather Diabetes mellitus Hypertension Grandmother Diabetes mellitus Hypertension Social History household members: family and children occupational status: employed Smoking Status: Never smoker alcohol intake: never substance use type: does not use Smoking Status: Never smoker alcohol intake frequency: holidays/special occasions only Substance Use Type: does not use Exam Narrative Exam Narrative: General: Alert appropriate in no acute distress Respiratory: Able to speak in full sentences, no obvious respiratory distress, lungs are clear to auscultation Chest: There is a palpable abnormality left anterior line around the level of T10 that is the exact area of pain. It is not obviously definable but feels to be approximately 5 x 3 cm. There is no overlying fluctuance or erythema. Manipulation of this area clearly reproduces the pain of which she complains Skin: No obvious rashes, warm and dry Neurologic: Grossly intact no obvious asymmetries or abnormalities Psych: appropriate insight and affect, cooperative Initial Vital Signs Initial Vital Signs: Vital Signs Temperature 98.8 F 01/27/21 20:26 Pulse Rate 91 H 01/27/21 20:26 Respiratory Rate 20 01/27/21 20:26 Blood Pressure 147/91 H 01/27/21 20:26 Pulse Oximetry 100 01/27/21 20:26 Course Orders Ordered: ED Orders 01/27/21 22:35 US abdomen limited Stat Discontinued Medications Oxycodone/Acetaminophen (Oxycodone/Acetaminophen 5/325 Tablet) 2 tab PO NOW ONE Stop: 01/27/21 22:18 Last Admin: 01/27/21 22:26 Dose: 2 tab Documented by: COLTON Vital Signs Vital signs: Vital Signs - 8 hr 01/27/21 20:26 01/27/21 23:03 01/28/21 00:28 Temperature 98.8 F Pulse Rate 91 H 86 80 Respiratory Rate 20 16 18 Blood Pressure 147/91 H 148/87 H 141/81 H Pulse Oximetry 100 97 98 MDM - Back Pain/Injury Medical Records Attestation: I reviewed the patient's medical records. Lab Data Attestation: I reviewed the patient's lab results. Labs: Urine Dip Bedside Urine Glucose Negative Bedside Urine Bilirubin - Negative Bedside Urine Ketone - Negative Urine Specific [place] 1.015 Bedside Urine Occult Blood - Negative Bedside Urine pH 7.0 Bedside Urine Protein - Negative Bedside Urine Urobilinogen - Negative Bedside Urine Nitrite - Negative Bedside Urine Leukocytes - Negative Esterase MDM Narrative Medical decision making narrative: 50-year-old woman with 9 months of left rib pain. She has had extensive workup. With the new palpable finding at the exact area of tenderness today CT scan of the chest that was done in December is reviewed in detail in real-time with the radiologist to see if there is any correlating abnormalities in the soft tissues. There does not appear to be any. He recommended ultrasound which was done and shows focal superficial fascial hyperemia with no obvious mass or fluid collection. Pain was much better controlled with oral narcotic in the emergency department her Percocet prescription is refilled. She does have an appointment at the end of the month with a pain specialty clinic. Have also recommended that she schedule an appointment with [facility] for them to examine this area of concern with the palpable abnormality and see if surgical resection/biopsy might be appropriate and helping diagnose this pain. She is safe for home discharge. Questions are answered. Discharge Plan Departure Patient Disposition: Home Clinical Impression: Rib pain on left side Activity Restrictions/Additional Instructions: Thank you for coming in today I am sorry this left-sided pain is continuing to worsen and trouble you. With your visit today I did appreciate a density in the soft tissue area on your left side that clearly correlates with the pain that your experiencing. Of reviewed CT scans of your chest that were done a month ago with the radiologist with specific attention to this area with no obvious findings there. An ultrasound was done today that shows some inflammation in the area but no discrete masses or abscess. I think it continued multi pronged approach in getting to some answers is appropriate at this time. First I will give you additional Percocet to use for pain control. Clearly using only 10 tablets over the last month showing appropriate and cautious use of this medication. Second, I would like you to schedule an appointment with [facility], phone number is [phone]. I would like them to palpate the area of concern and see if they feel a biopsy might be appropriate Third, I would recommend that you continue your scheduled appointment coming up with the pain specialist at the end of the month. I hope you are able to find an answer to this issue. Prescriptions: New oxycodone-acetaminophen 5-325 mg tablet 1 tab PO Q6H PRN (Reason: pain) 30 Days Qty: 20 RF: 0 No Action oxycodone-acetaminophen 5-325 mg tablet 1 tab PO Q6H PRN (Reason: pain) Qty: 14 RF: 0 gabapentin 300 mg capsule 300 mg PO BEDTIME Qty: 30 RF: 0 lidocaine 5 % adhesive patch,medicated 1 patch topical DAILY PRN (Reason: pain) Qty: 15 RF: 0 methocarbamol [Robaxin-750] 750 mg tablet 750 mg PO TID PRN (Reason: muscle spasm) Qty: 60 RF: 0 hydrocodone-acetaminophen 5-325 mg tablet 1 tab PO Q6H PRN (Reason: pain) Qty: 10 RF: 0 Referrals: Haily Stanley ARNP [Primary Care Provider] -
[2021-01-27] MEDS: OXYCODONE/ACETAMINOPHEN 5/325 TABLET 2 TAB PO (22:26)
--- NOTE | 2021-01-27 22:35 | DI.US.S_ITS ---
PROCEDURE: US ABDOMEN LIMITED INDICATIONS: LEFT FLANK SUBCUTANEOUS MASS APPROXIMATELY T10 LEVEL TECHNIQUE: Real-time focused scanning was performed of the abdomen, with image documentation. COMPARISON: [facility], CT, CT CHEST W CON, 01/06/2021, 16:30. [facility], US, US RENAL COMPLETE, 12/29/2020, 10:37. FINDINGS: A limited ultrasound was performed in the area of left flank. No soft tissue mass or fluid collections. There is mild prominence of vascularity in subcutaneous soft tissue. IMPRESSION: 1. No mass is identified in the area of interest. Mild prominence of vascularity in the subcutaneous soft tissue is nonspecific. No significant discrepancy with the overnight babysitter radiology preliminary report. Dictated by: Kay Guevara M.D. on 01/28/2021 at 7:52 Approved by: Kay Guevara M.D. on 01/28/2021 at 7:55
[2021-01-27 23:03] VITALS: BP 148/87; PULSE 86; RESP 16; O2SAT 97
[2021-01-28 00:28] VITALS: BP 141/81; PULSE 80; RESP 18; O2SAT 98
== END 2021-01-28 00:53 | disposition home or self-care (01) ==
PROVIDERS: Emergency Provider Emergency Medicine; Family Provider Family Medicine; PCP Nurse Practitioner Family
DX: R07.81 Pleurodynia (principal)
CPT/HCPCS: 76705; 81003; 99283

== ENCOUNTER → 2021-02-23 13:18 | Outpatient (CLI) | payer OTHER, SELFPAY ==
[2021-02-23 14:08] LABS: COVID19 -Nasal RAPID Negative (Negative)
== END ==
PROVIDERS: Family Provider Family Medicine; PCP Nurse Practitioner Family; Visit Provider Specialist
DX: Z20.822 Contact with and (suspected) exposure to COVID-19 (principal)
CPT/HCPCS: 87635; C9803

== ENCOUNTER 2021-02-24 11:02 | Day surgery (SDC) | payer OTHER, SELFPAY ==
[2021-02-19 09:49] VITALS: BMI 42.0
[2021-02-24] VITALS (8 sets, daily range): BP systolic 117–157; BP diastolic 71–97; PULSE 70–81; RESP 11–18; TEMP 36.3–36.7; O2SAT 97–99; BMI 42.0
--- NOTE | 2021-02-24 | PATH_ITS ---
[facility] Accession Number: [id number] . 01 Material submitted: . flank - LEFT FLANK MASS . 01 Diagnosis: Left Flank, Excision: Mature adipose tissue, consistent with lipoma. MRV 03/01/2021 0917 Local . 01 Electronically signed: . Oli Toribio MD, Dermatopathologist NPI- [id number] . 01 Gross description: . The specimen is received in formalin, labeled left flank mass and consists of a 4.0 x 4.0 x 3.0 cm irregular conner-yellow lobulated fragment of adipose tissue, which is inked blue, serially sectioned, and billing representative sections are submitted in cassettes A1-A4. ([id number]) /MRV 02/25/2021 1114 Local . 01 Pathologist provided ICD-10: D17.9 . 01 CPT . 370286 Performed at: 01 [facility] [address] [place] [address], [place], [place] [id number] MD Francois Berman MD Phone: [phone]
--- NOTE | 2021-02-24 11:44 | PM.PREOP ---
Pre-operative Note COVID-19 COVID-19 status: Negative Result date/Date tested (Pos, Neg/Pending): 02/23/21 Interval Note History & Physical reviewed/Exam performed by Physician: Yes Changes to H&P: No
[2021-02-24] MEDS: LACTATED RINGERS 1,000 ML 42 ML IV (11:46)
[2021-02-24] MEDS: CEFAZOLIN 1 GM VIAL 2 GM IV (12:13)
--- NOTE | 2021-02-24 12:25 | SUR.OPER ---
Supine on padded OR bed, head on pillow, arms secured on padded arm boards at <90 degrees abduction, legs uncrossed, safety belt at thigh, tape over blanket over lower legs. gel roll under left side to prop patient
[2021-02-24] MEDS: BUPIVACAINE 0.5% (PF) VIAL 30 ML INJ (12:32)
--- NOTE | 2021-02-24 13:00 | PM.OP.1 ---
Operative Date/Time/Diagnoses Date of procedure: 02/24/21 Time of procedure: 13:00 Pre-op diagnosis: Mass left flank Post-op diagnosis: same (Fatty in nature) Procedure & Clinicians Procedure: Excision mass left flank Same procedure as scheduled: Yes Indications: Excision of bothersome mass. It was explained to patient this may not relieve her pain. Surgeon: Samuel Hawkins Click Yes if Unassisted: Yes Anesthesia Type: General Operative Notes Findings: Fatty tissue removed probable lipoma. Tissue removed Measured about 5 x 3 cm. Closure Type: primary Specimen(s): other (Mass) Prosthetic devices, grafts, tissues, transplants, or devices: None Estimated Blood Loss (mL): 5 Procedure in detail: Patient was placed supine on the operating room table and underwent general LMA anesthesia. A bump was placed under her left flank and she was prepped and draped in the usual fashion. The site of the mass had been marked preoperatively with her position that she would be in the OR. An incision was made in Laurent's lines and carried down into the subcu. I dissected the area using principally cautery to remove all the tissues down to fascia overlying the ends of multiple ribs. This tissue was removed. I could not palpate any other abnormality in the area. Subcu was closed with interrupted 3-0 Vicryl in 2 layers. The skin was closed a running 4-0 Vicryl subcuticular stitch and Steri-Strips. Dressing was applied and the patient was awakened extubated and taken the recovery room good condition. Complications: none Post-operative Condition: stable Disposition: PACU Plan for aftercare: Follow-up in the office
[2021-02-24] MEDS: ACETAMINOPHEN 325 MG TABLET 975 MG PO (13:20)
--- NOTE | 2021-02-24 13:30 | SUR.PHASEI ---
Pt transfered to Pacu phase II with SBAR report at bedside to Sanjay Melton RN.
== END 2021-02-24 13:41 | disposition home or self-care (01) ==
PROVIDERS: Family Provider Family Medicine; PCP Nurse Practitioner Family; Referring Provider Specialist; Visit Provider Specialist
PROC: (CPT 21931; principal; 2021-02-24 12:15)
DX: D17.1 Benign lipomatous neoplasm of skin and subcutaneous tissue of trunk (principal); G47.33 Obstructive sleep apnea (adult) (pediatric); E66.9 Obesity, unspecified; Z68.41 Body mass index [BMI] 40.0-44.9, adult
CPT/HCPCS: 21931; 81025; 82962; J0690; J1100; J2250; J2405; J2704; J3010

== ENCOUNTER → 2021-06-17 17:08 | Outpatient (CLI) | payer OTHER, SELFPAY ==
[2021-06-17 17:59] LABS: Albumin 4.2 g/dL (3.5-5.0); BUN Creatinine Ratio 14.1 (6-22); Blood Urea Nitrogen 10 mg/dL (7-17); Calcium 8.6 mg/dL (8.4-10.2); Carbon Dioxide 30 mmol/L (22-32); Chloride 104 mmol/L (98-107); Estimated Glomerular Filt Rate > 60.0 mL/min (>60); Glucose 91 mg/dL (70-100); HEMOLYSIS < 15 (0-50); Phosphorous 3.8 mg/dL (2.5-4.5); Potassium 3.5 mmol/L (3.4-5.1); Sodium 140 mmol/L (137-145)
[2021-06-17 18:58] LABS: Creatinine Urine Random 238.4 mg/dL
[2021-06-17 19:36] LABS: Microalbumi Creatinin Ratio Ur 138.8 ug/mg CR (<30); Microalbumin Urine Random 33.1 mg/dL (0-1.6)
== END ==
LOC: LAB 17:11
PROVIDERS: Family Provider Family Medicine; PCP Nurse Practitioner Family; Referring Provider Internal Medicine Nephrology; Visit Provider Internal Medicine Nephrology
DX: R93.429 Abnormal radiologic findings on diagnostic imaging of unspecified kidney (principal)
CPT/HCPCS: 36415; 80069; 82043; 82570

== ENCOUNTER → 2021-12-07 10:00 | Outpatient (CLI) | payer OTHER, SELFPAY ==
[2021-12-07 10:52] LABS: Hematocrit 40.1 % (36-46); Mean Corpuscular HGB Conc 34.8 % (30-36); Mean Corpuscular Hemoglobin 31.5 PG (26-34); Mean Corpuscular Volume 90.4 fL (80-100); Platelet Count 312 X10^3/uL (150-400); Red Blood Cell Count 4.43 X10^6/uL (4.0-5.2); Red Cell Distribution Width 12.5 % (11.6-14.8)
[2021-12-07 11:08] LABS: Alanine Aminotransferase 21 IU/L (<35); Albumin 4.3 g/dL (3.5-5.0); Albumin Globulin Ratio 1.5 (1.0-2.8); Alkaline Phosphatase 57 U/L (38-126); Aspartate Aminotransferase 25 IU/L (14-36); BUN Creatinine Ratio 16.7 (6-22); Bilirubin Total 0.3 mg/dL (0.2-1.3); Blood Urea Nitrogen 12 mg/dL (7-17); Calcium 8.6 mg/dL (8.4-10.2); Carbon Dioxide 25 mmol/L (22-32); Chloride 106 mmol/L (98-107); Cholesterol 220 mg/dL (140-199); Estimated Glomerular Filt Rate > 60.0 mL/min (>60); Globulin 2.9 g/dL (1.7-4.1); Glucose 102 mg/dL (70-100); HDL Cholesterol 49 mg/dL (40-60); HEMOLYSIS < 15 (0-50); LDL Cholesterol Calculated 149 mg/dL (<100); Potassium 3.8 mmol/L (3.4-5.1); Sodium 138 mmol/L (137-145); Total Protein 7.2 g/dL (6.3-8.2); Triglycerides 109 mg/dL (35-150)
[2021-12-07 12:11] LABS: TSH w/ Reflex to FT4 3.53 uIU/mL (0.47-4.68)
== END ==
PROVIDERS: Family Provider Family Medicine; PCP Nurse Practitioner Family; Referring Provider Nurse Practitioner Family; Visit Provider Nurse Practitioner Family
DX: Z00.00 Encounter for general adult medical examination without abnormal findings (principal); I10 Essential (primary) hypertension; R53.83 Other fatigue; Z13.6 Encounter for screening for cardiovascular disorders
CPT/HCPCS: 36415; 80053; 80061; 84443; 85027

== ENCOUNTER → 2022-06-15 12:39 | Outpatient (CLI) | payer OTHER, SELFPAY ==
--- NOTE | 2022-06-15 | DI.MG.S_ITS ---
BILATERAL DIGITAL SCREENING MAMMOGRAM 3D/2D WITH CAD: 06/15/2022 CLINICAL: Routine screening. Family history of breast cancer. Comparison is made to exams dated: 09/23/2020 mammogram, 05/09/2019 mammogram - [facility], and 01/18/2017 mammogram - [facility]. There are scattered areas of fibroglandular density in both breasts (category b / 25%-50% glandular tissue). Current study was also evaluated with a Computer Aided Detection (CAD) system. No significant masses, calcifications, or other findings are seen in either breast. There has been no significant interval change. IMPRESSION: NEGATIVE There is no mammographic evidence of malignancy. A 1 year screening mammogram is recommended. Based on the Tyrer Cuzick model (a risk assessment model) the patient's lifetime risk is 11.9% and her 10 year risk is 3.0%. According to the ACR, ACS, and NCCN guidelines, an annual breast MRI exam along with mammogram is recommended if the patient's lifetime risk is 20% or greater. This exam was interpreted at Station ID: [id number]. NOTE: For mammograms, a report in lay terms will be sent to the patient. Approximately 15% of breast malignancies will not be visualized mammographically. In the management of a palpable breast mass, a negative mammogram must not discourage biopsy of a clinically suspicious lesion. Electronically Signed By: Avel moses/benedicto:06/15/2022 17:24:36 letter sent: Normal Exam ACR BI-RADS Category 1: Negative 3341F
== END ==
LOC: MAMMO 12:41
PROVIDERS: Family Provider Family Medicine; PCP Internal Medicine; Referring Provider Internal Medicine; Visit Provider Internal Medicine
DX: Z12.31 Encounter for screening mammogram for malignant neoplasm of breast (principal); Z80.3 Family history of malignant neoplasm of breast
CPT/HCPCS: 77063; 77067

== ENCOUNTER → 2022-10-10 16:32 | Outpatient (CLI) | payer OTHER, SELFPAY ==
[2022-10-10 17:56] LABS: Hematocrit 38.4 % (36-46); Hemoglobin 13.3 g/dL (12.0-16.0); Mean Corpuscular HGB Conc 34.6 % (30-36); Mean Corpuscular Hemoglobin 31.9 PG (26-34); Mean Corpuscular Volume 92.3 fL (80-100); Platelet Count 315 X10^3/uL (150-400); Red Blood Cell Count 4.16 X10^6/uL (4.0-5.2); Red Cell Distribution Width 12.8 % (11.6-14.8); White Blood Cell Count 6.4 X10^3/uL (4.5-11.0)
[2022-10-10 18:13] LABS: Alanine Aminotransferase 26 IU/L (<35); Albumin 4.1 g/dL (3.5-5.0); Albumin Globulin Ratio 1.2 (1.0-2.8); Alkaline Phosphatase 62 U/L (38-126); Aspartate Aminotransferase 27 IU/L (14-36); BUN Creatinine Ratio 21.3 (6-22); Bilirubin Total 0.3 mg/dL (0.2-1.3); Blood Urea Nitrogen 17 mg/dL (7-17); Calcium 8.5 mg/dL (8.4-10.2); Carbon Dioxide 25 mmol/L (22-32); Chloride 106 mmol/L (98-107); Estimated Glomerular Filt Rate > 60 mL/min (>60); Globulin 3.4 g/dL (1.7-4.1); Glucose 111 mg/dL (70-100); HEMOLYSIS < 15 (0-50); Potassium 3.5 mmol/L (3.4-5.1); Sodium 140 mmol/L (137-145); Total Protein 7.5 g/dL (6.3-8.2)
[2022-10-10 18:38] LABS: TSH w/ Reflex to FT4 1.55 uIU/mL (0.47-4.68)
== END ==
PROVIDERS: Family Provider Family Medicine; PCP Internal Medicine; Referring Provider Internal Medicine; Visit Provider Internal Medicine
DX: E78.2 Mixed hyperlipidemia (principal); G47.30 Sleep apnea, unspecified; I10 Essential (primary) hypertension
CPT/HCPCS: 36415; 80053; 84443; 85027

== ENCOUNTER 2022-10-25 10:31 | Day surgery (SDC) | payer OTHER, SELFPAY ==
[2022-10-25 10:43] VITALS: BP 158/92; PULSE 84; RESP 16; TEMP 36.3; O2SAT 97; BMI 42.9
[2022-10-25] MEDS: LACTATED RINGERS 1,000 ML 200 ML IV (10:56)
--- NOTE | 2022-10-25 11:49 | PM.HP.1 ---
History of Present Illness History of Present Illness Date Patient Seen: 10/25/22 Time Patient Seen: 11:49 Chief complaint: Colonoscopy Narrative: The patient presents for colorectal screening. They have never had any previous examination for such. No personal or family history of colon cancer. On further history denies any recent gastrointestinal symptoms. No nausea, vomiting, abdominal pain, loss of appetite, unexplained weight loss, change in bowel habits, or blood per rectum. Patient History Medical History BMI 40.0-44.9, adult Chronic thoracic back pain Epigastric abdominal pain (07/2019) Essential hypertension (~2018) History of melanoma Hypertension Mixed hyperlipidemia Shoulder pain Sleep apnea (2014) Upper back pain on left side (05/2019) Surgical History History of bladder surgery Hx of section Hx of cholecystectomy (11/04/19) Family & Social History Family History Mother Liver failure Father Cancer Diabetes mellitus Hypertension Hyperlipidemia Brother Diabetes mellitus Hypertension Grandfather Diabetes mellitus Hypertension Grandmother Diabetes mellitus Hypertension Social History: household members family,children Tobacco & Substance use: Smoking Status Never smoker alcohol intake current alcohol intake frequency holiday/special occasion Substance Use Type does not use Meds Home Medications and Allergies Home Medications Medication Instructions Recorded Confirmed Type multivitamin with minerals (Daily 1 tab PO DAILY 12/07/21 10/10/22 History Multivitamin-Minerals tablet) duloxetine 20 mg capsule,delayed 40 mg PO DAILY #180 caps 06/23/22 10/10/22 Rx release gabapentin 300 mg capsule 600 mg PO BEDTIME NERVE PAIN #180 07/18/22 10/10/22 Rx caps trazodone 50 mg tablet 50 mg PO BEDTIME PRN insomnia #90 09/22/22 10/10/22 Rx tabs sodium,potassium,mag sulfates 17.5 See Rx Instructions PO .COMPLEX 10/10/22 Rx gram-3.13 gram-1.6 gram oral soln #354 mL (Suprep Bowel Prep Kit) Allergies Allergy/AdvReac Type Severity Reaction Status Date / Time No Known Drug Allergies Allergy Verified 10/25/22 10:43 Exam Vital Signs (past 8 hours): - 10/25/22 10:43 Temperature 97.4 F L Pulse Rate 84 Respiratory Rate 16 Blood Pressure 158/92 H Pulse Oximetry 97 Oxygen Delivery Method Room Air Oxygen Delivery Method Room Air Narrative Exam Narrative: Gen-Adult woman alert and oriented Assessment & Plan Assessment & Plan narrative: The patient requires colorectal screening and colonoscopy is recommended. Technical details were discussed. Risks, benefits, alternatives explained. Risks including but not limited to myocardial infarction, aspiration, bleeding, pain, missed lesion, incomplete examination, need for further radiographic studies, colonic perforation, and need for major abdominal surgery were discussed. All questions were answered to their satisfaction, and they are in agreement with this plan. Time Spent With Patient Critical Care time: I spent a total of [] minutes of critical care time on this patient's care today; this time is exclusive of procedural time.
--- NOTE | 2022-10-25 11:56 | PM.OP.COLON ---
Operative Date/Time/Diagnoses Date of procedure: 10/25/22 Time of procedure: 11:56 Pre-op diagnosis: Colorectal screening Post-op diagnosis: same Procedure & Clinicians Study performed: Colonoscopy Same procedure as scheduled: Yes Indications: Colorectal screening Surgeon: Hari Sahu Procedure Notes Procedure in detail: The history and physical was performed/updated and the patient is ASA class is 3. The procedure was discussed in detail with the patient. Potential risks complications including infection, bleeding, missed diagnosis, perforation, need for surgery, and were explained. Their questions were answered and informed consent was obtained. Patient was brought to the procedure room and placed standard monitoring equipment. The patient's vital signs were monitored continuously throughout the entire procedure. Prior to starting time-out was performed. The patient was placed in the left lateral recumbent position. Procedural sedation was administered by anesthesia. Examination began with a thorough inspection of the perianal area there was no evidence of fissures, fistulae, external hemorrhoids or cutaneous malignancy. The colonoscopy scope was then placed into the anal canal and was advanced to the cecum, which was identified by the ileocecal valve, the appendiceal orifice and the confluence of the taenia. The scope was then slowly withdrawn examining colon thoroughly in all directions, irrigating it of any residual stool. 1. No masses polyps or inflammation. Normal healthy colon. The patient tolerated the procedure well. They will be discharged once criteria are met. The prep was of good/excellent quality. The withdrawl time was 6 minutes. Specimen(s): none sent Impression: Normal colonoscopy Post-procedure Recommendations: Colonoscopy in 10 years and High fiber diet Disposition: same day surgery
[2022-10-25 12:21] VITALS: BP 131/81; PULSE 82; RESP 12; TEMP 36.1; O2SAT 97
[2022-10-25 12:27] VITALS: BP 129/83; PULSE 84; RESP 16; O2SAT 98
[2022-10-25 12:32] VITALS: BP 142/86; PULSE 80; RESP 13; TEMP 36.2; O2SAT 98
--- NOTE | 2022-10-25 12:53 | SUR.PHASEII ---
1245: Pt A&Ox4, denies any distress, abdomen slightly firm pt reports it's improving, VSS. Discharge instructions reviewed with pt and time allowed for questions. Pt left unit with all personal belongings via W/C to ER entrance where family will transport pt home.
== END 2022-10-25 12:50 | disposition home or self-care (01) ==
PROVIDERS: Family Provider Family Medicine; PCP Internal Medicine; Referring Provider Surgery; Visit Provider Surgery
PROC: 0DJD8ZZ Inspection of Lower Intestinal Tract, Via Natural or Artificial Opening Endoscopic (ICD-10-PCS; CPT 45378; principal; 2022-10-25 11:45)
DX: Z12.11 Encounter for screening for malignant neoplasm of colon (principal)
CPT/HCPCS: 45378; J2704; J3010

== ENCOUNTER → 2023-02-16 11:56 | Outpatient (CLI) | payer OTHER, SELFPAY ==
--- NOTE | 2023-02-16 11:58 | DI.MG.S_ITS ---
UNILATERAL RIGHT DIGITAL DIAGNOSTIC MAMMOGRAM 3D/2D: 02/16/2023 CLINICAL: Swollen Right lateral breast. Comparison is made to exams dated: 06/15/2022 mammogram, 09/23/2020 mammogram, and 05/09/2019 mammogram - [facility]. There are scattered areas of fibroglandular density in the right breast (category b / 25%-50% glandular tissue). No significant masses, calcifications, or other findings are seen in the breast. There has been no significant interval change. IMPRESSION: NEGATIVE There is no mammographic evidence of malignancy. Exam findings were conveyed to the patient. Patient is advised to monitor for significant change. Return to annual mammogram screening schedule is recommended. 06/16/2023 Based on the Tyrer Cuzick model (a risk assessment model) the patient's lifetime risk is 11.9% and her 10 year risk is 3.0%. According to the ACR, ACS, and NCCN guidelines, an annual breast MRI exam along with mammogram is recommended if the patient's lifetime risk is 20% or greater. This exam was interpreted at Station ID: [id number]. NOTE: For mammograms, a report in lay terms will be sent to the patient. Approximately 15% of breast malignancies will not be visualized mammographically. In the management of a palpable breast mass, a negative mammogram must not discourage biopsy of a clinically suspicious lesion. Electronically Signed By: Avel [place] M.D. [facility] [place]:02/17/2023 12:40:21 Entry: - 02/17/2023 12:40:21 letter sent: Normal Exam ACR BI-RADS Category 1: Negative 3341F
== END ==
LOC: MAMMO 11:57
PROVIDERS: Family Provider Family Medicine; PCP Internal Medicine; Referring Provider Student in an Organized Health Care Education/Training Program; Visit Provider Student in an Organized Health Care Education/Training Program
DX: R59.0 Localized enlarged lymph nodes (principal); N63.10 Unspecified lump in the right breast, unspecified quadrant
CPT/HCPCS: 77065; G0279

== ENCOUNTER 2023-03-22 19:33 | Emergency (ER) | payer OTHER, SELFPAY ==
[2023-03-22 19:41] VITALS: BP 144/80; PULSE 90; RESP 18; TEMP 36.9; O2SAT 98
[2023-03-22] MEDS: SODIUM CHLORIDE 0.9% 1,000 ML 1000 ML IV (20:26)
[2023-03-22] MEDS: ONDANSETRON 4 MG/2 ML INJ IV ×2 (20:27→21:56)
[2023-03-22 20:41] LABS: Lactate (Lactic Acid) 1.7 mmol/L (0.7-2.1)
[2023-03-22 20:43] VITALS: BP 131/78; PULSE 80; RESP 18; TEMP 36.6; O2SAT 97
[2023-03-22 20:44] LABS: Add Manual Diff / Slide Review NO; Alanine Aminotransferase 23 IU/L (<35); Albumin 3.9 g/dL (3.5-5.0); Albumin Globulin Ratio 1.3 (1.0-2.8); Alkaline Phosphatase 60 U/L (38-126); Aspartate Aminotransferase 29 IU/L (14-36); Basophils Absolute Auto 0 /uL (0-100); Basophils Percent Auto 0.4 % (0-2); Bilirubin Total 0.3 mg/dL (0.2-1.3); Blood Urea Nitrogen 15 mg/dL (7-17); Calcium 7.9 mg/dL (8.4-10.2); Carbon Dioxide 23 mmol/L (22-32); Chloride 106 mmol/L (98-107); Eosinophils Absolute Auto 200 /uL (0-450); Eosinophils Percent Auto 1.9 % (2-4); Estimated Glomerular Filt Rate > 60 mL/min (>60); Globulin 2.9 g/dL (1.7-4.1); Glucose 116 mg/dL (70-100); HEMOLYSIS 15 (0-50); Hematocrit 38.1 % (36-46); Hemoglobin 13.3 g/dL (12.0-16.0); Lipase 73 U/L (23-300); Lymphocytes Absolute Auto 2200 /uL (1100-4500); Lymphocytes Percent Auto 21.4 % (25-40); Mean Corpuscular HGB Conc 34.9 % (30-36); Mean Corpuscular Hemoglobin 31.6 PG (26-34); Mean Corpuscular Volume 90.6 fL (80-100); Monocytes Absolute Auto 500 /uL (0-900); Monocytes Percent Auto 4.6 % (3-14); Neutrophils Absolute Auto 7500 /uL (1500-7000); Neutrophils Percent Auto 71.7 % (50-75); Platelet Count 327 X10^3/uL (150-400); Potassium 3.4 mmol/L (3.4-5.1); Red Blood Cell Count 4.21 X10^6/uL (4.0-5.2); Red Cell Distribution Width 12.4 % (11.6-14.8); Sodium 138 mmol/L (137-145); Total Protein 6.8 g/dL (6.3-8.2); White Blood Cell Count 10.4 X10^3/uL (4.5-11.0)
--- NOTE | 2023-03-22 21:32 | DI.CT.S_ITS ---
PROCEDURE: CT ABDOMEN PELVIS W CON INDICATIONS: llq pain recent diverticulitis TECHNIQUE: After the administration of IV contrast, axial sections were acquired from the lung bases to the pubic symphysis. Coronal and sagittal reformats were performed. For radiation dose reduction, the following was used: automated exposure control, adjustment of mA and/or kV according to patient size. COMPARISON: None. FINDINGS: Image quality: Excellent. Lung bases: Unremarkable. Heart: Heart is normal in size. ABDOMEN: Liver: No mass lesion. Gallbladder: Surgically absent. Biliary ducts: No biliary ductal dilatation. Pancreas: Unremarkable. Spleen: Normal in size. Adrenal Glands: No adrenal nodules. Kidneys and Ureters: No hydronephrosis. Stomach and Bowel: Stomach, small bowel loops, and colon are normal in caliber and wall thickness. A few scattered air-fluid levels are demonstrated within the small bowel without abnormal dilatation or focal transition point to suggest obstruction. No pericecal inflammatory changes to suggest appendicitis. There is colonic diverticulosis without acute diverticulitis. Peritoneum: No abnormal intraperitoneal fluid. No free air. Ventral Wall: No hernia. Abdominal Nodes: No retroperitoneal or mesenteric adenopathy by size criteria. Vessels: Aorta and inferior vena cava are normal in size. PELVIS: Pelvic Organs: Unremarkable. Bladder: Unremarkable. Pelvic Nodes: No enlarged lymph nodes. Miscellaneous: No inguinal hernias are seen. Bones: Visualized osseous structures demonstrate no suspicious focal lesions. IMPRESSION: 1. Scattered air-fluid levels within the small bowel without abnormal dilatation or transition point to suggest obstruction. The findings may reflect a gastroenteritis. 2. Colonic diverticulosis without acute diverticulitis. Dictated by: Francois Hood M.D. on 03/22/2023 at 23:24 Approved by: Francois Hood M.D. on 03/22/2023 at 23:27
--- NOTE | 2023-03-22 21:33 | ED_ITS ---
HPI - Abdominal Pain General Chief Complaint: Abdominal Pain Stated Complaint: abd pain, recend dx of diverticulitis Time Seen by Provider: 03/22/23 19:57 Source: patient Mode of arrival: Ambulatory History of Present Illness HPI narrative: Patient is a 52-year-old female without significant past medical history diagnosed with diverticulitis by her PCP about a week ago. She is been on Augmentin for 6 days she feels like the pain gotten progressively worse. She was not having bowel movement she started having some bowel movements. She vomited today she feels nauseous. This generally not feeling well with increased pain. No prior history of diverticulitis she had a colonoscopy previously. Related Data Home Medications Medication Instructions Recorded Confirmed multivitamin with minerals (Daily 1 tab PO DAILY 12/07/21 03/15/23 Multivitamin-Minerals tablet) Previous Rx's Medication Instructions Recorded duloxetine 20 mg capsule,delayed 40 mg PO DAILY #180 caps 06/23/22 release gabapentin 300 mg capsule 600 mg PO BEDTIME NERVE PAIN #180 07/18/22 caps trazodone 50 mg tablet 50 mg PO BEDTIME PRN insomnia #90 09/22/22 tabs amoxicillin 875 mg-potassium 1 tab PO BID #20 tabs 03/15/23 clavulanate 125 mg tablet ciprofloxacin HCl 500 mg tablet 500 mg PO BID #14 tabs 03/22/23 (Cipro) hydrocodone 5 mg-acetaminophen 325 1 tab PO Q6H PRN pain #10 tabs 03/22/23 mg tablet metronidazole 500 mg tablet 500 mg PO Q8H 7 days #21 tabs 03/22/23 Allergies Allergy/AdvReac Type Severity Reaction Status Date / Time No Known Drug Allergies Allergy Verified 03/15/23 13:49 Review of Systems Review of Systems ROS Unobtainable: All systems reviewed & are unremarkable except as noted in HPI and below Patient History Medical History BMI 40.0-44.9, adult Chronic thoracic back pain Epigastric abdominal pain (07/2019) Essential hypertension (~2018) History of melanoma Hypertension Mixed hyperlipidemia Shoulder pain Sleep apnea (2014) Upper back pain on left side (05/2019) Surgical History History of bladder surgery Hx of section Hx of cholecystectomy (11/04/19) Family History Mother Liver failure Father Cancer Diabetes mellitus Hypertension Hyperlipidemia Brother Diabetes mellitus Hypertension Grandfather Diabetes mellitus Hypertension Grandmother Diabetes mellitus Hypertension Social History marital status: unknown details: single, one daughter household members: family and children occupational status: employed Smoking Status: Never smoker alcohol intake: current substance use type: does not use Smoking Status: Never smoker alcohol intake frequency: holidays/special occasions only Substance Use Type: does not use Exam Initial Vital Signs Initial Vital Signs: Vital Signs Temperature 98.4 F 03/22/23 19:41 Pulse Rate 90 03/22/23 19:41 Respiratory Rate 18 03/22/23 19:41 Blood Pressure 144/80 H 03/22/23 19:41 Pulse Oximetry 98 03/22/23 19:41 Oxygen Delivery Method Room Air 03/22/23 19:41 GENERAL: Alert pleasant well-appearing 52-year-old female and in no acute distress. HEENT: Head atraumatic,EOMI, pupils reactive, face symmetric, moist mucous membranes CARDIOVASCULAR: Regular rate and rhythm without murmurs, rubs or gallops. RESPIRATORY: Breath sounds equal bilaterally, no wheezes rales or rhonchi. ABDOMEN: Soft, tender left side no distention no guarding no rebound EXTREMITIES: Normal range of motion, no clubbing or edema. Neurovascularly intact NEUROLOGICAL: Alert and oriented x4.Normal gait and speech. SKIN: Warm, dry, no laceration, no petechiae, no rashes or lesions. Course Orders Ordered: ED Orders 03/22/23 20:15 Complete Blood Count AUTO DIFF Stat Comprehensive Metabolic Panel Stat Lactate (Lactic Acid) Stat Lipase Stat 03/22/23 21:32 CT abdomen pelvis w con Stat 03/22/23 22:12 Urine Culture Stat Urine Microscopic Stat Discontinued Medications Hydrocodone Bitart/Acetaminophen (Hydrocodone/Acet 5/325 Prepack) 1 bottle MISC SEEINSTR ONE Stop: 03/22/23 23:53 Last Admin: 03/23/23 00:04 Dose: Not Given Documented By: VENTURA Ciprofloxacin (Ciprofloxacin 250 Mg Tablet) 500 mg PO NOW ONE Stop: 03/22/23 23:53 Last Admin: 03/23/23 00:12 Dose: 500 mg Documented By: VENTURA Sodium Chloride (Normal Saline 0.9%) 1,000 mls @ 1,000 mls/hr IV BOLUS ONE Stop: 03/22/23 20:52 Last Infusion: 03/22/23 23:33 Dose: 0 mls/hr Documented By: Admin: 03/22/23 20:26 Dose: 1,000 mls/hr Documented By: VENTURA Metronidazole (Metronidazole 500 Mg Tablet) 500 mg PO NOW ONE Stop: 03/22/23 23:53 Last Admin: 03/23/23 00:11 Dose: 500 mg Documented By: VENTURA Morphine Sulfate (Morphine 4 Mg/Ml Inj) 4 mg IV NOW ONE Stop: 03/22/23 21:33 Last Admin: 03/22/23 21:55 Dose: 4 mg Documented By: VENTURA Morphine Sulfate (Morphine 4 Mg/Ml Inj) 4 mg IV NOW ONE Stop: 03/22/23 23:53 Last Admin: 03/23/23 00:11 Dose: 4 mg Documented By: VENTURA Ondansetron HCl (Ondansetron 4 Mg Odt) 4 mg PO NOW PRN PRN Reason: Nausea And Vomiting Ondansetron HCl (Ondansetron 4 Mg/2 Ml Inj) 4 mg IV NOW PRN PRN Reason: Nausea And Vomiting Last Admin: 03/22/23 20:27 Dose: 4 mg Documented By: VENTURA Ondansetron HCl (Ondansetron 4 Mg/2 Ml Inj) 4 mg IV NOW ONE Stop: 03/22/23 21:33 Last Admin: 03/22/23 21:56 Dose: 4 mg Documented By: VENTURA Oxycodone/Acetaminophen (Oxycodone/Apap 5/325 Prepack) 1 bottle MISC SEEINSTR ONE Stop: 03/23/23 00:05 Last Admin: 03/23/23 00:11 Dose: 1 bottle Documented By: VENTURA Vital Signs Vital signs: Vital Signs - 8 hr 03/22/23 22:36 03/23/23 00:01 03/23/23 00:27 Temperature 97.7 F 98.3 F Pulse Rate 84 78 78 Respiratory Rate 16 24 18 Blood Pressure 132/64 154/65 H 147/75 H Pulse Oximetry 95 96 Oxygen Delivery Method Room Air Room Air Room Air MDM - Abdominal Pain Lab Data 03/22/23 20:15 03/22/23 20:15 Labs: Lab Results 03/22/23 03/22/23 03/22/23 Range/Units 20:15 20:15 20:15 WBC 10.4 (4.5-11.0) X10^3/uL RBC 4.21 (4.0-5.2) X10^6/uL Hgb 13.3 (12.0-16.0) g/dL Hct 38.1 (36-46) % MCV 90.6 (80-100) fL MCH 31.6 (26-34) PG MCHC 34.9 (30-36) % RDW 12.4 (11.6-14.8) % Plt Count 327 (150-400) X10^3/uL Neut % (Auto) 71.7 (50-75) % Lymph % (Auto) 21.4 L (25-40) % [place] % (Auto) 4.6 (3-14) % Eos % (Auto) 1.9 L (2-4) % Baso % (Auto) 0.4 (0-2) % Neut # (Auto) 7500 H (4513-1027) /uL Lymph # (Auto) 2200 (6823-2471) /uL [place] # (Auto) 500 (0-900) /uL Eos # (Auto) 200 (0-450) /uL Baso # (Auto) 0 (0-100) /uL Sodium 138 (137-145) mmol/L Potassium 3.4 (3.4-5.1) mmol/L Chloride 106 (98-107) mmol/L Carbon Dioxide 23 (22-32) mmol/L BUN 15 (7-17) mg/dL Creatinine 0.79 (0.52-1.04) mg/dL Estimated GFR > 60 (>60) mL/min BUN/Creatinine Ratio 19.0 (6-22) Glucose 116 H (70-100) mg/dL Lactate 1.7 (0.7-2.1) mmol/L Calcium 7.9 L (8.4-10.2) mg/dL Total Bilirubin 0.3 (0.2-1.3) mg/dL AST 29 (14-36) IU/L ALT 23 (<35) IU/L Alkaline Phosphatase 60 (38-126) U/L Total Protein 6.8 (6.3-8.2) g/dL Albumin 3.9 (3.5-5.0) g/dL Globulin 2.9 (1.7-4.1) g/dL Albumin/Globulin Ratio 1.3 (1.0-2.8) Lipase 73 (23-300) U/L Urine RBC (0-5/HPF) Urine WBC (0-5/HPF) Ur Squamous Epith Cells (0-5/HPF) Urine Bacteria (None) Ur Culture Indicated? 03/22/23 Range/Units 22:12 WBC (4.5-11.0) X10^3/uL RBC (4.0-5.2) X10^6/uL Hgb (12.0-16.0) g/dL Hct (36-46) % MCV (80-100) fL MCH (26-34) PG MCHC (30-36) % RDW (11.6-14.8) % Plt Count (150-400) X10^3/uL Neut % (Auto) (50-75) % Lymph % (Auto) (25-40) % [place] % (Auto) (3-14) % Eos % (Auto) (2-4) % Baso % (Auto) (0-2) % Neut # (Auto) (6649-8200) /uL Lymph # (Auto) (2182-9015) /uL [place] # (Auto) (0-900) /uL Eos # (Auto) (0-450) /uL Baso # (Auto) (0-100) /uL Sodium (137-145) mmol/L Potassium (3.4-5.1) mmol/L Chloride (98-107) mmol/L Carbon Dioxide (22-32) mmol/L BUN (7-17) mg/dL Creatinine (0.52-1.04) mg/dL Estimated GFR (>60) mL/min BUN/Creatinine Ratio (6-22) Glucose (70-100) mg/dL Lactate (0.7-2.1) mmol/L Calcium (8.4-10.2) mg/dL Total Bilirubin (0.2-1.3) mg/dL AST (14-36) IU/L ALT (<35) IU/L Alkaline Phosphatase (38-126) U/L Total Protein (6.3-8.2) g/dL Albumin (3.5-5.0) g/dL Globulin (1.7-4.1) g/dL Albumin/Globulin Ratio (1.0-2.8) Lipase (23-300) U/L Urine RBC 10-30/hpf H (0-5/HPF) Urine WBC 5-10/hpf H (0-5/HPF) Ur Squamous Epith Cells 0-1 /hpf D (0-5/HPF) Urine Bacteria Occasional (0-1) (None) Ur Culture Indicated? Specimen cultured Point of care testing: Urine Dip Bedside Urine Glucose Negative Bedside Urine Bilirubin - Negative Bedside Urine Ketone - Negative Urine Specific [place] 1.025 Bedside Urine Occult Blood +++ Bedside Urine pH 6.0 Bedside Urine Protein +/- 15 Bedside Urine Nitrite - Negative Bedside Urine Leukocytes +/- [address] scan - abdomen/pelvis: Radiologist's Impression: PROCEDURE:? CT ABDOMEN PELVIS W CON ? INDICATIONS:? llq pain recent diverticulitis ? TECHNIQUE:? After the administration of IV contrast, axial sections were acquired from the lung bases to the pubic symphysis.? Coronal and sagittal reformats were performed.? For radiation dose reduction, the following was used:? automated exposure control, adjustment of mA and/or kV according to patient size. ? COMPARISON:? None. ? FINDINGS:? Image quality:? Excellent.? ? Lung bases:? Unremarkable.? ? Heart:? Heart is normal in size. ? ? ABDOMEN: Liver:? No mass lesion. Gallbladder:? Surgically absent. Biliary ducts:? No biliary ductal dilatation.? ? Pancreas:? Unremarkable.? ? Spleen:? Normal in size.? ? Adrenal Glands:? No adrenal nodules.? ? Kidneys and Ureters:? No hydronephrosis.? ? ? Stomach and Bowel:? Stomach, small bowel loops, and colon are normal in caliber and wall thickness.? A few scattered air-fluid levels are demonstrated within the small bowel without abnormal dilatation or focal transition point to suggest obstruction.? No pericecal inflammatory changes to suggest appendicitis.? There is colonic diverticulosis without acute diverticulitis. Peritoneum:? No abnormal intraperitoneal fluid.? No free air.? ? Ventral Wall: ? No hernia.? Abdominal Nodes:? No retroperitoneal or mesenteric adenopathy by size criteria.? Vessels:? Aorta and inferior vena cava are normal in size.? ? PELVIS: Pelvic Organs:? Unremarkable.? ? Bladder:? Unremarkable.? ? Pelvic Nodes: No enlarged lymph nodes.? Miscellaneous: No inguinal hernias are seen. ? ? ? Bones:? Visualized osseous structures demonstrate no suspicious focal lesions. ? IMPRESSION:? ? 1. Scattered air-fluid levels within the small bowel without abnormal dilatation or transition point to suggest obstruction.? The findings may reflect a gastroenteritis. ? 2. Colonic diverticulosis without acute diverticulitis.? ? ? Dictated by: Francois Hood M.D. on 03/22/2023 at 23:24 ? ? Approved by: Francois Hood M.D. on 03/22/2023 at 23:27 MDM Narrative Medical decision making narrative: Patient 52-year-old female with clinical diagnosis of diverticulitis presenting today with increasing pain and vomiting x1. Blood work is overall reassuring no leukocytosis she is afebrile. She was in quite a bit of pain and tender on the left side. She is given morphine and Zofran which has helped. CT does not show acute diverticulitis but does show diverticulosis but no evidence of obstruction perforation or abscess. At this time I think reasonable to change up her antibiotics due to increased pain. No need for admission at this time. She is also given morphine for pain control. Discharge Plan Departure Patient Disposition: Home Clinical Impression: Diverticulitis Instructions: DI for Diverticulitis Activity Restrictions/Additional Instructions: *You have been diagnosed with possible ongoing diverticulitis *What to do: At this time he reasonable to change appear antibiotics see if you have any improvement. CT does not show any concerning findings at this time *Continue to take medications as directed Stop taking Augmentin Cipro 500 mg twice a day for 7 days Flagyl 500 mg 3 times a day for 7 days [place] 1 tablet every 6 hours if needed for severe pain *Follow up with your primary care provider in 2-3 days or call [phone] *Return to ER if you should have increasing pain vomiting fever or any new, worsening or concerning symptoms CONTROLLED SUBSTANCE DISCHARGE (Narcotoic/benzodiazepine/Flexeril/Phenergan) 1. You have been prescribed narcotic medications, it does have acetaminophen/Tylenol/paracetamol in it, DO NOT TAKE MORE THAN 4,00mg in 24 hours of Tylenol. TRAMADOL DOES NOT CONTAIN TYLENOL 2. Please understand that we cannot provide further refills of narcotics, benzodiazepines or controlled substances through the ED and her pain management will need to be through your provider. 3. While on these medications you cannot drive or operate heavy machinery. 4. You cannot sign legal documents or perform any duties such as this. 5. As long as you're taking opiate pain medications he should also be taking a stool softener such as Colace, Dulcolax, MiraLAX or prune juice, to help avoid constipation. Prescriptions: New metronidazole 500 mg tablet 500 mg PO Q8H 7 Days Qty: 21 0RF ciprofloxacin HCl [Cipro] 500 mg tablet 500 mg PO BID Qty: 14 0RF hydrocodone-acetaminophen 5-325 mg tablet 1 tab PO Q6H PRN (Reason: pain) Qty: 10 0RF No Action gabapentin 300 mg capsule 600 mg PO BEDTIME Qty: 180 3RF trazodone 50 mg tablet 50 mg PO BEDTIME PRN (Reason: insomnia) Qty: 90 2RF Daily Multivitamin-Minerals Tablet 1 tab PO DAILY duloxetine 20 mg capsule,delayed release(DR/EC) 40 mg PO DAILY Qty: 180 3RF amoxicillin-pot clavulanate 875-125 mg tablet 1 tab PO BID Qty: 20 1RF Referrals: Dima Cook MD [Primary Care Provider] - Stand Alone Forms: Patient Portal/API
[2023-03-22] MEDS: MORPHINE 4 MG/ML INJ IV (21:55)
[2023-03-22 22:29] LABS: Bacteria Urine Occasional (0-1); Culture Indicated Urine Specimen Cultured; RBC Urine 10-30/HPF (0-5/HPF); Squamous Epithelial Cell Urine 0-1 /HPF (0-5/HPF); WBC Urine 5-10/HPF (0-5/HPF)
[2023-03-22 22:36] VITALS: BP 132/64; PULSE 84; RESP 16; TEMP 36.5
[2023-03-23 00:01] VITALS: BP 154/65; PULSE 78; RESP 24; TEMP 36.8; O2SAT 95
[2023-03-23] MEDS: MORPHINE 4 MG/ML INJ IV (00:11)
[2023-03-23] MEDS: OXYCODONE/APAP 5/325 PREPACK 1 BOTTLE MISC (00:11)
[2023-03-23] MEDS: metroNIDAZOLE 500 MG TABLET PO (00:11)
[2023-03-23] MEDS: CIPROFLOXACIN 250 MG TABLET 500 MG PO (00:12)
[2023-03-23 00:27] VITALS: BP 147/75; PULSE 78; RESP 18; O2SAT 96
== END 2023-03-23 00:30 | disposition home or self-care (01) ==
PROVIDERS: Emergency Provider Emergency Medicine; Family Provider Family Medicine; PCP Internal Medicine
DX: K57.92 Diverticulitis of intestine, part unspecified, without perforation or abscess without bleeding (principal); R11.2 Nausea with vomiting, unspecified; R10.9 Unspecified abdominal pain
CPT/HCPCS: 36415; 74177; 80053; 81003; 81015; 83605; 83690; 85025; 87086; 93005; 93010; 96361; 96374; 96375; 96376; 99284; J2270; J2405; Q9967

== ENCOUNTER 2023-08-03 20:06 | Emergency (ER) | payer OTHER, SELFPAY ==
[2023-08-03 20:10] VITALS: BP 159/88; PULSE 97; RESP 20; TEMP 36.6; O2SAT 96; BMI 43.7
--- NOTE | 2023-08-03 20:38 | ED_ITS ---
HPI - Back Pain/Injury General Chief Complaint: Back Pain/Injury Stated Complaint: back pain Time Seen by Provider: 08/03/23 20:29 Source: patient History of Present Illness HPI Narrative: Two weeks ago she began to have left-sided back pain of insidious onset. It was relatively mild for the 1st 7 days. Starting 4 days ago it began to get more and more severe. There was no injury associated with the onset of the pain. She has not had fever nor has she had chest symptoms though she says a deep breath sometimes makes it feel a bit worse. The pain does not radiate into her legs or arms. She is not had pain like this previously. No nausea or vomiting. No fever. No dysuria urgency or frequency. No previous surgeries in this area. She has a remote prior cholecystectomy. She recently started taking Ozempic. She also recently was diagnosed a few months ago with diverticulitis. She says this pain is quite a bit different than that. She had a bit of induration to the upper abdomen last week but that has subsequently resolved. She saw her doctor 2 days ago and was prescribed cyclobenzaprine, hydrocodone and ibuprofen and these treatments have not provided any relief and in fact her pain is much worse now than it was 2 days ago. Related Data Home Medications Medication Instructions Recorded Confirmed multivitamin with minerals (Daily 1 tab PO DAILY 12/07/21 08/01/23 Multivitamin-Minerals tablet) Previous Rx's Medication Instructions Recorded duloxetine 20 mg capsule,delayed 40 mg (2 x 20 mg) PO DAILY #180 06/23/22 release caps gabapentin 300 mg capsule 600 mg (2 x 300 mg) PO BEDTIME 06/12/23 NERVE PAIN #180 caps trazodone 50 mg tablet 50 mg PO BEDTIME PRN insomnia #90 06/12/23 tabs amlodipine 5 mg tablet 5 mg PO DAILY HTN #90 tabs 06/23/23 cyclobenzaprine 10 mg tablet 10 mg PO TID PRN muscle spasm #30 08/01/23 tabs hydrocodone 5 mg-acetaminophen 325 See Rx Instructions PO Q4H PRN 08/01/23 mg tablet pain #15 tabs cephalexin 500 mg capsule 500 mg PO QID #40 caps 08/03/23 morphine 15 mg immediate release 15 mg PO Q4H PRN pain #14 tabs 08/03/23 tablet naloxone 4 mg/actuation nasal 4 mg intranasal Q2M PRN opioid 08/03/23 spray (Narcan) overdose #2 ea Allergies Allergy/AdvReac Type Severity Reaction Status Date / Time No Known Drug Allergies Allergy Verified 08/01/23 10:51 Patient History Medical History Essential hypertension Slow transit constipation History of melanoma Chronic thoracic back pain Mixed hyperlipidemia Sleep apnea (2014) Essential hypertension () Epigastric abdominal pain (07/2019) Upper back pain on left side (05/2019) BMI 40.0-44.9, adult Shoulder pain Hypertension Surgical History Hx of cholecystectomy (11/04/19) History of bladder surgery Hx of section Family History Mother Liver failure Father Cancer Diabetes mellitus Hypertension Hyperlipidemia Brother Diabetes mellitus Hypertension Grandfather Diabetes mellitus Hypertension Grandmother Diabetes mellitus Hypertension Social History marital status: unknown details: single, one daughter household members: family and children occupational status: employed Smoking Status: Never smoker alcohol intake: current substance use type: does not use Smoking Status: Never smoker alcohol intake frequency: holidays/special occasions only Substance Use Type: does not use Exam Narrative Exam Narrative: GENERAL: Alert, cooperative and in no distress. HEAD: Atraumatic. Normocephalic. EYES: Sclera are clear without icterus. Extraocular movements are full. ENT: No rhinorrhea. Oropharynx is moist. Mouth exam is benign. NECK: Supple. Full range of motion. CARDIOVASCULAR: Normal rate and rhythm without murmur gallop or rub. RESPIRATORY: Clear to auscultation. Breath sounds equal bilaterally. No wheezes, rales, or rhonchi. GASTROINTESTINAL: Abdomen soft, non-tender, nondistended. EXTREMITIES: No edema, full range of motion. No obvious trauma. BACK: Normal inspection, no CVA tenderness. Mild tenderness to the left side of her back above the area of the costovertebral angle perhaps some muscle spasm. No midline tenderness. There is no skin abnormality to the back. Straight leg testing is negative bilaterally. NEURO: Nonfocal examination, normal speech, normal gait. SKIN: No rash or erythema of visible areas PSYCH: Normally oriented. Normal range of affect. Appropriate behavior Initial Vital Signs Initial Vital Signs: Vital Signs Temperature 97.9 F 08/03/23 20:10 Pulse Rate 97 H 08/03/23 20:10 Respiratory Rate 20 08/03/23 20:10 Blood Pressure 159/88 H 08/03/23 20:10 Pulse Oximetry 96 08/03/23 20:10 Oxygen Delivery Method Room Air 08/03/23 20:10 Course Course Course Narrative: Nonspecific back pain. She has normal neurologic function with a normal gait. Normal dorsiflexion and plantar flexion at the ankles. She has no hard neurologic findings. She denies incontinence of bowel or bladder. I suspect musculoskeletal pain but because of the severity and unusual location will check CBC CMP lipase and urinalysis and treat her symptomatically for now. Orders Ordered: ED Orders 08/03/23 20:28 Ictotest Urine Stat Urine Culture Stat Urine Microscopic Stat 08/03/23 20:38 UA dip and micro [Urinalysis and Microscopic] Stat 08/03/23 20:50 CBC Auto Diff [Complete Blood Count AUTO DIFF] Stat CMP [Comprehensive Metabolic Panel] Stat Lipase Stat Discontinued Medications Acetaminophen (Acetaminophen 325 Mg Tablet) 975 mg PO NOW ONE Stop: 08/03/23 20:38 Last Admin: 08/03/23 20:56 Dose: 975 mg Documented By: FREDDIE Cephalexin HCl (Cephalexin 250 Mg Capsule) 500 mg PO NOW ONE Stop: 08/03/23 21:42 Last Admin: 08/03/23 21:44 Dose: 500 mg Ibuprofen (Ibuprofen 400 Mg Tablet) 800 mg PO NOW ONE Stop: 08/03/23 20:38 Last Admin: 08/03/23 20:56 Dose: 800 mg Documented By: FREDDIE Oxycodone HCl (Oxycodone Ir 5 Mg Tablet) 10 mg PO NOW ONE Stop: 08/03/23 20:38 Last Admin: 08/03/23 20:57 Dose: 10 mg Documented By: FREDDIE Vital Signs Vital signs: Vital Signs - 8 hr 08/03/23 20:10 Temperature 97.9 F Pulse Rate 97 H Respiratory Rate 20 Blood Pressure 159/88 H Pulse Oximetry 96 Oxygen Delivery Method Room Air MDM - Back Pain/Injury Lab Data 08/03/23 20:50 08/03/23 20:50 Labs: Lab Results 08/03/23 08/03/23 Range/Units 20:28 20:50 WBC 5.4 (4.5-11.0) X10^3/uL RBC 4.43 (4.0-5.2) X10^6/uL Hgb 14.0 (12.0-16.0) g/dL Hct 40.0 (36-46) % MCV 90.2 (80-100) fL MCH 31.6 (26-34) PG MCHC 35.1 (30-36) % RDW 12.9 (11.6-14.8) % Plt Count 318 (150-400) X10^3/uL Neut % (Auto) 49.9 L (50-75) % Lymph % (Auto) 38.9 (25-40) % [place] % (Auto) 5.8 (3-14) % Eos % (Auto) 4.1 H (2-4) % Baso % (Auto) 1.3 (0-2) % Neut # (Auto) 2700 (9323-6173) /uL Lymph # (Auto) 2100 (0342-0096) /uL [place] # (Auto) 300 (0-900) /uL Eos # (Auto) 200 (0-450) /uL Baso # (Auto) 100 (0-100) /uL Sodium 139 (137-145) mmol/L Potassium 3.6 (3.4-5.1) mmol/L Chloride 106 (98-107) mmol/L Carbon Dioxide 25 (22-32) mmol/L BUN 16 (7-17) mg/dL Creatinine 0.75 (0.52-1.04) mg/dL Estimated GFR > 60 (>60) mL/min BUN/Creatinine Ratio 21.3 (6-22) Glucose 117 H (70-100) mg/dL Calcium 8.7 (8.4-10.2) mg/dL Total Bilirubin 0.5 (0.2-1.3) mg/dL AST 25 (14-36) IU/L ALT 26 (<35) IU/L Alkaline Phosphatase 39 (38-126) U/L Total Protein 7.3 (6.3-8.2) g/dL Albumin 4.2 (3.5-5.0) g/dL Globulin 3.1 (1.7-4.1) g/dL Albumin/Globulin Ratio 1.4 (1.0-2.8) Lipase 95 (23-300) U/L Ur Bilirubin Confirm Negative (Negative) Urine RBC None seen (0-5/HPF) Urine WBC 30-100/hpf H (0-5/HPF) Ur Squamous Epith Cells 10-30 /hpf H D (0-5/HPF) Urine Bacteria Many (>30) H (None) Urine Mucus 2+ H (Negative) Ur Culture Indicated? Specimen cultured Urine Dip Bedside Urine Glucose Negative Bedside Urine Bilirubin + 1 Bedside Urine Ketone - Negative Urine Specific [place] 1.030 Bedside Urine Occult Blood - Negative Bedside Urine pH 6.0 Bedside Urine Protein +/- 15 Bedside Urine Urobilinogen - Negative Bedside Urine Nitrite - Negative Bedside Urine Leukocytes ++ 125 Esterase Discharge Plan Departure Patient Disposition: Home Clinical Impression: Back pain, Pyelonephritis Instructions: DI for Kidney Infection, DI for Low Back Pain Activity Restrictions/Additional Instructions: Thank you for trusting us with your care today. It is not completely clear what the problem is here today. Given the totality of the information that I have including a physical examination I suspect kidney infection though I am not convinced this is accurate. I think treating him for this makes sense at this point. Cephalexin 500 mg 4 times a day for 7 days. For pain management and recommend Tylenol 1000 mg taken together with ibuprofen 600 mg every 6 hours. One morphine tablet every 4 hours as needed for more severe pain. Limit the use of the morphine. Do not use the morphine any longer than necessary. Follow up at the clinic in a few days if symptoms are not improving. Follow-up right away in the emergency department for high fever, repeated vomiting, severe symptoms getting worse, loss of function of bowels or bladder or lower extremity weakness. Prescriptions: New cephalexin 500 mg capsule 500 mg PO QID Qty: 40 0RF morphine 15 mg tablet 15 mg PO Q4H PRN (Reason: pain) Qty: 14 0RF naloxone [Narcan] 4 mg/actuation spray,non-aerosol 4 mg intranasal Q2M PRN (Reason: opioid overdose) Qty: 2 0RF Rx Instructions: spray 1 dose into ONE nostril; alternate nostrils w each dose until help arrives No Action gabapentin 300 mg capsule 600 mg PO BEDTIME Qty: 180 3RF trazodone 50 mg tablet 50 mg PO BEDTIME PRN (Reason: insomnia) Qty: 90 3RF amlodipine 5 mg tablet 5 mg PO DAILY Qty: 90 3RF Daily Multivitamin-Minerals Tablet 1 tab PO DAILY cyclobenzaprine 10 mg tablet 10 mg PO TID PRN (Reason: muscle spasm) Qty: 30 1RF hydrocodone-acetaminophen 5-325 mg tablet See Rx Instructions PO Q4H PRN (Reason: pain) Qty: 15 0RF Rx Instructions: 1-2 tabs PO Q4H PRN; duloxetine 20 mg capsule,delayed release(DR/EC) 40 mg PO DAILY Qty: 180 3RF Referrals: Dima Cook MD [Primary Care Provider] - Stand Alone Forms: Patient Portal/API
[2023-08-03 20:42] LABS: Ictotest Urine Negative (Negative)
[2023-08-03 20:49] LABS: Bacteria Urine Many (>30); RBC Urine None Seen (0-5/HPF); Squamous Epithelial Cell Urine 10-30 /HPF (0-5/HPF); WBC Urine 30-100/HPF (0-5/HPF)
[2023-08-03 20:50] LABS: Culture Indicated Urine Specimen Cultured; Mucus Urine 2+ (Negative)
[2023-08-03] MEDS: IBUPROFEN 400 MG TABLET 800 MG PO (20:56)
[2023-08-03] MEDS: ACETAMINOPHEN 325 MG TABLET 975 MG PO (20:56)
[2023-08-03] MEDS: OXYCODONE IR 5 MG TABLET 10 MG PO (20:57)
[2023-08-03 20:59] LABS: Add Manual Diff / Slide Review NO; Basophils Absolute Auto 100 /uL (0-100); Basophils Percent Auto 1.3 % (0-2); Eosinophils Absolute Auto 200 /uL (0-450); Eosinophils Percent Auto 4.1 % (2-4); Lymphocytes Absolute Auto 2100 /uL (1100-4500); Lymphocytes Percent Auto 38.9 % (25-40); Mean Corpuscular HGB Conc 35.1 % (30-36); Mean Corpuscular Hemoglobin 31.6 PG (26-34); Mean Corpuscular Volume 90.2 fL (80-100); Monocytes Absolute Auto 300 /uL (0-900); Monocytes Percent Auto 5.8 % (3-14); Neutrophils Absolute Auto 2700 /uL (1500-7000); Neutrophils Percent Auto 49.9 % (50-75); Platelet Count 318 X10^3/uL (150-400); Red Blood Cell Count 4.43 X10^6/uL (4.0-5.2); Red Cell Distribution Width 12.9 % (11.6-14.8); White Blood Cell Count 5.4 X10^3/uL (4.5-11.0)
[2023-08-03 21:10] LABS: Alanine Aminotransferase 26 IU/L (<35); Albumin 4.2 g/dL (3.5-5.0); Albumin Globulin Ratio 1.4 (1.0-2.8); Alkaline Phosphatase 39 U/L (38-126); Aspartate Aminotransferase 25 IU/L (14-36); BUN Creatinine Ratio 21.3 (6-22); Bilirubin Total 0.5 mg/dL (0.2-1.3); Blood Urea Nitrogen 16 mg/dL (7-17); Calcium 8.7 mg/dL (8.4-10.2); Carbon Dioxide 25 mmol/L (22-32); Chloride 106 mmol/L (98-107); Estimated Glomerular Filt Rate > 60 mL/min (>60); Globulin 3.1 g/dL (1.7-4.1); Glucose 117 mg/dL (70-100); HEMOLYSIS < 15 (0-50); Lipase 95 U/L (23-300); Potassium 3.6 mmol/L (3.4-5.1); Sodium 139 mmol/L (137-145); Total Protein 7.3 g/dL (6.3-8.2)
[2023-08-03] MEDS: cephALEXin 250 MG CAPSULE 500 MG PO (21:44)
[2023-08-03 21:54] VITALS: BP 139/82; PULSE 90; RESP 18; O2SAT 97
== END 2023-08-03 22:02 | disposition home or self-care (01) ==
PROVIDERS: Emergency Provider Family Medicine Addiction Medicine; Family Provider Family Medicine; PCP Internal Medicine
DX: N11.1 Chronic obstructive pyelonephritis (principal); M54.9 Dorsalgia, unspecified
CPT/HCPCS: 80053; 81003; 81015; 83690; 85025; 87086; 99283; 99284

== ENCOUNTER 2023-10-19 12:46 | Emergency (ER) | payer OTHER, SELFPAY ==
[2023-10-19] VITALS (14 sets, daily range): BP systolic 144–164; BP diastolic 69–94; PULSE 84–96; RESP 16; TEMP 37.1; O2SAT 94–97; BMI 39.4
--- NOTE | 2023-10-19 13:04 | DI.CT.S_ITS ---
PROCEDURE: CT ABDOMEN PELVIS W CON INDICATIONS: eval for SBO TECHNIQUE: After the administration of intravenous contrast, axial sections acquired from the lung bases to the pubic symphysis. Coronal and sagittal reformats were performed. For radiation dose reduction, the following was used: automated exposure control, adjustment of mA and/or kV according to patient size. COMPARISON: [facility], CT, CT ABDOMEN PELVIS W CON, 03/22/2023, 21:43., CT abdomen and pelvis with contrast 10/14/2023 from [facility] FINDINGS: Image quality: Diagnostic. Lower Chest: No significant findings. ABDOMEN: Liver: No solid mass. Gallbladder: Surgically absent bone Biliary ducts: No biliary dilation. Pancreas: No ductal dilation. Spleen: Size is within normal limits. Adrenal Glands: No adrenal nodules. Kidneys and Ureters: No hydronephrosis. No solid mass. No complex renal cystic lesion which requires follow up. Stomach and Bowel: There is no evidence of small-bowel obstruction. There is moderately large fecal load. Colon is prominent period there are nondilated fluid-filled loops of small bowel. Question constipation. Question colonic ileus. There is mild sigmoid diverticulosis without evidence of diverticulitis. Peritoneum: No abnormal intraperitoneal fluid. No free air. Ventral Wall: No significant ventral hernia. Abdominal Nodes: No retroperitoneal or mesenteric adenopathy by size criteria. Vessels: Aorta and inferior vena cava are normal in size. PELVIS: Pelvic Organs: Unremarkable. Bladder: No bladder wall thickening, accounting for underdistention. Pelvic Nodes: No enlarged lymph nodes. Miscellaneous: No inguinal hernias are seen. Bones: No aggressive osseous abnormality. IMPRESSION: 1. No evidence of small-bowel obstruction. 2. Question constipation. Question colonic ileus. 3. Very mild diverticulosis without evidence of diverticulitis. Exclude 4 period remote cholecystectomy. Dictated by: Quintin Baker M.D. on 10/19/2023 at 13:54 Approved by: Quintin Baker M.D. on 10/19/2023 at 14:17
[2023-10-19 13:07] LABS: Add Manual Diff / Slide Review NO; Basophils Absolute Auto 100 /uL (0-100); Basophils Percent Auto 0.8 % (0-2); Eosinophils Absolute Auto 400 /uL (0-450); Eosinophils Percent Auto 5.7 % (2-4); Hematocrit 43.2 % (36-46); Lymphocytes Absolute Auto 1600 /uL (1100-4500); Lymphocytes Percent Auto 22.8 % (25-40); Mean Corpuscular HGB Conc 34.6 % (30-36); Mean Corpuscular Hemoglobin 31.3 PG (26-34); Mean Corpuscular Volume 90.2 fL (80-100); Monocytes Absolute Auto 400 /uL (0-900); Monocytes Percent Auto 6.2 % (3-14); Neutrophils Absolute Auto 4500 /uL (1500-7000); Neutrophils Percent Auto 64.5 % (50-75); Platelet Count 308 X10^3/uL (150-400); Red Blood Cell Count 4.79 X10^6/uL (4.0-5.2); Red Cell Distribution Width 12.7 % (11.6-14.8)
[2023-10-19 13:12] LABS: INR 1.1 (0.9-1.3); Prothrombin Time 12.2 SECONDS (9.4-12.5)
[2023-10-19 13:17] LABS: Alanine Aminotransferase 43 IU/L (<35); Albumin 4.3 g/dL (3.5-5.0); Albumin Globulin Ratio 1.3 (1.0-2.8); Alkaline Phosphatase 59 U/L (38-126); Aspartate Aminotransferase 38 IU/L (14-36); BUN Creatinine Ratio 15.4 (6-22); Bilirubin Total 0.7 mg/dL (0.2-1.3); Blood Urea Nitrogen 12 mg/dL (7-17); Calcium 9.2 mg/dL (8.4-10.2); Carbon Dioxide 24 mmol/L (22-32); Chloride 105 mmol/L (98-107); Estimated Glomerular Filt Rate > 60 mL/min (>60); Globulin 3.2 g/dL (1.7-4.1); Glucose 97 mg/dL (70-100); HEMOLYSIS < 15 (0-50); Lipase 74 U/L (23-300); Sodium 136 mmol/L (137-145); Total Protein 7.5 g/dL (6.3-8.2)
--- NOTE | 2023-10-19 13:56 | ED.GENADULT ---
HPI - General Adult General Chief complaint: Abdominal Pain Stated complaint: bowel obstruction/ abd pain Time Seen by Provider: 10/19/23 13:03 Source: patient Mode of arrival: Ambulatory Limitations: no limitations History of Present Illness HPI narrative: Patient is a 53-year-old female. Has had prior C-sections and also her gallbladder removed. Approximately 1 week ago she was seen at an outside facility for abdominal pain. States she was admitted to the hospital for a bowel obstruction. She did not have an NG tube. No surgery. No subsequent radiologic studies after the initial evaluation. She states she was put on Cipro and Flagyl although she does not remember a specific diagnosis of diverticulitis. She has had diverticulitis in the past. Was discharged home after approximately 1 day. She states she did admit that she was feeling somewhat better but now over the past couple days she feels like her abdomen is more distended. Is having small bowel movements. Nausea but no vomiting. No fevers. No urinary symptoms. Is passing a ?small amount? of flatus. Related Data Home Medications Medication Instructions Recorded Confirmed multivitamin with minerals (Daily 1 tab PO DAILY 12/07/21 09/14/23 Multivitamin-Minerals tablet) Previous Rx's Medication Instructions Recorded duloxetine 20 mg capsule,delayed 40 mg (2 x 20 mg) PO DAILY #180 06/23/22 release caps gabapentin 300 mg capsule 600 mg (2 x 300 mg) PO BEDTIME 06/12/23 NERVE PAIN #180 caps amlodipine 5 mg tablet 5 mg PO DAILY HTN #90 tabs 06/23/23 naloxone 4 mg/actuation nasal 4 mg intranasal Q2M PRN opioid 08/03/23 spray (Narcan) overdose #2 ea hydrocodone 5 mg-acetaminophen 325 See Rx Instructions PO Q4H PRN 09/14/23 mg tablet pain #15 tabs prednisone 10 mg tablet See Rx Instructions .Route 09/14/23 .COMPLEX #20 tabs cyclobenzaprine 10 mg tablet 10 mg PO TID PRN muscle spasm #30 09/27/23 tabs Allergies Allergy/AdvReac Type Severity Reaction Status Date / Time No Known Drug Allergies Allergy Verified 09/14/23 09:25 Review of Systems Review of Systems ROS Unobtainable: All systems reviewed & are unremarkable except as noted in HPI and below Patient History Medical History Lumbar strain Slow transit constipation History of melanoma Chronic thoracic back pain Mixed hyperlipidemia Sleep apnea (2015) Essential hypertension (~2018) Epigastric abdominal pain (07/2019) Upper back pain on left side (05/2019) BMI 40.0-44.9, adult Shoulder pain Hypertension Surgical History Hx of cholecystectomy (11/04/19) History of bladder surgery Hx of section Family History Mother Liver failure Father Cancer Diabetes mellitus Hypertension Hyperlipidemia Brother Diabetes mellitus Hypertension Grandfather Diabetes mellitus Hypertension Grandmother Diabetes mellitus Hypertension Social History marital status: unknown details: single, one daughter household members: family and children occupational status: employed Smoking Status: Never smoker alcohol intake: current substance use type: does not use Smoking Status: Never smoker alcohol intake frequency: holidays/special occasions only Substance Use Type: does not use Exam Initial Vital Signs Initial Vital Signs: Vital Signs Pulse Rate 89 10/19/23 12:51 Blood Pressure 161/94 H 10/19/23 12:51 Pulse Oximetry 96 10/19/23 12:51 Const General: cooperative, comfortable and No ill appearing HENMT Head: normal to inspection and normocephalic Resp Effort & Inspection: normal respiratory effort Auscultation: clear to auscultation bilaterally Cardio Rate: regular rate Rhythm: regular rhythm GI Inspection: normal to inspection and non-distended Palpation: soft and No tender Skin General: no rashes or lesions noted Extrem General: normal to inspection and capillary refill normal Course Orders Ordered: ED Orders 10/19/23 12:56 EKG-12 Lead Stat 10/19/23 12:58 Complete Blood Count AUTO DIFF Stat Comprehensive Metabolic Panel Stat Lipase Stat Prothrombin Time INR Stat 10/19/23 13:04 CT abdomen pelvis w con Stat 10/19/23 14:45 Consult to General Surgery Stat Ondansetron HCl (Ondansetron 4 Mg Odt) 4 mg PO NOW PRN PRN Reason: Nausea And Vomiting Ondansetron HCl (Ondansetron 4 Mg/2 Ml Inj) 4 mg IV NOW PRN PRN Reason: Nausea And Vomiting Last Admin: 10/19/23 14:12 Dose: 4 mg Documented By: BLACK Discontinued Medications Lactulose (Lactulose 20 Gm/30 Ml Solution) 20 gm PO NOW ONE Stop: 10/19/23 16:16 Last Admin: 10/19/23 16:25 Dose: 20 gm Documented By: BLACK Morphine Sulfate (Morphine 4 Mg/Ml Inj) 4 mg IV NOW ONE Stop: 10/19/23 14:00 Last Admin: 10/19/23 14:12 Dose: 4 mg Documented By: BLACK Sodium Biphosphate/Sodium Phosphate (Fleets Enema) 1 each CO NOW ONE Stop: 10/19/23 16:16 Last Admin: 10/19/23 16:25 Dose: 1 each Documented By: BLACK Vital Signs Vital signs: Vital Signs - 8 hr 10/19/23 12:51 10/19/23 12:51 10/19/23 12:52 Temperature 98.7 F Pulse Rate 89 96 H Respiratory Rate 16 Blood Pressure 161/94 H 164/94 H Pulse Oximetry 96 96 Oxygen Delivery Method Room Air 10/19/23 12:58 10/19/23 12:58 10/19/23 13:00 Temperature Pulse Rate 88 89 Respiratory Rate Blood Pressure 154/82 H Pulse Oximetry 96 96 Oxygen Delivery Method 10/19/23 13:30 10/19/23 14:00 10/19/23 14:30 Temperature Pulse Rate 86 87 88 Respiratory Rate Blood Pressure Pulse Oximetry 95 95 95 Oxygen Delivery Method 10/19/23 15:00 10/19/23 15:30 10/19/23 16:00 Temperature Pulse Rate 85 87 84 Respiratory Rate Blood Pressure Pulse Oximetry 95 96 96 Oxygen Delivery Method 10/19/23 16:06 10/19/23 16:13 10/19/23 16:13 Temperature Pulse Rate Respiratory Rate Blood Pressure 151/82 H 151/82 H Pulse Oximetry 94 Oxygen Delivery Method 10/19/23 16:14 10/19/23 16:14 Temperature Pulse Rate 84 Respiratory Rate Blood Pressure 144/76 H Pulse Oximetry 96 Oxygen Delivery Method Medical Decision Making Lab Data Lab results reviewed: Yes I reviewed the patient's lab results. 10/19/23 12:58 10/19/23 12:58 Labs: Lab Results 10/19/23 Range/Units 12:58 WBC 7.0 (4.5-11.0) X10^3/uL RBC 4.79 (4.0-5.2) X10^6/uL Hgb 15.0 (12.0-16.0) g/dL Hct 43.2 (36-46) % MCV 90.2 (80-100) fL MCH 31.3 (26-34) PG MCHC 34.6 (30-36) % RDW 12.7 (11.6-14.8) % Plt Count 308 (150-400) X10^3/uL Neut % (Auto) 64.5 (50-75) % Lymph % (Auto) 22.8 L (25-40) % [place] % (Auto) 6.2 (3-14) % Eos % (Auto) 5.7 H (2-4) % Baso % (Auto) 0.8 (0-2) % Neut # (Auto) 4500 (8105-2144) /uL Lymph # (Auto) 1600 (5717-0481) /uL [place] # (Auto) 400 (0-900) /uL Eos # (Auto) 400 (0-450) /uL Baso # (Auto) 100 (0-100) /uL PT 12.2 (9.4-12.5) SECONDS INR 1.1 (0.9-1.3) Sodium 136 L (137-145) mmol/L Potassium 4.0 (3.4-5.1) mmol/L Chloride 105 (98-107) mmol/L Carbon Dioxide 24 (22-32) mmol/L BUN 12 (7-17) mg/dL Creatinine 0.78 (0.52-1.04) mg/dL Estimated GFR > 60 (>60) mL/min BUN/Creatinine Ratio 15.4 (6-22) Glucose 97 (70-100) mg/dL Calcium 9.2 (8.4-10.2) mg/dL Total Bilirubin 0.7 (0.2-1.3) mg/dL AST 38 H (14-36) IU/L ALT 43 H (<35) IU/L Alkaline Phosphatase 59 (38-126) U/L Total Protein 7.5 (6.3-8.2) g/dL Albumin 4.3 (3.5-5.0) g/dL Globulin 3.2 (1.7-4.1) g/dL Albumin/Globulin Ratio 1.3 (1.0-2.8) Lipase 74 (23-300) U/L Point of Care Testing Test Results Negative Urine Dip Bedside Urine Glucose Negative Bedside Urine Bilirubin - Negative Bedside Urine Ketone - Negative Urine Specific [place] 1.010 Bedside Urine Occult Blood - Negative Bedside Urine pH 5.5 Bedside Urine Protein - Negative Bedside Urine Urobilinogen - Negative Bedside Urine Nitrite - Negative Bedside Urine Leukocytes - Negative Esterase Point of care testing: Point of Care Testing Test Results Negative Urine Dip Bedside Urine Glucose Negative Bedside Urine Bilirubin - Negative Bedside Urine Ketone - Negative Urine Specific [place] 1.010 Bedside Urine Occult Blood - Negative Bedside Urine pH 5.5 Bedside Urine Protein - Negative Bedside Urine Urobilinogen - Negative Bedside Urine Nitrite - Negative Bedside Urine Leukocytes - Negative Esterase Imaging Data CT scan - abdomen/pelvis: Radiologist's Impression: PROCEDURE: CT ABDOMEN PELVIS W CON INDICATIONS: eval for SBO TECHNIQUE: After the administration of intravenous contrast, axial sections acquired from the lung bases to the pubic symphysis. Coronal and sagittal reformats were performed. For radiation dose reduction, the following was used: automated exposure control, adjustment of mA and/or kV according to patient size. COMPARISON: [facility], CT, CT ABDOMEN PELVIS W CON, 03/22/2023, 21:43., CT abdomen and pelvis with contrast 10/14/[address] [facility] FINDINGS: Image quality: Diagnostic. Lower Chest: No significant findings. ABDOMEN: Liver: No solid mass. Gallbladder: Surgically absent bone Biliary ducts: No biliary dilation. Pancreas: No ductal dilation. Spleen: Size is within normal limits. Adrenal Glands: No adrenal nodules. Kidneys and Ureters: No hydronephrosis. No solid mass. No complex renal cystic lesion which requires follow up. Stomach and Bowel: There is no evidence of small-bowel obstruction. There is moderately large fecal load. Colon is prominent period there are nondilated fluid-filled loops of small bowel. Question constipation. Question colonic ileus. There is mild sigmoid diverticulosis without evidence of diverticulitis. Peritoneum: No abnormal intraperitoneal fluid. No free air. Ventral Wall: No significant ventral hernia. Abdominal Nodes: No retroperitoneal or mesenteric adenopathy by size criteria. Vessels: Aorta and inferior vena cava are normal in size. PELVIS: Pelvic Organs: Unremarkable. Bladder: No bladder wall thickening, accounting for underdistention. Pelvic Nodes: No enlarged lymph nodes. Miscellaneous: No inguinal hernias are seen. Bones: No aggressive osseous abnormality. IMPRESSION: 1. No evidence of small-bowel obstruction. 2. Question constipation. Question colonic ileus. 3. Very mild diverticulosis without evidence of diverticulitis. Exclude 4 period remote cholecystectomy. ECG Data Attestation: I personally reviewed and interpreted this ECG as follows: Interpretation: Sinus rhythm Ventricular rate 81 Normal QRS Normal QTC No ST T wave changes MDM Narrative Medical decision making narrative: I was able to review her medical records from the outside facility. Sounded like she was admitted to the hospital for constipation versus ileus versus diverticulitis. She was discharged the next day without specific surgical intervention. CT scan today concerning for constipation versus ileus. Discussed the case with Dr. Garner with general surgery who evaluated the CT scan and also evaluated the patient. We gave the patient an enema and lactulose here in the emergency department. She had a large bowel movement. She states she felt much better afterwards. I suspect that this is the cause of her pain. Will hold on an admission for now. We discussed continued bowel regimen at home with the patient. Discussed return precautions and follow-up instructions. She expressed understanding and agreement. Discharge Plan Departure Patient Disposition: Home Clinical Impression: Constipation Qualifiers: Constipation type: unspecified constipation type Qualified Code(s): K59.00 - Constipation, unspecified Instructions: DI for Constipation Activity Restrictions/Additional Instructions: I do recommend that you increase your fluid intake. Let your body tell you over the next 12-24 hours whether or not you need to continue to take laxatives or stool softener. You may have a couple more loose bowel movements during this time. Continue all of your medications as directed. Return to the emergency department for new symptoms. Prescriptions: No Action gabapentin 300 mg capsule 600 mg PO BEDTIME Qty: 180 3RF amlodipine 5 mg tablet 5 mg PO DAILY Qty: 90 3RF cyclobenzaprine 10 mg tablet 10 mg PO TID PRN (Reason: muscle spasm) Qty: 30 1RF Daily Multivitamin-Minerals Tablet 1 tab PO DAILY duloxetine 20 mg capsule,delayed release(DR/EC) 40 mg PO DAILY Qty: 180 3RF prednisone 10 mg tablet See Rx Instructions .Route .COMPLEX Qty: 20 2RF Rx Instructions: 4 tablets daily for 2 days, then 3 tablets daily for 2 days, then 2 tablets daily for 2 days, then 1 tablet daily for 2 days then stop; hydrocodone-acetaminophen 5-325 mg tablet See Rx Instructions PO Q4H PRN (Reason: pain) Qty: 15 0RF Rx Instructions: 1-2 tabs PO Q4H PRN; naloxone [Narcan] 4 mg/actuation spray,non-aerosol 4 mg intranasal Q2M PRN (Reason: opioid overdose) Qty: 2 0RF Rx Instructions: spray 1 dose into ONE nostril; alternate nostrils w each dose until help arrives Referrals: Dima Cook MD [Primary Care Provider] - Stand Alone Forms: Patient Portal/API
[2023-10-19] MEDS: ONDANSETRON 4 MG/2 ML INJ IV (14:12)
[2023-10-19] MEDS: MORPHINE 4 MG/ML INJ IV (14:12)
--- NOTE | 2023-10-19 15:43 | P.CONS_ITS ---
History of Present Illness Consult details Date Patient Seen: 10/19/23 Time Patient Seen: 15:43 Chief complaint: bowel obstruction/ abd pain Narrative: Nadeen is a 53-year-old woman who presented with upper abdominal pain, distention and nausea. She was admitted at [facility] few days ago for the same symptoms. She was felt to have an ileus versus a small-bowel obstruction and was treated with supportive care and discharged after about 24 hours when she seemed to be improving. Her symptoms have returned or never actually went away and she presented here today. She reports that she has not had a bowel movements since before Monday. She is passing some gas but not much. A CT scan was performed here that showed a large stool burden consistent with constipation versus possible colonic ileus. She has had no recent surgery or changes to her medications. Her prior abdominal surgery includes a and cholecystectomy Meds Home Medications and Allergies Home Medications Medication Instructions Recorded Confirmed Type multivitamin with minerals (Daily 1 tab PO DAILY 12/07/21 09/14/23 History Multivitamin-Minerals tablet) duloxetine 20 mg capsule,delayed 40 mg (2 x 20 mg) PO DAILY #180 06/23/22 09/14/23 Rx release caps gabapentin 300 mg capsule 600 mg (2 x 300 mg) PO BEDTIME 06/12/23 09/14/23 Rx NERVE PAIN #180 caps amlodipine 5 mg tablet 5 mg PO DAILY HTN #90 tabs 06/23/23 09/14/23 Rx naloxone 4 mg/actuation nasal 4 mg intranasal Q2M PRN opioid 08/03/23 09/14/23 Rx spray (Narcan) overdose #2 ea hydrocodone 5 mg-acetaminophen 325 See Rx Instructions PO Q4H PRN 09/14/23 09/14/23 Rx mg tablet pain #15 tabs prednisone 10 mg tablet See Rx Instructions .Route 09/14/23 09/14/23 Rx .COMPLEX #20 tabs cyclobenzaprine 10 mg tablet 10 mg PO TID PRN muscle spasm #30 09/27/23 Rx tabs Allergies Allergy/AdvReac Type Severity Reaction Status Date / Time No Known Drug Allergies Allergy Verified 09/14/23 09:25 Exam Vital Signs (past 8 hours): - 10/19/23 12:51 10/19/23 12:51 10/19/23 12:52 Temperature 98.7 F Pulse Rate 89 96 H Respiratory Rate 16 Blood Pressure 161/94 H 164/94 H Pulse Oximetry 96 96 Oxygen Delivery Method Room Air 10/19/23 12:58 10/19/23 12:58 10/19/23 13:00 Temperature Pulse Rate 88 89 Respiratory Rate Blood Pressure 154/82 H Pulse Oximetry 96 96 Oxygen Delivery Method 10/19/23 13:30 Temperature Pulse Rate 86 Respiratory Rate Blood Pressure Pulse Oximetry 95 Oxygen Delivery Method Oxygen Delivery Method Room Air Narrative Exam Narrative: Abdomen soft, minimally tender No peritoneal findings Surgical scars including transverse scar where she had a skin cancer removed in the upper abdomen Objective Labs 10/19/23 12:58 10/19/23 12:58 Labs: Laboratory Results - last 24 hr 10/19/23 12:58 WBC 7.0 RBC 4.79 Hgb 15.0 Hct 43.2 MCV 90.2 MCH 31.3 MCHC 34.6 RDW 12.7 Plt Count 308 Neut % (Auto) 64.5 Lymph % (Auto) 22.8 L [place] % (Auto) 6.2 Eos % (Auto) 5.7 H Baso % (Auto) 0.8 Neut # (Auto) 4500 Lymph # (Auto) 1600 [place] # (Auto) 400 Eos # (Auto) 400 Baso # (Auto) 100 PT 12.2 INR 1.1 Sodium 136 L Potassium 4.0 Chloride 105 Carbon Dioxide 24 BUN 12 Creatinine 0.78 Estimated GFR > 60 BUN/Creatinine Ratio 15.4 Glucose 97 Calcium 9.2 Total Bilirubin 0.7 AST 38 H ALT 43 H Alkaline Phosphatase 59 Total Protein 7.5 Albumin 4.3 Globulin 3.2 Albumin/Globulin Ratio 1.3 Lipase 74 PFSH Medical History Lumbar strain Slow transit constipation History of melanoma Chronic thoracic back pain Mixed hyperlipidemia Sleep apnea (2014) Essential hypertension (~2018) Epigastric abdominal pain (07/2019) Upper back pain on left side (05/2019) BMI 40.0-44.9, adult Shoulder pain Hypertension Surgical History Hx of cholecystectomy (11/04/19) History of bladder surgery Hx of section Family History Mother Liver failure Father Cancer Diabetes mellitus Hypertension Hyperlipidemia Brother Diabetes mellitus Hypertension Grandfather Diabetes mellitus Hypertension Grandmother Diabetes mellitus Hypertension Social History marital status: unknown details: single, one daughter household members: family and children occupational status: employed Tobacco & Substance Use Smoking Status: Never smoker alcohol intake: current substance use type: does not use Assessment & Plan Assessment and plan (1) Constipation: Qualifiers: Constipation type: unspecified constipation type Qualified Code(s): K 59.00 - Constipation, unspecified Status: Acute Plan I suspect she more likely has a severe case of constipation. She has no risk factors her colonic pseudo-obstruction. Recommend admission and enemas to see if she can start to stimulate bowel movements which fits she could be discharged home.
--- NOTE | 2023-10-19 16:04 | P.HP_ITS ---
History of Present Illness History of Present Illness Chief complaint: bowel obstruction/ abd pain Narrative: Nadeen Holly is a 53yo F with PMH of HTN, HLD, morbid obesity, BABS not on CPAP, cholecystectomy, , depression and chronic back pain who presents with abd pain and distention. [facility] Medical History Lumbar strain Slow transit constipation History of melanoma Chronic thoracic back pain Mixed hyperlipidemia Sleep apnea (2014) Essential hypertension (~2018) Epigastric abdominal pain (07/2019) Upper back pain on left side (05/2019) BMI 40.0-44.9, adult Shoulder pain Hypertension Surgical History Hx of cholecystectomy (11/04/19) History of bladder surgery Hx of section Family History Mother Liver failure Father Cancer Diabetes mellitus Hypertension Hyperlipidemia Brother Diabetes mellitus Hypertension Grandfather Diabetes mellitus Hypertension Grandmother Diabetes mellitus Hypertension Social History marital status: unknown details: single, one daughter household members: family and children occupational status: employed Smoking Status: Never smoker alcohol intake: current substance use type: does not use Meds Home Medications and Allergies Home Medications Medication Instructions Recorded Confirmed Type multivitamin with minerals (Daily 1 tab PO DAILY 12/07/21 09/14/23 History Multivitamin-Minerals tablet) duloxetine 20 mg capsule,delayed 40 mg (2 x 20 mg) PO DAILY #180 06/23/22 09/14/23 Rx release caps gabapentin 300 mg capsule 600 mg (2 x 300 mg) PO BEDTIME 06/12/23 09/14/23 Rx NERVE PAIN #180 caps amlodipine 5 mg tablet 5 mg PO DAILY HTN #90 tabs 06/23/23 09/14/23 Rx naloxone 4 mg/actuation nasal 4 mg intranasal Q2M PRN opioid 08/03/23 09/14/23 Rx spray (Narcan) overdose #2 ea hydrocodone 5 mg-acetaminophen 325 See Rx Instructions PO Q4H PRN 09/14/23 09/14/23 Rx mg tablet pain #15 tabs prednisone 10 mg tablet See Rx Instructions .Route 09/14/23 09/14/23 Rx .COMPLEX #20 tabs cyclobenzaprine 10 mg tablet 10 mg PO TID PRN muscle spasm #30 09/27/23 Rx tabs Allergies Allergy/AdvReac Type Severity Reaction Status Date / Time No Known Drug Allergies Allergy Verified 09/14/23 09:25 Exam Vital Signs (past 8 hours): - 10/19/23 12:51 10/19/23 12:51 10/19/23 12:52 Temperature 98.7 F Pulse Rate 89 96 H Respiratory Rate 16 Blood Pressure 161/94 H 164/94 H Pulse Oximetry 96 96 Oxygen Delivery Method Room Air 10/19/23 12:58 10/19/23 12:58 10/19/23 13:00 Temperature Pulse Rate 88 89 Respiratory Rate Blood Pressure 154/82 H Pulse Oximetry 96 96 Oxygen Delivery Method 10/19/23 13:30 Temperature Pulse Rate 86 Respiratory Rate Blood Pressure Pulse Oximetry 95 Oxygen Delivery Method Oxygen Delivery Method Room Air Objective Labs 10/19/23 12:58 10/19/23 12:58 Labs: Laboratory Results - last 24 hr 10/19/23 12:58 WBC 7.0 RBC 4.79 Hgb 15.0 Hct 43.2 MCV 90.2 MCH 31.3 MCHC 34.6 RDW 12.7 Plt Count 308 Neut % (Auto) 64.5 Lymph % (Auto) 22.8 L [place] % (Auto) 6.2 Eos % (Auto) 5.7 H Baso % (Auto) 0.8 Neut # (Auto) 4500 Lymph # (Auto) 1600 [place] # (Auto) 400 Eos # (Auto) 400 Baso # (Auto) 100 PT 12.2 INR 1.1 Sodium 136 L Potassium 4.0 Chloride 105 Carbon Dioxide 24 BUN 12 Creatinine 0.78 Estimated GFR > 60 BUN/Creatinine Ratio 15.4 Glucose 97 Calcium 9.2 Total Bilirubin 0.7 AST 38 H ALT 43 H Alkaline Phosphatase 59 Total Protein 7.5 Albumin 4.3 Globulin 3.2 Albumin/Globulin Ratio 1.3 Lipase 74
[2023-10-19] MEDS: FLEETS ENEMA 1 EACH PR (16:25)
[2023-10-19] MEDS: LACTULOSE 20 GM/30 ML SOLUTION PO (16:25)
== END 2023-10-19 17:51 | disposition home or self-care (01) ==
PROVIDERS: Emergency Provider Emergency Medicine; Family Provider Family Medicine; PCP Internal Medicine
DX: K59.00 Constipation, unspecified (principal); R10.9 Unspecified abdominal pain
CPT/HCPCS: 36415; 74177; 80053; 81003; 81025; 83690; 85025; 85610; 93005; 96374; 96375; 99282; 99284; 99285; J2270; J2405

== ENCOUNTER → 2023-10-27 07:42 | Outpatient (CLI) | payer OTHER, SELFPAY ==
--- NOTE | 2023-10-27 | DI.MG.S_ITS ---
BILATERAL DIGITAL SCREENING MAMMOGRAM 3D/2D WITH CAD: 10/27/2023 CLINICAL: Routine screening. Family history of breast cancer. Comparison is made to exams dated: 02/16/2023 mammogram, 06/15/2022 mammogram, 09/23/2020 mammogram, and 05/09/2019 mammogram - [facility]. There are scattered areas of fibroglandular density in both breasts (category b / 25%-50% glandular tissue). Current study was also evaluated with a Computer Aided Detection (CAD) system. No significant masses, calcifications, or other findings are seen in either breast. There has been no significant interval change. IMPRESSION: NEGATIVE There is no mammographic evidence of malignancy. A 1 year screening mammogram is recommended. Based on the Tyrer Cuzick model (a risk assessment model) the patient's lifetime risk is 11.8% and her 10 year risk is 3.1%. According to the ACR, ACS, and NCCN guidelines, an annual breast MRI exam along with mammogram is recommended if the patient's lifetime risk is 20% or greater. This exam was interpreted at Station ID: [id number]. NOTE: For mammograms, a report in lay terms will be sent to the patient. Approximately 15% of breast malignancies will not be visualized mammographically. In the management of a palpable breast mass, a negative mammogram must not discourage biopsy of a clinically suspicious lesion. Electronically Signed By: Elijah lopez/benedicto:10/27/2023 13:17:11 letter sent: Normal Exam ACR BI-RADS Category 1: Negative 3341F
== END ==
LOC: MAMMO 07:43
PROVIDERS: Family Provider Family Medicine; PCP Internal Medicine; Referring Provider Internal Medicine; Visit Provider Internal Medicine
DX: Z12.31 Encounter for screening mammogram for malignant neoplasm of breast (principal); Z80.3 Family history of malignant neoplasm of breast; R92.323 Mammographic fibroglandular density, bilateral breasts
CPT/HCPCS: 77063; 77067

== ENCOUNTER 2023-11-03 12:22 | Inpatient (IN) | payer OTHER, SELFPAY ==
[2023-11-03] VITALS (20 sets, daily range): BP systolic 136–166; BP diastolic 78–95; PULSE 78–110; RESP 13–20; TEMP 35.7–37; O2SAT 96–100; BMI 39.4
[2023-11-03 12:51] LABS: Add Manual Diff / Slide Review NO; Basophils Absolute Auto 0 /uL (0-100); Basophils Percent Auto 0.4 % (0-2); Eosinophils Absolute Auto 900 /uL (0-450); Eosinophils Percent Auto 9.3 % (2-4); Hematocrit 42.4 % (36-46); Hemoglobin 14.7 g/dL (12.0-16.0); Lymphocytes Absolute Auto 2000 /uL (1100-4500); Lymphocytes Percent Auto 21.5 % (25-40); Mean Corpuscular HGB Conc 34.8 % (30-36); Mean Corpuscular Hemoglobin 31.9 PG (26-34); Mean Corpuscular Volume 91.7 fL (80-100); Monocytes Absolute Auto 200 /uL (0-900); Monocytes Percent Auto 2.6 % (3-14); Neutrophils Absolute Auto 6100 /uL (1500-7000); Neutrophils Percent Auto 66.2 % (50-75); Platelet Count 348 X10^3/uL (150-400); Red Blood Cell Count 4.62 X10^6/uL (4.0-5.2); Red Cell Distribution Width 13.1 % (11.6-14.8); White Blood Cell Count 9.2 X10^3/uL (4.5-11.0)
[2023-11-03 12:53] LABS: Alanine Aminotransferase 25 IU/L (<35); Albumin 4.5 g/dL (3.5-5.0); Albumin Globulin Ratio 1.4 (1.0-2.8); Alkaline Phosphatase 49 U/L (38-126); Aspartate Aminotransferase 28 IU/L (14-36); BUN Creatinine Ratio 19.2 (6-22); Bilirubin Total 0.6 mg/dL (0.2-1.3); Blood Urea Nitrogen 14 mg/dL (7-17); Carbon Dioxide 25 mmol/L (22-32); Chloride 104 mmol/L (98-107); Estimated Glomerular Filt Rate > 60 mL/min (>60); Globulin 3.3 g/dL (1.7-4.1); Glucose 94 mg/dL (70-100); HEMOLYSIS 61 (0-50); Lipase 70 U/L (23-300); Potassium 4.2 mmol/L (3.4-5.1); Sodium 140 mmol/L (137-145); Total Protein 7.8 g/dL (6.3-8.2)
--- NOTE | 2023-11-03 14:58 | DI.CT.S_ITS ---
PROCEDURE: CT ABDOMEN PELVIS W CON INDICATIONS: iv contrast only/abd pain TECHNIQUE: After the administration of intravenous contrast, axial sections acquired from the lung bases to the pubic symphysis. Coronal and sagittal reformats were performed. For radiation dose reduction, the following was used: automated exposure control, adjustment of mA and/or kV according to patient size. COMPARISON: [facility], CT, CT ABDOMEN PELVIS W CON, 10/19/2023, 13:39. [facility], CT, CT ABDOMEN PELVIS W CON, 03/22/2023, 21:43. FINDINGS: Image quality: Diagnostic. Lower Chest: No significant findings. ABDOMEN: Liver: No solid mass. Gallbladder: Previously resected Biliary ducts: No biliary dilation. Pancreas: No ductal dilation. Spleen: Size is within normal limits. Adrenal Glands: No adrenal nodules. Kidneys and Ureters: No hydronephrosis. No solid mass. No complex renal cystic lesion which requires follow up. Stomach and Bowel: Normal colonic caliber, without significant wall thickening. Small-bowel mild dilatation has developed within the upper and mid abdomen and at the right lower quadrant normal caliber small bowel can be seen approaching the colon. The small bowel on CT scanning 10/19/23 had not shown this appearance. Peritoneum: No abnormal intraperitoneal fluid. No free air. Ventral Wall: No significant ventral hernia. Abdominal Nodes: No retroperitoneal or mesenteric adenopathy by size criteria. Vessels: Aorta and inferior vena cava are normal in size. PELVIS: Pelvic Organs: Unremarkable. Bladder: No bladder wall thickening, accounting for underdistention. Pelvic Nodes: No enlarged lymph nodes. Miscellaneous: No inguinal hernias are seen. Bones: No aggressive osseous abnormality. IMPRESSION: Early small bowel obstruction versus small bowel ileus, without colonic dilatation. This was not present 10/19/23. A mechanical etiology such as bowel hernia or torsion, or intussusception, is not seen. In such circumstances adhesion is the likely cause. Dictated by: Ethan Doty M.D. on 11/03/2023 at 15:36 Approved by: Ethan Doty M.D. on 11/03/2023 at 15:40
--- NOTE | 2023-11-03 14:58 | ED.ABDPAIN ---
HPI - Abdominal Pain General Chief Complaint: Abdominal Pain Stated Complaint: ABDOMINAL PAIN SENT BY PCP Time Seen by Provider: 11/03/23 14:41 Source: patient Mode of arrival: Ambulatory History of Present Illness HPI narrative: Patient here October 19, [address] imaging showed constipation versus ileus. Patient has history of and cholecystectomy. Patient states history of bowel obstruction as well. Possible history of diverticulosis diverticulitis. Patient is seen by primary care yesterday she states for follow up for that visit. Primary care told her that she had gastritis but no medications were started. Pain continues today from yesterday. It is sharp pain epigastric and left upper quadrant. Has had nausea but no vomiting. Daughter is driving. Related Data Home Medications Medication Instructions Recorded Confirmed multivitamin with minerals (Daily 1 tab PO DAILY 12/07/21 11/14/23 Multivitamin-Minerals tablet) Previous Rx's Medication Instructions Recorded gabapentin 300 mg capsule 600 mg (2 x 300 mg) PO BEDTIME 06/12/23 NERVE PAIN #180 caps amlodipine 5 mg tablet 5 mg PO DAILY HTN #90 tabs 06/23/23 cyclobenzaprine 10 mg tablet 10 mg PO TID PRN muscle spasm #30 09/27/23 tabs duloxetine 20 mg capsule,delayed 40 mg (2 x 20 mg) PO DAILY #180 10/27/23 release caps celecoxib 100 mg capsule 100 mg PO BID #60 caps 11/14/23 Allergies Allergy/AdvReac Type Severity Reaction Status Date / Time No Known Drug Allergies Allergy Verified 11/14/23 09:42 Review of Systems Review of Systems Narrative: GENERAL: negative chills, fatigue, malaise, fever, sweats. HEENT: negative sinus pain, ear pain, sore throat RESPIRATORY: negative dyspnea, cough CARDIOVASCULAR: negative chest pain, palpitations GASTROINTESTINAL: + nausea, negative vomiting, positive abdominal pain : negative dysuria, frequency, hematuria MUSCULOSKELETAL: negative muscle or bony pain SKIN: negative rash, skin lesions NEUROLOGIC: negative weakness, numbness ROS Unobtainable: All systems reviewed & are unremarkable except as noted in HPI and below Patient History Medical History History of melanoma Chronic thoracic back pain Mixed hyperlipidemia Sleep apnea (2014) Essential hypertension (~2018) BMI 40.0-44.9, adult Hypertension Surgical History Hx of cholecystectomy (11/04/19) History of bladder surgery Hx of section Family History Mother Liver failure Father Cancer Diabetes mellitus Hypertension Hyperlipidemia Brother Diabetes mellitus Hypertension Grandfather Diabetes mellitus Hypertension Grandmother Diabetes mellitus Hypertension Social History marital status: unknown details: single, one daughter household members: family and children occupational status: employed Smoking Status: Never smoker alcohol intake: current substance use type: does not use Smoking Status: Never smoker alcohol intake frequency: holidays/special occasions only Substance Use Type: does not use Exam Narrative Exam Narrative: GENERAL: in no distress, not toxic not dyspneic HEAD: Normocephalic. EYES: Pupils equal round ENT: Mucous membranes moist. NECK: Trachea midline. CARDIOVASCULAR: Regular rate and rhythm RESPIRATORY: Clear to auscultation. Breath sounds equal bilaterally. No wheezes, rales, or rhonchi. GASTROINTESTINAL: Abdomen soft, reproducible epigastric left upper quadrant tenderness no CVA tenderness. Bowel sounds are present. No pain out of proportion to exam. EXTREMITIES: No gross deformities. BACK: No flank tenderness. NEURO: AOx4. SKIN: Warm and dry PSYCH: Not anxious, is cooperative Initial Vital Signs Initial Vital Signs: Vital Signs Temperature 98.6 F 11/03/23 12:23 Pulse Rate 89 11/03/23 12:23 Respiratory Rate 14 11/03/23 12:23 Blood Pressure 164/93 H 11/03/23 12:23 Pulse Oximetry 97 11/03/23 12:23 Oxygen Delivery Method Room Air 11/03/23 12:23 Course Orders Ordered: Discontinued Medications Acetaminophen (Acetaminophen 325 Mg Tablet) 650 mg PO Q6H PRN PRN Reason: Fever/Mild Pain (1-3) Celecoxib (Celecoxib 200 Mg Capsule) 200 mg PO BID CORTNEY Last Admin: 11/06/23 08:14 Dose: 200 mg Documented By: Admin: 11/05/23 20:36 Dose: 200 mg Documented By: Admin: 11/05/23 11:27 Dose: 200 mg Documented By: EV Al Hydrox/Mg Hydrox/Simethicone 20 ml/ Lidocaine HCl 15 ml 0 ml PO NOW ONE Stop: 11/03/23 14:57 Last Admin: 11/03/23 15:18 Dose: 35 ml Documented By: RB Duloxetine HCl (Duloxetine 20 Mg Capsule) 40 mg PO DAILY [facility] Last Admin: 11/06/23 08:13 Dose: 40 mg Documented By: Admin: 11/05/23 11:27 Dose: 40 mg Documented By: EV Gabapentin (Gabapentin 300 Mg Capsule) 300 mg PO TID [facility] Last Admin: 11/06/23 08:14 Dose: 300 mg Documented By: Admin: 11/05/23 20:36 Dose: 300 mg Documented By: Admin: 11/05/23 15:46 Dose: 300 mg Documented By: Admin: 11/05/23 11:27 Dose: 300 mg Documented By: EV Sodium Chloride (Normal Saline 0.9%) 1,000 mls @ 1,000 mls/hr IV BOLUS ONE Stop: 11/03/23 15:55 Last Infusion: 11/03/23 16:36 Dose: Infused Documented By: Admin: 11/03/23 15:20 Dose: 1,000 mls/hr Documented By: RB Dextrose/Sodium Chloride (Dextrose 5%-0.45% Ns) 1,000 mls @ 100 mls/hr IV CONT [facility] Last Admin: 11/06/23 03:24 Dose: 100 mls/hr Documented By: Infusion: 11/06/23 03:24 Dose: Infused Documented By: Admin: 11/05/23 18:00 Dose: 100 mls/hr Documented By: Infusion: 11/05/23 15:28 Dose: Infused Documented By: Admin: 11/05/23 05:28 Dose: 100 mls/hr Documented By: Infusion: 11/05/23 05:28 Dose: Infused Documented By: Admin: 11/04/23 19:39 Dose: 100 mls/hr Documented By: Infusion: 11/04/23 13:53 Dose: Infused Documented By: Admin: 11/04/23 03:53 Dose: 100 mls/hr Documented By: Infusion: 11/04/23 03:53 Dose: Infused Documented By: Admin: 11/03/23 18:23 Dose: 100 mls/hr Documented By: CEW POTASSIUM CHLORIDE IN WATER (Potassium Cl 10 Meq/100 Ml Janet) 10 meq in 100 mls @ 100 mls/hr IV Q1H CORTNEY Stop: 11/04/23 11:14 Last Admin: 11/04/23 11:18 Dose: Not Given Documented By: Admin: 11/04/23 09:43 Dose: 100 mls/hr Documented By: ABHINAV Morphine Sulfate (Morphine 4 Mg/Ml Inj) 3 mg IV Q2HR CORTNEY Morphine Sulfate (Morphine 4 Mg/Ml Inj) 3 mg IV Q2HR PRN PRN Reason: Pain, Moderate (4-6) Last Admin: 11/05/23 20:36 Dose: 3 mg Documented By: Admin: 11/05/23 10:09 Dose: 3 mg Documented By: Admin: 11/05/23 01:28 Dose: 3 mg Documented By: Admin: 11/04/23 09:44 Dose: 3 mg Documented By: Admin: 11/04/23 01:17 Dose: 3 mg Documented By: Admin: 11/03/23 18:24 Dose: 3 mg Documented By: ABHINAV Naloxone HCl (Naloxone 0.4 Mg/Ml Vial) 0.2 mg IV Q2MIN PRN PRN Reason: Opiate Reversal Ondansetron HCl (Ondansetron 4 Mg/2 Ml Inj) 4 mg IV NOW PRN PRN Reason: Nausea And Vomiting Last Admin: 11/03/23 15:18 Dose: 4 mg Documented By: MARILEE Ondansetron HCl (Ondansetron 4 Mg/2 Ml Inj) 4 mg IV Q8HR PRN PRN Reason: Nausea And Vomiting Last Admin: 11/03/23 20:29 Dose: 4 mg Documented By: SR Pantoprazole Sodium (Pantoprazole 40 Mg Vial) 40 mg IV NOW ONE Stop: 11/03/23 14:57 Last Admin: 11/03/23 15:18 Dose: 40 mg Documented By: RB Potassium Chloride (Potassium Chloride 20 Meq Tab) 20 meq PO NOW ONE Stop: 11/04/23 10:46 Last Admin: 11/04/23 11:16 Dose: 20 meq Documented By: ABHINAV Vital Signs Vital signs: Vital Signs - 8 hr 11/03/23 12:23 11/03/23 12:26 11/03/23 12:26 Temperature 98.6 F Pulse Rate 89 84 Respiratory Rate 14 Blood Pressure 164/93 H 164/93 H Pulse Oximetry 97 96 Oxygen Delivery Method Room Air 11/03/23 12:29 11/03/23 12:29 11/03/23 12:30 Temperature Pulse Rate 91 H 88 Respiratory Rate 17 17 Blood Pressure 159/82 H Pulse Oximetry 98 98 Oxygen Delivery Method 11/03/23 12:30 11/03/23 13:00 11/03/23 13:00 Temperature Pulse Rate 81 Respiratory Rate 15 Blood Pressure 156/81 H 151/86 H Pulse Oximetry 97 Oxygen Delivery Method 11/03/23 13:30 11/03/23 13:30 11/03/23 14:00 Temperature Pulse Rate 81 79 Respiratory Rate 14 15 Blood Pressure 153/87 H Pulse Oximetry 98 99 Oxygen Delivery Method 11/03/23 14:00 11/03/23 14:30 11/03/23 14:30 Temperature Pulse Rate 79 Respiratory Rate 17 Blood Pressure 149/88 H 146/95 H Pulse Oximetry 99 Oxygen Delivery Method 11/03/23 15:00 11/03/23 15:12 11/03/23 15:12 Temperature Pulse Rate 93 H 88 Respiratory Rate 16 18 Blood Pressure 136/78 Pulse Oximetry 98 99 Oxygen Delivery Method 11/03/23 15:30 11/03/23 16:00 Temperature Pulse Rate 86 83 Respiratory Rate 17 19 Blood Pressure Pulse Oximetry 98 98 Oxygen Delivery Method MDM - Abdominal Pain Lab Data 11/05/23 09:23 11/05/23 09:23 Labs: Lab Results 11/03/23 Range/Units 12:30 WBC 9.2 (4.5-11.0) X10^3/uL RBC 4.62 (4.0-5.2) X10^6/uL Hgb 14.7 (12.0-16.0) g/dL Hct 42.4 (36-46) % MCV 91.7 (80-100) fL MCH 31.9 (26-34) PG MCHC 34.8 (30-36) % RDW 13.1 (11.6-14.8) % Plt Count 348 (150-400) X10^3/uL Neut % (Auto) 66.2 (50-75) % Lymph % (Auto) 21.5 L (25-40) % [place] % (Auto) 2.6 L (3-14) % Eos % (Auto) 9.3 H (2-4) % Baso % (Auto) 0.4 (0-2) % Neut # (Auto) 6100 (8769-5467) /uL Lymph # (Auto) 2000 (3975-3564) /uL [place] # (Auto) 200 (0-900) /uL Eos # (Auto) 900 H (0-450) /uL Baso # (Auto) 0 (0-100) /uL Sodium 140 (137-145) mmol/L Potassium 4.2 (3.4-5.1) mmol/L Chloride 104 (98-107) mmol/L Carbon Dioxide 25 (22-32) mmol/L BUN 14 (7-17) mg/dL Creatinine 0.73 (0.52-1.04) mg/dL Estimated GFR > 60 (>60) mL/min BUN/Creatinine Ratio 19.2 (6-22) Glucose 94 (70-100) mg/dL Calcium 9.0 (8.4-10.2) mg/dL Total Bilirubin 0.6 (0.2-1.3) mg/dL AST 28 (14-36) IU/L ALT 25 (<35) IU/L Alkaline Phosphatase 49 (38-126) U/L Total Protein 7.8 (6.3-8.2) g/dL Albumin 4.5 (3.5-5.0) g/dL Globulin 3.3 (1.7-4.1) g/dL Albumin/Globulin Ratio 1.4 (1.0-2.8) Lipase 70 (23-300) U/L Point of care testing: Point of Care Testing Test Results Negative Urine Dip Bedside Urine Glucose Negative Bedside Urine Bilirubin - Negative Bedside Urine Ketone - Negative Urine Specific [place] 1.015 Bedside Urine Occult Blood - Negative Bedside Urine pH 6.0 Bedside Urine Protein - Negative Bedside Urine Urobilinogen - Negative Bedside Urine Nitrite - Negative Bedside Urine Leukocytes - Negative Esterase Imaging Data CT scan - abdomen/pelvis: Radiologist's Impression: [address] [address] [address] Scan Report Signed Patient: Rekha Hernandez MR#: [id number] : 10/11/1938 Acct:[id number] Age/Sex: 85 / F Date of Service: 11/03/23 Loc: ED Accession Number: [id number] Procedure: CT angio head and neck Ordering Provider: Ab Javier MD PROCEDURE: CT ANGIO HEAD AND NECK INDICATIONS: Ataxia TECHNIQUE: After the administration of intravenous contrast, 1 mm thick sections acquired from the aortic arch through the [place] of [place]. 3-dimensional cgqcjst-pwnckdjsj-ahjzmehpyb (MIP) and/or volume rendering reformats were acquired of the central intracranial vasculature and neck separately. For radiation dose reduction, the following was used: automated exposure control, adjustment of mA and/or kV according to patient size. COMPARISON: None. FINDINGS: Image quality: Diagnostic. BRAIN: CSF spaces: Ventricles are normal in size and shape. Basal cisterns are patent. No extra-axial fluid collections. Brain: No significant abnormality of the brain can be seen. Skull and face: Calvarium and facial bones appear intact, without suspicious lesions. Orbits appear normal. Sinuses: Sinuses and mastoids are clear. HEAD CT ANGIOGRAPHY: Anterior circulation: Intracranial internal carotid arteries are normal in size and flow. The flow within the paired anterior cerebral arteries is normal and symmetric. The flow within the middle cerebral arteries is normal and symmetric. The anterior communicating artery is seen. No aneurysms are seen. Posterior circulation: Visualized portions of the vertebral arteries demonstrate normal caliber, and join to form a normal appearing basilar artery. Flow within the posterior cerebral arteries is normal and symmetric. No aneurysms are seen. NECK CT ANGIOGRAPHY: Carotid system: The great vessels demonstrate a conventional anatomy as they arise from the aortic arch. The origins of the common carotid arteries appear patent. The common carotid arteries demonstrate normal caliber and courses. The bifurcation regions are both widely patent. The internal carotid arteries demonstrate normal calibers and courses. Posterior circulation: The origins of the vertebral arteries both appear widely patent. The more superior extracranial portions of both vertebral arteries also demonstrate normal courses and calibers. They join to form a normal appearing basilar artery. Soft tissues: Visualized neck soft tissues demonstrate no suspicious abnormalities. Bones: No suspicious bony lesions. Visualized cervical spine appears normally aligned. IMPRESSION: No significant intracranial arterial abnormality is seen. No significant abnormality is seen within the arteries of the neck. Any quantitative measurements of stenosis were performed using NASCET criteria. Dictated by: Ethan Doty M.D. on 11/03/2023 at 14:46 Approved by: Ethan Doty M.D. on 11/03/2023 at 14:47 [facility] Narrative Medical decision making narrative: Patient here October 19, [address] imaging showed constipation versus ileus. Patient has history of and cholecystectomy. Patient states history of bowel obstruction as well. Possible history of diverticulosis diverticulitis. Patient is seen by primary care yesterday she states for follow up for that visit. Primary care told her that she had gastritis but no medications were started. Pain continues today from yesterday. It is sharp pain epigastric and left upper quadrant. Has had nausea but no vomiting. Daughter is driving. After history and exam CBC CMP lipase CT abdomen pelvis normal saline Zofran GI cocktail Protonix MDM CC: Abdominal pain Complicating co-morbidities: None Data collected from: Patient Medical records reviewed: October 19, 2023 ER visit here Differential considered: Includes but not limited to gastritis duodenitis bowel obstruction colitis diverticulitis Exam documented above, pertinent findings include: Tender left upper quadrant Lab Test results independently reviewed as above. Pertinent findings: WBC 9.2 hemoglobin 14.7 sodium 140 potassium 4.2 AST 28 ALT 25 lipase 70 EKG normal sinus rhythm rate 78 normal EKG Imaging studies independently reviewed: CT abdomen pelvis possible early bowel obstruction. This was not seen on October 19, 2023 Consultations: 3:[address] Recio, general surgery, no NG tube indicated this time but she will follow in consult, admit to hospitalist 5:[address] Crockett, hospitalist, who will see patient for admission Treatments: Normal saline Protonix Zofran GI cocktail Re-evaluations: Updated patient results. Understands need for admission Discussion: Appropriate for admission for bowel obstruction. General surgery has been consulted. Diagnosis: Small-bowel obstruction Discharge Plan Departure Patient Disposition: Admitted as Observation Clinical Impression: Small bowel obstruction Admit Date/Time: 11/03/23 17:06 Admit Provider: Adarsh Crockett
[2023-11-03] MEDS: PANTOPRAZOLE 40 MG VIAL IV (15:18)
[2023-11-03] MEDS: ONDANSETRON 4 MG/2 ML INJ IV ×2 (15:18→20:29)
[2023-11-03] MEDS: MAG HYDROX/ALUMINUM/SIMETH SUS 20 ML, LIDOCAINE VISCOUS 2% 15 ML PO (15:18)
[2023-11-03] MEDS: SODIUM CHLORIDE 0.9% 1,000 ML 1000 ML IV (15:20)
--- NOTE | 2023-11-03 17:42 | PM.HP.1 ---
History of Present Illness History of Present Illness Date Patient Seen: 11/03/23 Time Patient Seen: 17:43 Chief complaint: ABDOMINAL PAIN SENT BY PCP Narrative: This patient is a 53-year-old female who presented to the emergency department for abdominal pain. She has a history of and cholecystectomy. She also notes a history of previous bowel obstruction. In the emergency department CT imaging was obtained which was consistent with possible early SBO versus constipation or ileus. The patient also notes a history of diverticulosis. The patient was discussed with general surgery who recommended symptomatic treatment with NPO status, avoid and an NG tube and analgesia with IV fluids. In talking with her, her pain really began abruptly after eating dinner last night. The pain is described as top of the abdomen left greater than right. No radiation. The pain is mostly constant and not colicky. There is no radiation of pain to the shoulder or back. She did have a bowel movement yesterday and some flatus today. No vomiting, there is some nausea. He denies any urinary symptoms including hematuria or dysuria. No fevers or chills. [facility] Medical History History of melanoma Chronic thoracic back pain Mixed hyperlipidemia Sleep apnea (2015) Essential hypertension (~2018) BMI 40.0-44.9, adult Hypertension Surgical History Hx of cholecystectomy (11/04/19) History of bladder surgery Hx of section Family History Mother Liver failure Father Cancer Diabetes mellitus Hypertension Hyperlipidemia Brother Diabetes mellitus Hypertension Grandfather Diabetes mellitus Hypertension Grandmother Diabetes mellitus Hypertension Social History marital status: unknown details: single, one daughter household members: family and children occupational status: employed Smoking Status: Never smoker alcohol intake: current substance use type: does not use Meds Home Medications and Allergies Home Medications Medication Instructions Recorded Confirmed Type multivitamin with minerals (Daily 1 tab PO DAILY 12/07/21 11/03/23 History Multivitamin-Minerals tablet) gabapentin 300 mg capsule 600 mg (2 x 300 mg) PO BEDTIME 06/12/23 11/03/23 Rx NERVE PAIN #180 caps amlodipine 5 mg tablet 5 mg PO DAILY HTN #90 tabs 06/23/23 11/03/23 Rx cyclobenzaprine 10 mg tablet 10 mg PO TID PRN muscle spasm #30 09/27/23 11/03/23 Rx tabs duloxetine 20 mg capsule,delayed 40 mg (2 x 20 mg) PO DAILY #180 10/27/23 11/03/23 Rx release caps Allergies Allergy/AdvReac Type Severity Reaction Status Date / Time No Known Drug Allergies Allergy Verified 11/03/23 12:28 Review of Systems Review of Systems Narrative: All else reviewed and otherwise unremarkable except as noted in the history and physical. Exam Vital Signs (past 8 hours): - 11/03/23 12:23 11/03/23 12:26 11/03/23 12:26 Temperature 98.6 F Pulse Rate 89 84 Respiratory Rate 14 Blood Pressure 164/93 H 164/93 H Pulse Oximetry 97 96 Oxygen Delivery Method Room Air 11/03/23 12:29 11/03/23 12:29 11/03/23 12:30 Temperature Pulse Rate 91 H 88 Respiratory Rate 17 17 Blood Pressure 159/82 H Pulse Oximetry 98 98 Oxygen Delivery Method 11/03/23 12:30 11/03/23 13:00 11/03/23 13:00 Temperature Pulse Rate 81 Respiratory Rate 15 Blood Pressure 156/81 H 151/86 H Pulse Oximetry 97 Oxygen Delivery Method 11/03/23 13:30 11/03/23 13:30 11/03/23 14:00 Temperature Pulse Rate 81 79 Respiratory Rate 14 15 Blood Pressure 153/87 H Pulse Oximetry 98 99 Oxygen Delivery Method 11/03/23 14:00 11/03/23 14:30 11/03/23 14:30 Temperature Pulse Rate 79 Respiratory Rate 17 Blood Pressure 149/88 H 146/95 H Pulse Oximetry 99 Oxygen Delivery Method 11/03/23 15:00 11/03/23 15:12 11/03/23 15:12 Temperature Pulse Rate 93 H 88 Respiratory Rate 16 18 Blood Pressure 136/78 Pulse Oximetry 98 99 Oxygen Delivery Method 11/03/23 15:30 11/03/23 16:00 Temperature Pulse Rate 86 83 Respiratory Rate 17 19 Blood Pressure Pulse Oximetry 98 98 Oxygen Delivery Method Oxygen Delivery Method Room Air Narrative Exam Narrative: Mild discomfort, pleasant and with normal speech. She is alert and oriented. Normocephalic skull, pupils symmetric, EOMI, anicteric sclera. Oropharynx unremarkable. Neck is supple, normal trachea, no adenopathy. Lungs are clear with normal effort. Heart is regular without murmur. Abdomen is somewhat distended and tender more in the left upper quadrant than the right. The lower quadrants are unremarkable. She is have hyperactive bowel tones. No masses are palpated. Extremities are free of edema, good pedal pulses. Skin is free of rash or lesions, joints are unremarkable no swelling or deformities. Normal moving arms and legs, grossly normal cranial nerves. She has normal judgment. Objective Imaging CT scan - abdomen: Radiologist's impression: Early small bowel obstruction versus small bowel ileus, without colonic dilatation. This was not present 10/19/23. A mechanical etiology such as bowel hernia or torsion, or intussusception, is not seen. In such circumstances adhesion is the likely cause. Labs 11/03/23 12:30 11/03/23 12:30 Labs: Laboratory Results - last 24 hr 11/03/23 12:30 WBC 9.2 RBC 4.62 Hgb 14.7 Hct 42.4 MCV 91.7 MCH 31.9 MCHC 34.8 RDW 13.1 Plt Count 348 Neut % (Auto) 66.2 Lymph % (Auto) 21.5 L [place] % (Auto) 2.6 L Eos % (Auto) 9.3 H Baso % (Auto) 0.4 Neut # (Auto) 6100 Lymph # (Auto) 2000 [place] # (Auto) 200 Eos # (Auto) 900 H Baso # (Auto) 0 Sodium 140 Potassium 4.2 Chloride 104 Carbon Dioxide 25 BUN 14 Creatinine 0.73 Estimated GFR > 60 BUN/Creatinine Ratio 19.2 Glucose 94 Calcium 9.0 Total Bilirubin 0.6 AST 28 ALT 25 Alkaline Phosphatase 49 Total Protein 7.8 Albumin 4.5 Globulin 3.3 Albumin/Globulin Ratio 1.4 Lipase 70 Assessment & Plan Assessment & Plan narrative: 1. Possible early bowel obstruction versus ileus versus constipation. Present on admission and active. The case was discussed with Dr. Recio of General surgery with recommendations for conservative management. 2. Previous history of recurrent bowel obstruction, present on admission and active. 3. Essential hypertension, present on admission and active. 4. Sleep apnea, present on admission and active. 5. Hyperlipidemia, present on admission and active. 6. Obesity class 2, present on admission and active. 7. H/O melenoma. Plan: -case was discussed with General surgery in the emergency department. -recommendations were to avoid NG tube, nothing by mouth, IV fluids, analgesia and follow clinical course. -monitor blood pressure.- She is full resuscitation. Confirmed at time of admission. Time Spent With Patient Time with patient: 30 to 49 minutes with 50% spent counseling/coordinating care Quality MIPS - Admit I confirm the patient?s Advance Care Plan is present, Code status is documented, Surrogate decision maker is in patient?s record [If Yes, STOP here]: Yes The patient?s Advance Care plan is not present because I confirmed today that the patient does not wish or was not able to name a surrogate decision maker or provide an Advance Care Plan.: No MIPS - Meds 'Current medications' to include all prescriptions, [id number] products, herbals, cannabis/cannabidiol products, and vitamin/mineral/dietary (nutritional) supplements. I have utilized all available resources to obtain, update, or review the patient?s current medications. [If Yes, STOP here]: Yes
[2023-11-03] MEDS: DEXTROSE 5%-0.45% NS 1,000 ML 100 ML IV (18:23)
[2023-11-03] MEDS: MORPHINE 4 MG/ML INJ 3 MG IV (18:24)
[2023-11-04] VITALS (7 sets, daily range): BP systolic 123–147; BP diastolic 78–91; PULSE 65–85; RESP 16–22; TEMP 35.8–36.5; O2SAT 95–100
[2023-11-04] MEDS: MORPHINE 4 MG/ML INJ 3 MG IV ×2 (01:17→09:44)
[2023-11-04] MEDS: DEXTROSE 5%-0.45% NS 1,000 ML 100 ML IV ×2 (03:53→19:39)
[2023-11-04 06:37] LABS: Add Manual Diff / Slide Review NO; Basophils Absolute Auto 0 /uL (0-100); Basophils Percent Auto 0.1 % (0-2); Eosinophils Absolute Auto 400 /uL (0-450); Eosinophils Percent Auto 6.1 % (2-4); Hematocrit 39.3 % (36-46); Hemoglobin 13.8 g/dL (12.0-16.0); Lymphocytes Absolute Auto 1700 /uL (1100-4500); Lymphocytes Percent Auto 24.1 % (25-40); Mean Corpuscular HGB Conc 35.1 % (30-36); Mean Corpuscular Volume 91.2 fL (80-100); Monocytes Absolute Auto 500 /uL (0-900); Monocytes Percent Auto 6.8 % (3-14); Neutrophils Absolute Auto 4400 /uL (1500-7000); Neutrophils Percent Auto 62.9 % (50-75); Platelet Count 301 X10^3/uL (150-400); Red Blood Cell Count 4.31 X10^6/uL (4.0-5.2); White Blood Cell Count 7.1 X10^3/uL (4.5-11.0)
[2023-11-04 06:43] LABS: BUN Creatinine Ratio 17.6 (6-22); Blood Urea Nitrogen 12 mg/dL (7-17); Carbon Dioxide 24 mmol/L (22-32); Chloride 105 mmol/L (98-107); Estimated Glomerular Filt Rate > 60 mL/min (>60); Glucose 96 mg/dL (70-100); HEMOLYSIS 15 (0-50); Potassium 3.5 mmol/L (3.4-5.1); Sodium 136 mmol/L (137-145)
--- NOTE | 2023-11-04 09:04 | P.PN_ITS ---
Subjective Subjective Interval history: Patient still not passing gas, but she feels like the pain and distention is somewhat improved. No vomiting, has mild appetite. Exam Vital Signs (past 8 hours): - 11/04/23 04:00 11/04/23 08:00 Temperature 96.5 F L 96.9 F L Pulse Rate 82 82 Respiratory Rate 17 22 Blood Pressure 147/79 H 141/84 H Pulse Oximetry 96 96 Oxygen Flow Rate 0 0 Oxygen Delivery Method Room Air Oxygen Flow Rate 0 Narrative Exam Narrative: Mild discomfort, pleasant and with normal speech. She is alert and oriented. Normocephalic skull, pupils symmetric, EOMI, anicteric sclera. Oropharynx unremarkable. Neck is supple, normal trachea, no adenopathy. Lungs are clear with normal effort. Heart is regular without murmur. Abdomen is somewhat distended and tender more in the left upper quadrant than the right. The lower quadrants are unremarkable. She is have hyperactive bowel tones. No masses are palpated. Extremities are free of edema, good pedal pulses. Skin is free of rash or lesions, joints are unremarkable no swelling or deformities. Normal moving arms and legs, grossly normal cranial nerves. She has normal judgment. Objective Labs 11/04/23 05:35 11/04/23 05:35 Labs: Laboratory Results - last 24 hr 11/03/23 11/04/23 12:30 05:35 WBC 9.2 7.1 RBC 4.62 4.31 Hgb 14.7 13.8 Hct 42.4 39.3 MCV 91.7 91.2 MCH 31.9 32.0 MCHC 34.8 35.1 RDW 13.1 13.0 Plt Count 348 301 Neut % (Auto) 66.2 62.9 Lymph % (Auto) 21.5 L 24.1 L [place] % (Auto) 2.6 L 6.8 Eos % (Auto) 9.3 H 6.1 H Baso % (Auto) 0.4 0.1 Neut # (Auto) 6100 4400 Lymph # (Auto) 2000 1700 [place] # (Auto) 200 500 Eos # (Auto) 900 H 400 Baso # (Auto) 0 0 Sodium 140 136 L Potassium 4.2 3.5 Chloride 104 105 Carbon Dioxide 25 24 BUN 14 12 Creatinine 0.73 0.68 Estimated GFR > 60 > 60 BUN/Creatinine Ratio 19.2 17.6 Glucose 94 96 Calcium 9.0 8.0 L Total Bilirubin 0.6 AST 28 ALT 25 Alkaline Phosphatase 49 Total Protein 7.8 Albumin 4.5 Globulin 3.3 Albumin/Globulin Ratio 1.4 Lipase 70 PFSH Medical History History of melanoma Chronic thoracic back pain Mixed hyperlipidemia Sleep apnea (2015) Essential hypertension (~2019) BMI 40.0-44.9, adult Hypertension Surgical History Hx of cholecystectomy (11/04/19) History of bladder surgery Hx of section Family History Mother Liver failure Father Cancer Diabetes mellitus Hypertension Hyperlipidemia Brother Diabetes mellitus Hypertension Grandfather Diabetes mellitus Hypertension Grandmother Diabetes mellitus Hypertension Social History marital status: unknown details: single, one daughter household members: family and children occupational status: employed Smoking Status: Never smoker alcohol intake: current substance use type: does not use Assessment & Plan Assessment & Plan narrative: 1. Possible early bowel obstruction versus ileus versus constipation. Present on admission and active. The case was discussed with Dr. Recio of General surgery with recommendations for conservative management. 2. Previous history of recurrent bowel obstruction, present on admission and active. 3. Essential hypertension, present on admission and active. 4. Sleep apnea, present on admission and active. 5. Hyperlipidemia, present on admission and active. 6. Obesity class 2, present on admission and active. 7. H/O melenoma. Plan: -case was discussed with General surgery in the emergency department. -recommendations were to avoid NG tube, nothing by mouth, IV fluids, analgesia and follow clinical course. -monitor blood pressure She is full resuscitation. Confirmed at time of admission. Time Spent With Patient Time with patient: 30 to 49 minutes with 50% spent counseling/coordinating care Quality VTE Deep Vein Thrombosis/Pulmonary Embolism Present on Admission: No
--- NOTE | 2023-11-04 09:31 | CM.DANOTE ---
DCP: Case received, EMR reviewed and met with patient. [id number], was also at bedside. Introduced self and role. Was able to complete DCP assessment based upon information currently available. Patient is a 53 year old female who admitted yesterday afternoon to the care of the hospitalist team. PCP: Dr. Cook. Payer: confirmed: Commercial Insurance. Patient came to the hospital via private vehicle secondary to complaints of abdominal pain. Patient had been here in the ER recently for the same symptoms. Patient indicated, pain was sharp. She also indicated that her primary provider had indicated that she had gastritis, but no medications were given. Patient had been advised to come to the ER by her provider. Patient diagnosed with early small bowel obstruction versus small bowel ileus. She will have surgery consult today. Met with patient in her room. She was sitting up in bed, [id number] at bedside. Confirmed that she resides in [place], she is single, and employed at [employer]. Confirmed also that she still sees Dr. Cook as her primary care provider. P: DCP to continue to follow. Patient should be able to go home when deemed medically stable. Ryann Ferris RN/Department Head Discharge Planning/Care Management CM Discharge Assessment Start: 11/04/23 09:30 Freq: Status: Active Protocol: Document 11/04/23 09:30 (Rec: 11/04/23 09:31 [id number]) Discharge Planning Assessment Assigned [employer] Crewmember Ryann Ferris RN/Department Head Advance Directives? No History Provided By Patient,Medical Record Prior Living Arrangements House Household Members family,children Type of transporation used prior to Drives own vehicle admit Independent with ADL's Yes Is patient alert and oriented? Yes Caregiver for Another No Barriers to Discharge No Discharge Plan Home Transportation Arrangement Family Referrals Initiated None needed Whiteboard Updated in Patient Room with Yes name and ext. # of [employer] Crewmember Review Status In Process Next Review Type Continued Stay Review
[2023-11-04] MEDS: POTASSIUM CHLORIDE IN WATER 10 MEQ/100 ML PIGGYBACK 100 MEQ IV (09:43)
[2023-11-04] MEDS: POTASSIUM CHLORIDE 20 MEQ TAB PO (11:16)
--- NOTE | 2023-11-04 15:33 | PM.CALLCOV.1 ---
Call Coverage Note Note Date of Patient Contact: 11/04/23 Narrative of Care Provided: Pt discussed with ED and primary. Mild dilation of SB, H/o SBO. Recommend conservative treatment. I will see in am along with abd Xray if no improvement and consider gastrografin challenge if no large volume emesis occurs overnight.
--- NOTE | 2023-11-05 | DI.RAD.S_ITS ---
PROCEDURE: XR GASTROGRAFIN CHALLENGE COMPARISON: CT abdomen pelvis without contrast 11/03/2023. INDICATIONS: SBO FINDINGS: Contrast opacifies the small bowel and portion of the ascending colon. No definite dilated loops of small bowel. IMPRESSION: Contrast opacification of small bowel and portion of right ascending colon. No definite dilated loops of small bowel to suggest obstruction. Approved by: Frances Barrientos M.D. on 11/05/2023 at 14:11
[2023-11-05] MEDS: MORPHINE 4 MG/ML INJ 3 MG IV ×3 (01:28→20:36)
[2023-11-05 03:25] VITALS: BP 129/69; PULSE 89; RESP 16; TEMP 35.9; O2SAT 93
[2023-11-05] MEDS: DEXTROSE 5%-0.45% NS 1,000 ML 100 ML IV ×2 (05:28→18:00)
--- NOTE | 2023-11-05 05:34 | DI.RAD.S_ITS ---
PROCEDURE: XR ABDOMEN 1V INDICATIONS: SBO TECHNIQUE: One view of the abdomen acquired. COMPARISON: None. FINDINGS: Surgical changes and devices: Cholecystectomy clips. Bowel: There is small and large bowel gas present. Bowel loops appear fairly normal caliber. No large quantity of pneumoperitoneum evident on the supine image. Soft tissues: No suspicious abdominal calcifications. Visualized solid organ contours appear normal in size. Bones: No suspicious bony lesions. IMPRESSION: Nonspecific, but nonobstructive bowel gas pattern on the supine view. Dictated by: Destiny Roblero M.D. on 11/05/2023 at 8:35 Approved by: Destiny Roblero M.D. on 11/05/2023 at 8:36
[2023-11-05 08:00] VITALS: BP 124/67; PULSE 85; RESP 16; TEMP 36.8; O2SAT 97
--- NOTE | 2023-11-05 08:30 | PM.PN.1 ---
Subjective Subjective Interval history: Not much improved overnight. Had 2 small passages of gas but nothing else. Having some increased pain in abdomen vs yesterday. Gen surg to do gastrografin. Exam Vital Signs (past 8 hours): - 11/05/23 03:25 Temperature 96.6 F L Pulse Rate 89 Respiratory Rate 16 Blood Pressure 129/69 Pulse Oximetry 93 Oxygen Flow Rate 0 Oxygen Delivery Method Room Air Oxygen Flow Rate 0 Narrative Exam Narrative: Mild discomfort, pleasant and with normal speech. She is alert and oriented. Normocephalic skull, pupils symmetric, EOMI, anicteric sclera. Oropharynx unremarkable. Neck is supple, normal trachea, no adenopathy. Lungs are clear with normal effort. Heart is regular without murmur. Abdomen is somewhat distended and tender more in the left upper quadrant than the right. The lower quadrants are unremarkable. She is have hyperactive bowel tones. No masses are palpated. Extremities are free of edema, good pedal pulses. Skin is free of rash or lesions, joints are unremarkable no swelling or deformities. Normal moving arms and legs, grossly normal cranial nerves. She has normal judgment. Objective Labs 11/05/23 09:23 11/05/23 09:23 [facility] Medical History History of melanoma Chronic thoracic back pain Mixed hyperlipidemia Sleep apnea (2015) Essential hypertension (~2018) BMI 40.0-44.9, adult Hypertension Surgical History Hx of cholecystectomy (11/04/19) History of bladder surgery Hx of section Family History Mother Liver failure Father Cancer Diabetes mellitus Hypertension Hyperlipidemia Brother Diabetes mellitus Hypertension Grandfather Diabetes mellitus Hypertension Grandmother Diabetes mellitus Hypertension Social History marital status: unknown details: single, one daughter household members: family and children occupational status: employed Smoking Status: Never smoker alcohol intake: current substance use type: does not use Assessment & Plan Assessment & Plan narrative: 1. Possible early bowel obstruction versus ileus versus constipation. Present on admission and active. The case was discussed with Dr. Recio of General surgery with recommendations for conservative management. 2. Previous history of recurrent bowel obstruction, present on admission and active. 3. Essential hypertension, present on admission and active. 4. Sleep apnea, present on admission and active. 5. Hyperlipidemia, present on admission and active. 6. Obesity class 2, present on admission and active. 7. H/O melenoma. Plan: -likely gastrografin challenge with gen surg today -monitor blood pressure She is full resuscitation. Confirmed at time of admission. Dispo: Pending improvement in SBO. 2 days maybe. Time Spent With Patient Time with patient: 30 to 49 minutes with 50% spent counseling/coordinating care Quality VTE Deep Vein Thrombosis/Pulmonary Embolism Present on Admission: No
[2023-11-05 09:56] LABS: Add Manual Diff / Slide Review NO; Basophils Absolute Auto 100 /uL (0-100); Basophils Percent Auto 0.6 % (0-2); Eosinophils Absolute Auto 900 /uL (0-450); Eosinophils Percent Auto 10.5 % (2-4); Hemoglobin 14.2 g/dL (12.0-16.0); Lymphocytes Absolute Auto 1600 /uL (1100-4500); Lymphocytes Percent Auto 19.5 % (25-40); Mean Corpuscular HGB Conc 34.6 % (30-36); Mean Corpuscular Hemoglobin 31.9 PG (26-34); Monocytes Absolute Auto 300 /uL (0-900); Monocytes Percent Auto 3.5 % (3-14); Neutrophils Absolute Auto 5500 /uL (1500-7000); Neutrophils Percent Auto 65.9 % (50-75); Platelet Count 278 X10^3/uL (150-400); Red Blood Cell Count 4.46 X10^6/uL (4.0-5.2); Red Cell Distribution Width 13.3 % (11.6-14.8); White Blood Cell Count 8.3 X10^3/uL (4.5-11.0)
[2023-11-05 10:32] LABS: BUN Creatinine Ratio 7.7 (6-22); Blood Urea Nitrogen 5 mg/dL (7-17); Calcium 8.5 mg/dL (8.4-10.2); Carbon Dioxide 22 mmol/L (22-32); Chloride 107 mmol/L (98-107); Estimated Glomerular Filt Rate > 60 mL/min (>60); Glucose 96 mg/dL (70-100); HEMOLYSIS 29 (0-50); Potassium 3.7 mmol/L (3.4-5.1); Sodium 140 mmol/L (137-145)
--- NOTE | 2023-11-05 10:45 | CM.DPNOTE ---
DCP Note NIPPLE MAKER reviewed EMR. Per provider in morning rounds, general surg to consult today. Pending if surg is needed. Per hospitalist, pt has two small passages of gas overnight. POC pending general surgery input. Likely home when stable, no CM needs identified at this time. CM team will follow as needed for transport need. SARAH José
--- NOTE | 2023-11-05 10:56 | PM.CN ---
History of Present Illness Consult details Date Patient Seen: 11/05/23 Time Patient Seen: 10:57 Chief complaint: ABDOMINAL PAIN SENT BY PCP Reason for consult: SBO Requesting provider: Thor Dougherty Narrative: Abdominal pain for 24hrs, h/o SBO with resolved w/o surgery. Past abdominal surgery are Harriet and hysterectomy. Nausea, no emesis, some flatus, last BM 2 days ago. On variant of Ozempic with a 40lb weight loss. Last dose on Monday. Pain better today, was generalized and constant, sharp. Also complains of chronic back pain in left thoracic area. Meds Home Medications and Allergies Home Medications Medication Instructions Recorded Confirmed Type multivitamin with minerals (Daily 1 tab PO DAILY 12/07/21 11/03/23 History Multivitamin-Minerals tablet) gabapentin 300 mg capsule 600 mg (2 x 300 mg) PO BEDTIME 06/12/23 11/03/23 Rx NERVE PAIN #180 caps amlodipine 5 mg tablet 5 mg PO DAILY HTN #90 tabs 06/23/23 11/03/23 Rx cyclobenzaprine 10 mg tablet 10 mg PO TID PRN muscle spasm #30 09/27/23 11/03/23 Rx tabs duloxetine 20 mg capsule,delayed 40 mg (2 x 20 mg) PO DAILY #180 10/27/23 11/03/23 Rx release caps Allergies Allergy/AdvReac Type Severity Reaction Status Date / Time No Known Drug Allergies Allergy Verified 11/03/23 12:28 Exam Vital Signs (past 8 hours): - 11/05/23 03:25 11/05/23 08:00 Temperature 96.6 F L 98.2 F Pulse Rate 89 85 Respiratory Rate 16 16 Blood Pressure 129/69 124/67 Pulse Oximetry 93 97 Oxygen Flow Rate 0 0 Oxygen Delivery Method Room Air Oxygen Flow Rate 0 Const General: cooperative and comfortable Nutritional Appearance: overweight Orientation: alert, awake and oriented x3 HENMT Head: normal to inspection, normocephalic and atraumatic Eyes General: appearance normal, both eyes and all related structures Sclera: sclerae normal Neck Neck: trachea midline and No JVD Chest Chest: normal inspection of the chest Resp Effort & Inspection: normal respiratory effort and able to speak in complete sentences Cardio Rate: regular rate Rhythm: regular rhythm GI Palpation: soft and No tender Other: Abd series this morning shows no gastric dilation Skin General: elasticity normal and turgor normal Neuro General: patient alert, patient awake and patient oriented x3 Cranial Nerves: tongue midline Speech: speech normal Psych Appearance: grossly normal Mental Status: mental status grossly normal Judgment: judgment good Objective Labs 11/05/23 09:23 11/05/23 09:23 Labs: Laboratory Results - last 24 hr 11/05/23 09:23 WBC 8.3 RBC 4.46 Hgb 14.2 Hct 41.0 MCV 92.0 MCH 31.9 MCHC 34.6 RDW 13.3 Plt Count 278 Neut % (Auto) 65.9 Lymph % (Auto) 19.5 L [place] % (Auto) 3.5 Eos % (Auto) 10.5 H Baso % (Auto) 0.6 Neut # (Auto) 5500 Lymph # (Auto) 1600 [place] # (Auto) 300 Eos # (Auto) 900 H Baso # (Auto) 100 Sodium 140 Potassium 3.7 Chloride 107 Carbon Dioxide 22 BUN 5 L Creatinine 0.65 Estimated GFR > 60 BUN/Creatinine Ratio 7.7 Glucose 96 Calcium 8.5 [facility] Medical History History of melanoma Chronic thoracic back pain Mixed hyperlipidemia Sleep apnea (2014) Essential hypertension (~2018) BMI 40.0-44.9, adult Hypertension Surgical History Hx of cholecystectomy (11/04/19) History of bladder surgery Hx of section Family History Mother Liver failure Father Cancer Diabetes mellitus Hypertension Hyperlipidemia Brother Diabetes mellitus Hypertension Grandfather Diabetes mellitus Hypertension Grandmother Diabetes mellitus Hypertension Social History marital status: unknown details: single, one daughter household members: family and children occupational status: employed Tobacco & Substance Use Smoking Status: Never smoker alcohol intake: current substance use type: does not use Assessment & Plan Assessment & Plan narrative: SBO likely adhesive disease Chronic thoracic back pain obesity with BMI 39.4 Plan: Gastrografin challenge PT consult for TENS treatment of back Time Spent With Patient Time with patient: 30 to 49 minutes with 50% spent counseling/coordinating care
[2023-11-05] MEDS: GABAPENTIN 300 MG CAPSULE PO ×3 (11:27→20:36)
[2023-11-05] MEDS: CELECOXIB 200 MG CAPSULE PO ×2 (11:27→20:36)
[2023-11-05] MEDS: DULOXETINE 20 MG CAPSULE 40 MG PO (11:27)
--- NOTE | 2023-11-05 12:33 | PT.IIE ---
Surgical History (Last Reviewed 11/05/23 @ 11:01 by Anali Recio MD) History of bladder surgery Hx of section Hx of cholecystectomy (11/04/19) Medical History (Last Reviewed 11/05/23 @ 11:01 by Anali Recio MD) BMI 40.0-44.9, adult Chronic thoracic back pain Essential hypertension (~2018) History of melanoma Hypertension Mixed hyperlipidemia Sleep apnea (2015) Physical Therapy Inpatient Evaluation/Re-Eval M1 PT/OT-IP Prior Functional Status Start: 11/05/23 12:26 Freq: NEEDED Status: Active Protocol: Document 11/05/23 12:08 MB (Rec: 11/05/23 12:32 MB [id number]) Medical Review Prior Functional Status Medical History Reviewed Yes Diet/Fluid Consistency Regular Communication WNLs Mobility and Gait I Activities of Daily Living and IADL's I Prior Functional Level (Other details) I Social History Household Members family,children Living Arrangements House Number of Floors (Floors) One Floor Number of Stairs To Enter/Railing? No steps to enter Home Environment Standard Height Toilet,Walk in Shower,Tub/Shower Home Equipment Tub Transfer Bench,Grab Bars In Shower Employment Status [employer] Employed M2 PT-IP Current Condition Start: 11/05/23 12:26 Freq: NEEDED Status: Active Protocol: Document 11/05/23 12:08 MB (Rec: 11/05/23 12:32 MB [id number]) Physical Therapy Current Condition Current Condition Evaluation Date 11/05/23 Treatment Diagnosis Work-up for constipation M3 PT-IP Subjective Start: 11/05/23 12:26 Freq: NEEDED Status: Active Protocol: Document 11/05/23 12:08 MB (Rec: 11/05/23 12:32 MB [id number]) Subjective Physical Therapy Visit Type Type Initial Evaluation Visit Start Time 12:08 Visit Stop Time 12:28 Number of VP GENETIC Visits 0 Physical Therapy Visit Comments Patient Comments I'm okay to do it now. Therapy Pain Assessment Pain When Pain Assessed At Rest Pain Present Pain Present Pain Reported Location Back Intensity 3 Scale Used CagleLeninDinh (Faces) Description Chronic M4 PT-IP Mobility and Gait Start: 11/05/23 12:26 Freq: NEEDED Status: Active Protocol: Document 11/05/23 12:08 MB (Rec: 11/05/23 12:32 MB [id number]) PT-Bed Mobility Assessment Rolling Level of Assist Independent Supine to Sit Supine to Sit Independent Sit to Supine Sit to Supine Independent Scooting Scooting to Edge of Bed Independent Scooting Up and Down in Bed Independent PT-Transfer Assessment Sit to and From Stand Sit to and from Stand Independent,Use of Upper Extremities Equipment Transfer Assistive Device Gait Belt Orthotic/Prosthetic Devices or Brace: No Transfer Ability Level of Assist Independent,Use of Upper Extremities Gait Assessment Gait Gait Assistance Required: Independent Distance (Feet) 200 Assistive Devices Assistive Device None,Gait Belt Gait Deviations General Gait Pattern Antalgic Factors Limiting Gait Function Factors Limiting Gait Function Pain Comments Gait Comments Pt reports long history of back pain and she is interested in OPPT referral PT-Balance Assessment Sitting Balance and Reactions Static Sitting Balance Ability Normal Standing Balance and Reactions Static Standing Balance Ability Normal Dynamic Standing Balance Ability Normal M5 PT-IP Objective Assessments Start: 11/05/23 12:26 Freq: NEEDED Status: Active Protocol: Document 11/05/23 12:08 MB (Rec: 11/05/23 12:32 [id number]) Orientation Orientation/Cognition Level of Alertness Alert Orientation Name,Age,Birthday,Month,Date, Year,Day of Week,Place, Situation Language Function Ability No Deficits Noted Safety Awareness Understands Safety Issues Memory Description No Deficits Noted Gross Range of Motion Upper Extremity ROM Assessment Within Functional Limits Lower Extremity ROM Assessment Within Functional Limits Strength Upper Extremity Strength Assessment Within Functional Limits Lower Extremity Strength Assessment Within Functional Limits M6 PT-IP Treatment Start: 11/05/23 12:26 Freq: NEEDED Status: Active Protocol: Document 11/05/23 12:08 MB (Rec: 11/05/23 12:32 MB [id number]) Physical Therapy Treatment Education Education Provided Safety M7 PT-IP Assessment and Plan Start: 11/05/23 12:26 Freq: NEEDED Status: Active Protocol: Document 11/05/23 12:08 MB (Rec: 11/05/23 12:32 [id number]) PT Summary Assessment and Plan Potential Rehabilitation Potential Good Status of Condition at Evaluation Evolving Summary Impairments Pain Progress Towards Goals Progressing Toward Goals,Safe For Discharge Assessment Summary Pt is a 53 y/o female who reports history of chronic back pain that affects her mobility. She is open to education about OPPT at d/c. She is going to have a gastric study within the hour to determine the root of her GI symptoms/constipation. She is I with transfers, gait and bed mobility. PT does assist with IV and so recommend one person nsg assistance when pt is up d/t pain, medication and IV. No further acute PT needs . Frequency of Treatment Frequency Of Treatment Discharge Weight Bearing Status Weight Bearing Status Weight Bear as Tolerated Recommendations To Nursing Amount of Assist Needed Standby Assistance,1 Person Assist Discharge Recommendations PT Discharge Recommendations Home with Assistance, Outpatient PT Transportation Needs at Discharge Private Vehicle
[2023-11-05 16:00] VITALS: BP 112/45; PULSE 75; RESP 16; TEMP 36.6; O2SAT 95
[2023-11-05 20:00] VITALS: BP 118/75; PULSE 84; RESP 16; TEMP 36.5; O2SAT 98
[2023-11-06 00:06] VITALS: BP 126/72; PULSE 72; RESP 16; TEMP 36.2; O2SAT 96
[2023-11-06] MEDS: DEXTROSE 5%-0.45% NS 1,000 ML 100 ML IV (03:24)
[2023-11-06 03:49] VITALS: BP 125/70; PULSE 76; RESP 16; TEMP 36.2; O2SAT 94
[2023-11-06 08:00] VITALS: BP 130/72; PULSE 78; RESP 14; TEMP 36.4; O2SAT 97
[2023-11-06] MEDS: DULOXETINE 20 MG CAPSULE 40 MG PO (08:13)
[2023-11-06] MEDS: GABAPENTIN 300 MG CAPSULE PO (08:14)
[2023-11-06] MEDS: CELECOXIB 200 MG CAPSULE PO (08:14)
--- NOTE | 2023-11-06 09:28 | P.DS_ITS ---
History of Present Illness History of Present Illness Date Patient Seen: 11/06/23 Time Patient Seen: 09:28 Chief complaint: ABDOMINAL PAIN SENT BY PCP Narrative: Per admitting provider, This patient is a 53-year-old female who presented to the emergency department for abdominal pain. She has a history of and cholecystectomy. She also notes a history of previous bowel obstruction. In the emergency department CT imaging was obtained which was consistent with possible early SBO versus constipation or ileus. The patient also notes a history of diverticulosis. The patient was discussed with general surgery who recommended symptomatic treatment with NPO status, avoid and an NG tube and analgesia with IV fluids. In talking with her, her pain really began abruptly after eating dinner last night. The pain is described as top of the abdomen left greater than right. No radiation. The pain is mostly constant and not colicky. There is no radiation of pain to the shoulder or back. She did have a bowel movement yesterday and some flatus today. No vomiting, there is some nausea. He denies any urinary symptoms including hematuria or dysuria. No fevers or chills. Discharge Providers Provider Date of admission: 11/03/23 17:06 Discharge Date: 11/06/23 Primary care physician: Dima Cook MD Consults: 11/04/23 09:03 Consult to General Surgery Routine Comment: Consulting Provider: Anali Recio Reason for consultation: early SBO Has provider been notified: Yes 11/05/23 11:05 Consult to Physical Therapy Evaluate & Treat Comment: TENS treatment for thoracic back pain Physician Instructions: Evaluate and Treat Discharge provider: Rashaun Heath DO Summary Hospital Course Discharge Diagnosis: 1. Possible early bowel obstruction versus ileus versus constipation. Present on admission, improved 2. Previous history of recurrent bowel obstruction, present on admission and active. 3. Essential hypertension, present on admission and active. 4. Sleep apnea, present on admission and active. 5. Hyperlipidemia, present on admission and active. 6. Obesity class 2, present on admission and active. 7. H/O melenoma. Hospital Course: 53 year old female with PMH of bowel obstruction, HTN, BABS, HLD, obesity admitted with possible bowel obstruction. She was managed conservatively and had return of bowel function after gastrograffin small bowel follow through. She was able to tolerate a diet and was discharged home after resolution of her likely adhesive bowel obstruction. No medication changes are recommended at discharge. Time Spent with Patient Time spent: Less than 30 minutes Exam Vital Signs (past 8 hours): - 11/06/23 03:49 Temperature 97.2 F L Pulse Rate 76 Respiratory Rate 16 Blood Pressure 125/70 Pulse Oximetry 94 Oxygen Flow Rate 0 Oxygen Delivery Method Room Air Oxygen Flow Rate 0 Const General: cooperative and comfortable Nutritional Appearance: overweight Orientation: alert, awake and oriented x3 HENMT Head: normal to inspection, normocephalic and atraumatic Eyes General: appearance normal, both eyes and all related structures Sclera: sclerae normal Neck Neck: trachea midline and No JVD Chest Chest: normal inspection of the chest Resp Effort & Inspection: normal respiratory effort and able to speak in complete sentences Cardio Rate: regular rate Rhythm: regular rhythm GI Palpation: soft and No tender Other: Abd series this morning shows no gastric dilation Skin General: elasticity normal and turgor normal Neuro General: patient alert, patient awake and patient oriented x3 Cranial Nerves: tongue midline Speech: speech normal Psych Appearance: grossly normal Mental Status: mental status grossly normal Judgment: judgment good Objective Labs 11/05/23 09:23 11/05/23 09:23 Labs: Laboratory Results - last 24 hr 11/05/23 09:23 WBC 8.3 RBC 4.46 Hgb 14.2 Hct 41.0 MCV 92.0 MCH 31.9 MCHC 34.6 RDW 13.3 Plt Count 278 Neut % (Auto) 65.9 Lymph % (Auto) 19.5 L [place] % (Auto) 3.5 Eos % (Auto) 10.5 H Baso % (Auto) 0.6 Neut # (Auto) 5500 Lymph # (Auto) 1600 [place] # (Auto) 300 Eos # (Auto) 900 H Baso # (Auto) 100 Sodium 140 Potassium 3.7 Chloride 107 Carbon Dioxide 22 BUN 5 L Creatinine 0.65 Estimated GFR > 60 BUN/Creatinine Ratio 7.7 Glucose 96 Calcium 8.5 PFSH Medical History History of melanoma Chronic thoracic back pain Mixed hyperlipidemia Sleep apnea (2014) Essential hypertension (~2018) BMI 40.0-44.9, adult Hypertension Surgical History Hx of cholecystectomy (11/04/19) History of bladder surgery Hx of section Family History Mother Liver failure Father Cancer Diabetes mellitus Hypertension Hyperlipidemia Brother Diabetes mellitus Hypertension Grandfather Diabetes mellitus Hypertension Grandmother Diabetes mellitus Hypertension Social History marital status: unknown details: single, one daughter household members: family and children occupational status: employed Smoking Status: Never smoker alcohol intake: current substance use type: does not use Discharge Plan Discharge Plan Patient Disposition: Home Provider Discharge Comment: You were admitted to the hospital with a bowel obstruction which resolved without need for surgery. Please follow up with your primary care provider as previously scheduled, no need for urgent review at this time. You may want to hold your amlodipine for a few more days, if you do please continue to check your BP at home and restart at home if SBP is generally >140. Discharge orders & Medications Prescriptions: New celecoxib 200 mg capsule 200 mg PO BID PRN (Reason: pain) 30 Days Qty: 60 0RF Continued gabapentin 300 mg capsule 600 mg PO BEDTIME Qty: 180 3RF amlodipine 5 mg tablet 5 mg PO DAILY Qty: 90 3RF cyclobenzaprine 10 mg tablet 10 mg PO TID PRN (Reason: muscle spasm) Qty: 30 1RF duloxetine 20 mg capsule,delayed release(DR/EC) 40 mg PO DAILY Qty: 180 3RF Daily Multivitamin-Minerals Tablet 1 tab PO DAILY Follow up/Referrals: Dima Cook MD [Primary Care Provider] - Diet/Activity/Treatments Diet: Diet as Tolerated and Regular Activity: As tolerated no restrictions Visit Report/Discharge Packet Instructions: DI for Small Bowel Obstruction Stand Alone Forms: Patient Portal/API, Stroke Signs & Symptoms Discharge Data Primary Care Provider: Dima Cook V Quality VTE Deep Vein Thrombosis/Pulmonary Embolism Present on Admission: No
--- NOTE | 2023-11-06 10:13 | CM.DPNOTE ---
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 Per provider in morning rounds, pt's SBO resolved itself. Pt to dc home today. THIMBLE PRESS OPERATOR entered room and introduced self and role. Pt resting in bed. Pt denies any CM needs and is eager to dc home. 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 Plan: home today, no CM needs. CM team will follow as needed. SARAH José
--- NOTE | 2023-11-06 12:16 | PC.NURSE ---
Discharge Note Patient A&O, VSS, RA, no complaints of pain/discomfort. Discharge packet reviewed with patient, all questions/concerns addressed. PIV discontinued. Patient able to dress self and pack all belongings. Patient reminded to hot die picker prescription at preferred pharmacy. Patient taken down to POV accompanied by family member.
== END 2023-11-06 11:30 | disposition home or self-care (01) | DRG 390 ==
LOC: ED 15:48 → AC 11-04 01:38
PROVIDERS: Admitting Provider Hospitalist; Emergency Provider Emergency Medicine; Family Provider Family Medicine; PCP Internal Medicine; Referring Provider Emergency Medicine; Visit Provider Hospitalist
DX: K56.50 Intestinal adhesions [bands], unspecified as to partial versus complete obstruction (principal); I10 Essential (primary) hypertension; G47.30 Sleep apnea, unspecified; E78.5 Hyperlipidemia, unspecified; E66.9 Obesity, unspecified; M54.6 Pain in thoracic spine; G89.29 Other chronic pain; Z68.39 Body mass index [BMI] 39.0-39.9, adult
CPT/HCPCS: 36415; 74018; 74177; 80048; 80053; 81003; 81025; 83690; 85025; 93005; 93010; 96374; 96375; 97161; 99232; 99284; 99285; C9113; J2270; J2405; Q9967

== ENCOUNTER 2023-12-25 17:52 | Emergency (ER) | payer OTHER, SELFPAY ==
[2023-11-03 18:02] VITALS: BMI 39.4
[2023-12-25 18:25] VITALS: BP 140/86; PULSE 76; RESP 16; TEMP 37.2; O2SAT 97; BMI 40.6
[2023-12-25 21:16] LABS: Add Manual Diff / Slide Review NO; Basophils Absolute Auto 100 /uL (0-100); Eosinophils Absolute Auto 200 /uL (0-450); Eosinophils Percent Auto 2.7 % (2-4); Hematocrit 39.9 % (36-46); Hemoglobin 13.9 g/dL (12.0-16.0); Lymphocytes Absolute Auto 3000 /uL (1100-4500); Lymphocytes Percent Auto 34.8 % (25-40); Mean Corpuscular HGB Conc 34.9 % (30-36); Mean Corpuscular Hemoglobin 32.5 PG (26-34); Mean Corpuscular Volume 93.1 fL (80-100); Monocytes Absolute Auto 300 /uL (0-900); Monocytes Percent Auto 3.8 % (3-14); Neutrophils Absolute Auto 5000 /uL (1500-7000); Neutrophils Percent Auto 57.7 % (50-75); Platelet Count 340 X10^3/uL (150-400); Red Blood Cell Count 4.28 X10^6/uL (4.0-5.2); Red Cell Distribution Width 12.3 % (11.6-14.8); White Blood Cell Count 8.7 X10^3/uL (4.5-11.0)
--- NOTE | 2023-12-25 21:28 | ED.BACK ---
HPI - Back Pain/Injury General Chief Complaint: Back Pain/Injury Stated Complaint: severe back pain, sharp back when urinating Time Seen by Provider: 12/25/23 20:40 Source: patient Mode of arrival: Ambulatory History of Present Illness HPI Narrative: Patient is a 53-year-old female who is here for evaluation of left-sided flank/back discomfort. She states that it actually has been hurting for several days and just recently started to hurt even more when she urinates. She states that it does not actually hurt to urinate in her urethra and in her suprapubic region however it hurts in her left flank when she urinates. She has not having any abdominal pain. No change in bowel habits. Several weeks ago she was admitted to the hospital for bowel obstruction/diverticulitis she states this feels different from that. No skin rashes. She has had back discomfort in the past but this is different than that. Related Data Home Medications Medication Instructions Recorded Confirmed multivitamin with minerals (Daily 1 tab PO DAILY 12/07/21 11/14/23 Multivitamin-Minerals tablet) Previous Rx's Medication Instructions Recorded gabapentin 300 mg capsule 600 mg (2 x 300 mg) PO BEDTIME 06/12/23 NERVE PAIN #180 caps amlodipine 5 mg tablet 5 mg PO DAILY HTN #90 tabs 06/23/23 duloxetine 20 mg capsule,delayed 40 mg (2 x 20 mg) PO DAILY #180 10/27/23 release caps celecoxib 100 mg capsule 100 mg PO BID #60 caps 11/14/23 cyclobenzaprine 10 mg tablet 10 mg PO TID PRN muscle spasm #30 11/29/23 tabs Allergies Allergy/AdvReac Type Severity Reaction Status Date / Time No Known Drug Allergies Allergy Verified 11/14/23 09:42 Review of Systems Constitutional Constitutional: Reports system reviewed and no additional complaints, except as documented Gastrointestinal Gastrointestinal: Reports system reviewed and no additional complaints, except as documented Genitourinary Genitourinary: Reports system reviewed and no additional complaints, except as documented Musculoskeletal Musculoskeletal: Reports system reviewed and no additional complaints, except as documented Integumentary/Breasts Skin/Breast: Reports system reviewed and no additional complaints, except as documented Patient History Medical History History of melanoma Chronic thoracic back pain Mixed hyperlipidemia Sleep apnea (2015) Essential hypertension (~2019) BMI 40.0-44.9, adult Hypertension Surgical History Hx of cholecystectomy (11/04/19) History of bladder surgery Hx of section Family History Mother Liver failure Father Cancer Diabetes mellitus Hypertension Hyperlipidemia Brother Diabetes mellitus Hypertension Grandfather Diabetes mellitus Hypertension Grandmother Diabetes mellitus Hypertension Social History marital status: unknown details: single, one daughter household members: family and children occupational status: employed Smoking Status: Never smoker alcohol intake: current substance use type: does not use Smoking Status: Never smoker alcohol intake frequency: holidays/special occasions only Substance Use Type: does not use Exam Initial Vital Signs Initial Vital Signs: Vital Signs Temperature 98.9 F 12/25/23 18:25 Pulse Rate 76 12/25/23 18:25 Respiratory Rate 16 12/25/23 18:25 Blood Pressure 140/86 12/25/23 18:25 Pulse Oximetry 97 12/25/23 18:25 Oxygen Delivery Method Room Air 12/25/23 18:25 HENMT Head: normal to inspection and normocephalic GI Inspection: normal to inspection and non-distended Palpation: soft, No rigid and No tender Back/Spine/Pelvis Back: CVA tenderness left Skin General: no rashes or lesions noted Neuro General: patient alert, patient awake, patient oriented x3 and moves all extremities Extrem General: capillary refill normal Course Orders Ordered: ED Orders 12/25/23 21:10 Basic Metabolic Panel Stat Complete Blood Count AUTO DIFF Stat Discontinued Medications Ondansetron HCl (Ondansetron 4 Mg Odt) 4 mg SL NOW PRN PRN Reason: Nausea And Vomiting Vital Signs Vital signs: Vital Signs - 8 hr 12/25/23 21:33 Pulse Rate 74 Respiratory Rate 16 Blood Pressure 143/71 H Pulse Oximetry 96 Oxygen Delivery Method Room Air MDM - Back Pain/Injury Medical Records Attestation: I reviewed the patient's medical records. Lab Data Attestation: I reviewed the patient's lab results. 12/25/23 21:10 12/25/23 21:10 Labs: Lab Results 12/25/23 Range/Units 21:10 WBC 8.7 (4.5-11.0) X10^3/uL RBC 4.28 (4.0-5.2) X10^6/uL Hgb 13.9 (12.0-16.0) g/dL Hct 39.9 (36-46) % MCV 93.1 (80-100) fL MCH 32.5 (26-34) PG MCHC 34.9 (30-36) % RDW 12.3 (11.6-14.8) % Plt Count 340 (150-400) X10^3/uL Neut % (Auto) 57.7 (50-75) % Lymph % (Auto) 34.8 (25-40) % [place] % (Auto) 3.8 (3-14) % Eos % (Auto) 2.7 (2-4) % Baso % (Auto) 1.0 (0-2) % Neut # (Auto) 5000 (0334-4501) /uL Lymph # (Auto) 3000 (7734-9114) /uL [place] # (Auto) 300 (0-900) /uL Eos # (Auto) 200 (0-450) /uL Baso # (Auto) 100 (0-100) /uL Sodium 137 (137-145) mmol/L Potassium 3.6 (3.4-5.1) mmol/L Chloride 106 (98-107) mmol/L Carbon Dioxide 25 (22-32) mmol/L BUN 14 (7-17) mg/dL Creatinine 0.71 (0.52-1.04) mg/dL Estimated GFR > 60 (>60) mL/min BUN/Creatinine Ratio 19.7 (6-22) Glucose 94 (70-100) mg/dL Calcium 8.8 (8.4-10.2) mg/dL Urine Dip Bedside Urine Glucose Negative Bedside Urine Bilirubin - Negative Bedside Urine Ketone - Negative Urine Specific [place] 1.025 Bedside Urine Occult Blood - Negative Bedside Urine pH 6.0 Bedside Urine Protein - Negative Bedside Urine Urobilinogen - Negative Bedside Urine Nitrite - Negative Bedside Urine Leukocytes - Negative Esterase MDM Narrative Medical decision making narrative: Urinalysis shows no signs of infection. No hematuria. She has no skin rashes over the area. It is somewhat tender to palpation. No vaginal bleeding. Review of her medical record shows that the CT scan that she had several weeks ago when she was diagnosed with bowel obstruction did not show any signs of kidney stones or ureteral stones. She was afebrile. No indication for antibiotics. We did discuss the lack of definitive diagnosis but also discussed the things that I had low concern for which include kidney stones, pyelonephritis, zoster. She has no abdominal tenderness so I feel that we can hold on CT scan for diverticulitis/bowel obstruction she states this feels different than that. I have a higher suspicion that this is musculoskeletal in origin. Discuss this with the patient. Discussed return precautions and follow-up instructions. She expressed understanding and agreement. Discharge Plan Departure Patient Disposition: Home Clinical Impression: Back pain Instructions: DI for Thoracic Back Pain Activity Restrictions/Additional Instructions: Recommend that you continue to take all of your medications as directed. Keep your scheduled medical appointments. Contact your primary doctor for follow-up. I recommend that you consider using the topical lidocaine patches that you can purchase [id number]. Return to the emergency department for new symptoms. Prescriptions: No Action gabapentin 300 mg capsule 600 mg PO BEDTIME Qty: 180 3RF amlodipine 5 mg tablet 5 mg PO DAILY Qty: 90 3RF duloxetine 20 mg capsule,delayed release(DR/EC) 40 mg PO DAILY Qty: 180 3RF cyclobenzaprine 10 mg tablet 10 mg PO TID PRN (Reason: muscle spasm) Qty: 30 1RF Daily Multivitamin-Minerals Tablet 1 tab PO DAILY celecoxib 100 mg capsule 100 mg PO BID Qty: 60 5RF Referrals: Dima Cook MD [Primary Care Provider] - Stand Alone Forms: Patient Portal/API
[2023-12-25 21:30] LABS: BUN Creatinine Ratio 19.7 (6-22); Blood Urea Nitrogen 14 mg/dL (7-17); Calcium 8.8 mg/dL (8.4-10.2); Carbon Dioxide 25 mmol/L (22-32); Chloride 106 mmol/L (98-107); Estimated Glomerular Filt Rate > 60 mL/min (>60); Glucose 94 mg/dL (70-100); HEMOLYSIS 16 (0-50); Potassium 3.6 mmol/L (3.4-5.1); Sodium 137 mmol/L (137-145)
[2023-12-25 21:33] VITALS: BP 143/71; PULSE 74; RESP 16; O2SAT 96
== END 2023-12-25 22:23 | disposition home or self-care (01) ==
PROVIDERS: Emergency Provider Emergency Medicine; Family Provider Family Medicine; PCP Internal Medicine
DX: M54.9 Dorsalgia, unspecified (principal)
CPT/HCPCS: 36415; 80048; 81003; 85025; 99282

== ENCOUNTER → 2023-12-30 10:02 | Outpatient (CLI) | payer OTHER, SELFPAY ==
[2023-11-03 18:02] VITALS: BMI 39.4
--- NOTE | 2023-12-30 10:04 | DI.RAD.S_ITS ---
PROCEDURE: XR LUMBAR SPINE MIN 4V INDICATIONS: BACK PAIN TECHNIQUE: 5 views of the lumbar spine were acquired, including bilateral oblique views. COMPARISON: [facility], CR, XR LUMBAR SPINE 2-3V, 05/07/2020, 10:40. FINDINGS: Bones: 5 nonrib-bearing vertebrae are present. There is normal bony alignment. No vertebral body compression fractures. No suspicious bony lesions. Very minimal disc and foraminal narrowing at L5-S1 questionably progressive compared to prior exam. Soft tissues: Overlying bowel gas pattern is normal. No suspicious soft tissue calcifications. Oblique images: No pars defects. IMPRESSION: Minimal disc and foraminal narrowing at L5-S1. Dictated by: Adrianne Jack M.D. on 12/30/2023 at 10:37 Approved by: Adrianne Jack M.D. on 12/30/2023 at 10:38
== END ==
LOC: RAD 10:03
PROVIDERS: Family Provider Family Medicine; PCP Internal Medicine; Referring Provider Physical Medicine & Rehabilitation; Visit Provider Physical Medicine & Rehabilitation
DX: M54.9 Dorsalgia, unspecified (principal)
CPT/HCPCS: 72110

== ENCOUNTER → 2024-01-14 15:44 | Outpatient (CLI) | payer OTHER, SELFPAY ==
[2023-11-03 18:02] VITALS: BMI 39.4
--- NOTE | 2024-01-14 15:45 | DI.MRI.S_ITS ---
PROCEDURE: MR LUMBAR SPINE WO CON INDICATIONS: Chronic low back pain left lower extremity TECHNIQUE: Noncontrast sagittal T1 spin echo and T2 fast echo, sagittal STIR, and T2 fast spin echo through the lumbar spine. In cases with scoliosis, additional coronal T2 fast spin echo may be performed. COMPARISON: None. FINDINGS: Image quality: Excellent. Alignment and Curvature: There is normal bony alignment. Bone Marrow: Marrow is of normal overall signal. No acute vertebral body compression fractures. Spinal Cord: Conus medullaris terminates at the L1 level. Visualized cord demonstrates normal signal and size. Paraspinous Soft Tissues: No paravertebral masses. T12-L1: Normal appearance. L1-L2: Normal appearance. L2-L3: Normal appearance. L3-L4: Normal appearance. L4-L5: Disc height is preserved. No canal stenosis. Mild left foraminal stenosis. L5-S1: Mild disc desiccation and height loss. There is a small posterior focal high-intensity zone. No canal stenosis. Mild bilateral foraminal stenosis. IMPRESSION: 1. 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 2. No significant canal stenosis or foraminal narrowing of the lumbar spine. Dictated by: Heather Gale M.D. on 01/15/2024 at 8:53 Approved by: Heather Gale M.D. on 01/15/2024 at 8:55
== END ==
LOC: MRI 15:44
PROVIDERS: Family Provider Family Medicine; PCP Internal Medicine; Referring Provider Physical Medicine & Rehabilitation; Visit Provider Physical Medicine & Rehabilitation
DX: M51.17 Intervertebral disc disorders with radiculopathy, lumbosacral region (principal); G89.29 Other chronic pain
CPT/HCPCS: 72148

== ENCOUNTER 2024-02-10 12:11 | Observation (INO) | payer OTHER, SELFPAY ==
[2023-11-03 18:02] VITALS: BMI 39.4
[2024-02-10] VITALS (14 sets, daily range): BP systolic 121–153; BP diastolic 69–88; PULSE 68–91; RESP 10–26; TEMP 35.9–36.7; O2SAT 93–98; BMI 38.2
--- NOTE | 2024-02-10 12:23 | ED.ABDPAIN ---
HPI - Abdominal Pain General Chief Complaint: Abdominal Pain Stated Complaint: abd pain Time Seen by Provider: 02/10/24 12:22 History of Present Illness HPI narrative: 53-year-old female with history of small-bowel obstruction October 2023, prior abdominal pelvic surgeries include cholecystectomy and hysterectomy, still has her appendix, now with right-sided abdominal pain and sensation of abdominal distention similar to her October symptoms, she has passing a lot of gas yesterday, less so today, had a bowel movement this morning without black or red color that did not make her feel any better, some nausea without emesis. Increasing right-sided abdominal pain despite burping and flatulence, and small bowel movement nonbloody earlier today. She denies injury trauma new activities. She denies fevers chills. She denies painful urination or frequency of urination, or sensation that she has not able to empty her bladder. She denies flank pain. She was also seen here last month for back pain, felt to be thoracic musculoskeletal in nature, awaiting epidural spinal injection in fact this Monday upcoming. She has tried Tylenol with no relief. She has had frequent burping, and flatulence, neither which seems to be helping her abdominal pain. Related Data Home Medications Medication Instructions Recorded Confirmed multivitamin with minerals (Daily 1 tab PO DAILY 12/07/21 02/01/24 Multivitamin-Minerals tablet) Previous Rx's Medication Instructions Recorded amlodipine 5 mg tablet 5 mg PO DAILY HTN #90 tabs 06/23/23 duloxetine 20 mg capsule,delayed 40 mg (2 x 20 mg) PO DAILY #180 10/27/23 release caps cyclobenzaprine 10 mg tablet 10 mg PO TID PRN muscle spasm #30 01/18/24 tabs gabapentin 600 mg tablet 600 mg PO .COMPLEX #90 tabs 02/01/24 celecoxib 100 mg capsule 100 mg PO BID #60 caps 02/05/24 Allergies Allergy/AdvReac Type Severity Reaction Status Date / Time No Known Drug Allergies Allergy Verified 02/01/24 15:07 Patient History Medical History Facet arthropathy, lumbar Lumbar radiculopathy, chronic History of melanoma Chronic thoracic back pain Mixed hyperlipidemia Sleep apnea (2014) Essential hypertension (~2018) BMI 40.0-44.9, adult Hypertension Surgical History Hx of cholecystectomy (11/04/19) History of bladder surgery Hx of section Family History Mother Liver failure Father Cancer Diabetes mellitus Hypertension Hyperlipidemia Brother Diabetes mellitus Hypertension Grandfather Diabetes mellitus Hypertension Grandmother Diabetes mellitus Hypertension Social History marital status: unknown details: single, one daughter household members: family and children occupational status: employed Smoking Status: Never smoker alcohol intake: current substance use type: does not use Smoking Status: Never smoker alcohol intake frequency: holidays/special occasions only Substance Use Type: does not use Exam Narrative Exam Narrative: GENERAL: Well-developed patient, in mild-moderate abdominal distress. HEAD: Atraumatic. Normocephalic. EYES: Pupils equal round and reactive. Extraocular motions intact. No scleral icterus. No injection or drainage. ENT: Nose without bleeding, purulent drainage. Throat without erythema, tonsillar hypertrophy or exudate. Airway patent. NECK: Trachea midline. Non tender CARDIOVASCULAR: Regular rate and rhythm without murmurs, gallops, or rubs. RESPIRATORY: Clear to auscultation. Breath sounds equal bilaterally. No wheezes, rales, or rhonchi. GASTROINTESTINAL: Abdomen soft, not particularly distended in appearance, normal bowel tones without rushes or tinkles, some tenderness to right middle quadrant and right lower quadrant, not in right upper quadrant, no tenderness periumbilical or left-sided, no ventral hernias obvious. EXTREMITIES: No edema or joint tenderness. BACK: Nontender without deformity or crepitance. No flank tenderness. NEURO: AOx3. SKIN: No rash or erythema of visible areas Initial Vital Signs Initial Vital Signs: Vital Signs Pulse Rate 91 H 02/10/24 12:15 Blood Pressure 153/85 H 02/10/24 12:15 Pulse Oximetry 94 02/10/24 12:15 Oxygen Delivery Method Room Air 02/10/24 12:15 Course Orders Ordered: ED Orders 02/10/24 12:30 Complete Blood Count AUTO DIFF Stat Comprehensive Metabolic Panel Stat Lipase Stat 02/10/24 12:31 HCG Quantitative /Beta subunit Stat 02/10/24 13:03 CT abdomen pelvis w con Stat 02/10/24 14:08 Urine Culture Stat Urine Microscopic Stat 02/10/24 14:12 Consult to General Surgery Stat Heparin Sodium (Porcine) (Heparin 5,000 Unit/Ml Vial) 5,000 unit SUBCUT BID CORTNEY Dextrose/Sodium Chloride (Dextrose 5%-0.9% Ns) 1,000 mls @ 100 mls/hr IV CONT CORTNEY Morphine Sulfate (Morphine 2 Mg/Ml Inj) 2 mg IV Q2HR PRN PRN Reason: Pain, Moderate (4-6) Naloxone HCl (Naloxone 0.4 Mg/Ml Vial) 0.2 mg IV Q2MIN PRN PRN Reason: Opiate Reversal Ondansetron HCl (Ondansetron 4 Mg/2 Ml Inj) 4 mg IV Q8HR PRN PRN Reason: Nausea And Vomiting Discontinued Medications Hydromorphone HCl (Hydromorphone 0.5 Mg Inj) 0.5 mg IV NOW ONE Stop: 02/10/24 13:03 Last Admin: 02/10/24 13:10 Dose: 0.5 mg Sodium Chloride (Normal Saline 0.9%) 1,000 mls @ 1,000 mls/hr IV BOLUS ONE Stop: 02/10/24 14:02 Last Admin: 02/10/24 13:10 Dose: 1,000 mls/hr Ondansetron HCl (Ondansetron 4 Mg/2 Ml Inj) 4 mg IV NOW ONE Stop: 02/10/24 13:03 Last Admin: 02/10/24 13:10 Dose: 4 mg Vital Signs Vital signs: Vital Signs - 8 hr 02/10/24 12:15 02/10/24 12:19 02/10/24 12:30 Temperature 98.1 F Pulse Rate 91 H 89 81 Respiratory Rate 18 Blood Pressure 153/85 H 153/85 H 132/78 Pulse Oximetry 94 98 96 Oxygen Delivery Method Room Air Room Air Room Air 02/10/24 12:44 02/10/24 13:00 02/10/24 13:00 Temperature Pulse Rate 83 80 Respiratory Rate 26 H Blood Pressure 122/79 Pulse Oximetry 97 93 Oxygen Delivery Method 02/10/24 13:16 02/10/24 13:16 02/10/24 13:30 Temperature Pulse Rate 84 83 Respiratory Rate 24 10 L Blood Pressure 141/77 H Pulse Oximetry 94 93 Oxygen Delivery Method 02/10/24 13:30 Temperature Pulse Rate Respiratory Rate Blood Pressure 126/75 Pulse Oximetry Oxygen Delivery Method MDM - Abdominal Pain Medical Records Attestation: I reviewed the patient's medical records. Lab Data Attestation: I reviewed the patient's lab results. 02/10/24 12:30 02/10/24 12:31 Labs: Lab Results 02/10/24 02/10/24 02/10/24 Range/Units 12:30 12:31 14:06 WBC 6.5 (4.5-11.0) X10^3/uL RBC 4.44 (4.0-5.2) X10^6/uL Hgb 14.2 (12.0-16.0) g/dL Hct 40.6 (36-46) % MCV 91.6 (80-100) fL MCH 32.0 (26-34) PG MCHC 34.9 (30-36) % RDW 12.0 (11.6-14.8) % Plt Count 293 (150-400) X10^3/uL Neut % (Auto) 71.6 (50-75) % Lymph % (Auto) 21.1 L (25-40) % [place] % (Auto) 5.2 (3-14) % Eos % (Auto) 1.7 L (2-4) % Baso % (Auto) 0.4 (0-2) % Neut # (Auto) 4600 (8948-9534) /uL Lymph # (Auto) 1400 (8278-5968) /uL [place] # (Auto) 300 (0-900) /uL Eos # (Auto) 100 (0-450) /uL Baso # (Auto) 0 (0-100) /uL Sodium 140 (137-145) mmol/L Potassium 4.2 (3.4-5.1) mmol/L Chloride 106 (98-107) mmol/L Carbon Dioxide 26 (22-32) mmol/L BUN 18 H (7-17) mg/dL Creatinine 0.72 (0.52-1.04) mg/dL Estimated GFR > 60 (>60) mL/min BUN/Creatinine Ratio 25.0 H (6-22) Glucose 95 (70-100) mg/dL Calcium 8.8 (8.4-10.2) mg/dL Total Bilirubin 0.6 (0.2-1.3) mg/dL AST 27 (14-36) IU/L ALT 18 (<35) IU/L Alkaline Phosphatase 51 (38-126) U/L Total Protein 7.1 (6.3-8.2) g/dL Albumin 4.4 (3.5-5.0) g/dL Globulin 2.7 (1.7-4.1) g/dL Albumin/Globulin Ratio 1.6 (1.0-2.8) Lipase 88 (23-300) U/L HCG, Quant < 2.39 mIU/mL Urine RBC None seen (0-5/HPF) Urine WBC 0-1/hpf (0-5/HPF) Ur Squamous Epith Cells 0-1 /hpf D (0-5/HPF) Amorphous Sediment 2+ Urine Bacteria Occasional (0-1) (None) Vol Urine Centrifuged 10ml (spun) Point of care testing: Urine Dip Bedside Urine Glucose Negative Bedside Urine Bilirubin - Negative Bedside Urine Ketone - Negative Urine Specific [place] 1.015 Bedside Urine Occult Blood - Negative Bedside Urine pH 6.5 Bedside Urine Protein - Negative Bedside Urine Urobilinogen - Negative Bedside Urine Nitrite - Negative Bedside Urine Leukocytes + [address] scan - abdomen/pelvis: Radiologist's Impression: [place] [address] CT Scan Report Signed Patient: Nadeen Holly MR#: [id number] : 1970 Acct:[id number] Age/Sex: 53 / F Date of Service: 02/10/24 Loc: ED Accession Number: [id number] Procedure: CT abdomen pelvis w con Ordering Provider: Tim Mehta MD PROCEDURE: CT ABDOMEN PELVIS W CON INDICATIONS: Right-sided abdominal pain TECHNIQUE: After the administration of intravenous contrast, axial sections acquired from the lung bases to the pubic symphysis. Coronal and sagittal reformats were performed. For radiation dose reduction, the following was used: automated exposure control, adjustment of mA and/or kV according to patient size. COMPARISON: [facility], CT, CT ABDOMEN PELVIS W CON, 11/03/2023, 15:06. FINDINGS: Image quality: Diagnostic. Lower Chest: No significant findings. ABDOMEN: Liver: No solid mass. Gallbladder: Absent. Biliary ducts: No intrahepatic or extrahepatic biliary dilation, accounting for a post cholecystectomy state. Pancreas: No ductal dilation. Spleen: Size is within normal limits. Adrenal Glands: No adrenal nodules. Kidneys and Ureters: No hydronephrosis. No solid mass. No complex renal cystic lesion which requires follow up. Stomach and Bowel: Distended loops of small bowel. Fecalization of small bowel contents. Relative transition point in the right lower quadrant (series 3, image 35). Fecal debris and fluid within the small bowel distal to this transition point. Fluid and air within the large bowel. Macro colonic Appendix not identified, but there is no pericecal fat stranding to suggest appendicitis. Peritoneum: No abnormal intraperitoneal fluid. No free air. Ventral Wall: No significant ventral hernia. Abdominal Nodes: No retroperitoneal or mesenteric adenopathy by size criteria. Vessels: Aorta and inferior vena cava are normal in size. PELVIS: Pelvic Organs: Unremarkable. Bladder: No bladder wall thickening, accounting for underdistention. Pelvic Nodes: No enlarged lymph nodes. Miscellaneous: No inguinal hernias are seen. Bones: No aggressive osseous abnormality. IMPRESSION: Suspected partial, low-grade small bowel obstruction with a relative transition point in the right lower quadrant. There is fecal debris and fluid within the bowel distal to the transition point, and fecalized debris within the proximal small bowel. No mesenteric edema. Dictated by: Oscar Eric M.D. on 02/10/2024 at 13:52 Approved by: Oscar Eric M.D. on 02/10/2024 at 13:55 MDM Narrative Medical decision making narrative: 53-year-old female with bowel obstruction earlier this year in October treated medically, prior cholecystectomy and abdominal pelvic surgeries, now with burping and flatulence and increased abdominal girth sensation, similar to her October symptoms, but now right-sided pain, afebrile, sirs screen negative, some tenderness to right middle quadrant and right lower quadrant, still has her appendix. Labs pending, IV fluids, she would like pain medication. IV Dilaudid/Zofran. Keep NPO. IV fluid bolus. Anticipate CT abdomen and pelvis imaging, creatinine/GFR pending. CMP unremarkable, GFR normal, hCG negative. Urine dip results pending. CT abdomen and pelvis with IV contrast imaging ordered. Pain seems better controlled after Dilaudid/Zofran. Denies nausea as well Urine dip positive for leukocytes, urinalysis requested CT shows partial small-bowel obstruction changes with transition point right lower quadrant, mentioned also of fecal debris in that area, appendix not well seen but no mesenteric edema. See report. Case discussed with surgery Dr. Recio, she will consult, requests admit to hospitalist service Case discussed with hospitalist Dr. Yu, accepts patient for admission Critical Care Time Critical Care Time Critical Care Time: Yes Total Critical Care Time: 31 Attestation: The high probability of a clinically significant, sudden or life threatening deterioration of the [abdominopelvic] systems required my full and direct attention, intervention and personal management. The aggregate critical care time was [] minutes. This time is in addition to time spent performing reported procedures but includes the following: [x] Data Review and interpretation [x] Patient assessment and monitoring of vital signs [x] Documentation [x] Medication orders and management Discharge Plan Departure Patient Disposition: Admitted as Observation Clinical Impression: Small bowel obstruction, Abdominal pain Admit Date/Time: 02/10/24 14:19 Admit Provider: Adarsh Crockett
[2024-02-10 12:58] LABS: Alanine Aminotransferase 18 IU/L (<35); Albumin 4.4 g/dL (3.5-5.0); Albumin Globulin Ratio 1.6 (1.0-2.8); Alkaline Phosphatase 51 U/L (38-126); Aspartate Aminotransferase 27 IU/L (14-36); Bilirubin Total 0.6 mg/dL (0.2-1.3); Blood Urea Nitrogen 18 mg/dL (7-17); Calcium 8.8 mg/dL (8.4-10.2); Carbon Dioxide 26 mmol/L (22-32); Chloride 106 mmol/L (98-107); Estimated Glomerular Filt Rate > 60 mL/min (>60); Globulin 2.7 g/dL (1.7-4.1); Glucose 95 mg/dL (70-100); HEMOLYSIS 27 (0-50); Lipase 88 U/L (23-300); Potassium 4.2 mmol/L (3.4-5.1); Sodium 140 mmol/L (137-145); Total Protein 7.1 g/dL (6.3-8.2)
--- NOTE | 2024-02-10 13:03 | DI.CT.S_ITS ---
PROCEDURE: CT ABDOMEN PELVIS W CON INDICATIONS: Right-sided abdominal pain TECHNIQUE: After the administration of intravenous contrast, axial sections acquired from the lung bases to the pubic symphysis. Coronal and sagittal reformats were performed. For radiation dose reduction, the following was used: automated exposure control, adjustment of mA and/or kV according to patient size. COMPARISON: [facility], CT, CT ABDOMEN PELVIS W CON, 11/03/2023, 15:06. FINDINGS: Image quality: Diagnostic. Lower Chest: No significant findings. ABDOMEN: Liver: No solid mass. Gallbladder: Absent. Biliary ducts: No intrahepatic or extrahepatic biliary dilation, accounting for a post cholecystectomy state. Pancreas: No ductal dilation. Spleen: Size is within normal limits. Adrenal Glands: No adrenal nodules. Kidneys and Ureters: No hydronephrosis. No solid mass. No complex renal cystic lesion which requires follow up. Stomach and Bowel: Distended loops of small bowel. Fecalization of small bowel contents. Relative transition point in the right lower quadrant (series 3, image 35). Fecal debris and fluid within the small bowel distal to this transition point. Fluid and air within the large bowel. Macro colonic Appendix not identified, but there is no pericecal fat stranding to suggest appendicitis. Peritoneum: No abnormal intraperitoneal fluid. No free air. Ventral Wall: No significant ventral hernia. Abdominal Nodes: No retroperitoneal or mesenteric adenopathy by size criteria. Vessels: Aorta and inferior vena cava are normal in size. PELVIS: Pelvic Organs: Unremarkable. Bladder: No bladder wall thickening, accounting for underdistention. Pelvic Nodes: No enlarged lymph nodes. Miscellaneous: No inguinal hernias are seen. Bones: No aggressive osseous abnormality. IMPRESSION: Suspected partial, low-grade small bowel obstruction with a relative transition point in the right lower quadrant. There is fecal debris and fluid within the bowel distal to the transition point, and fecalized debris within the proximal small bowel. No mesenteric edema. Dictated by: Oscar Eric M.D. on 02/10/2024 at 13:52 Approved by: Oscar Eric M.D. on 02/10/2024 at 13:55
[2024-02-10 13:08] LABS: HCG Quantitative /Beta subunit < 2.39 mIU/mL
[2024-02-10 13:08] LABS: Add Manual Diff / Slide Review NO; Basophils Absolute Auto 0 /uL (0-100); Basophils Percent Auto 0.4 % (0-2); Eosinophils Absolute Auto 100 /uL (0-450); Eosinophils Percent Auto 1.7 % (2-4); Hematocrit 40.6 % (36-46); Hemoglobin 14.2 g/dL (12.0-16.0); Lymphocytes Absolute Auto 1400 /uL (1100-4500); Lymphocytes Percent Auto 21.1 % (25-40); Mean Corpuscular HGB Conc 34.9 % (30-36); Mean Corpuscular Volume 91.6 fL (80-100); Monocytes Absolute Auto 300 /uL (0-900); Monocytes Percent Auto 5.2 % (3-14); Neutrophils Absolute Auto 4600 /uL (1500-7000); Neutrophils Percent Auto 71.6 % (50-75); Platelet Count 293 X10^3/uL (150-400); Red Blood Cell Count 4.44 X10^6/uL (4.0-5.2); White Blood Cell Count 6.5 X10^3/uL (4.5-11.0)
[2024-02-10] MEDS: ONDANSETRON 4 MG/2 ML INJ IV (13:10)
[2024-02-10] MEDS: HYDROMORPHONE 0.5 MG INJ IV (13:10)
[2024-02-10] MEDS: SODIUM CHLORIDE 0.9% 1,000 ML 1000 ML IV (13:10)
--- NOTE | 2024-02-10 14:41 | PM.HP.1 ---
History of Present Illness History of Present Illness Chief complaint: abd pain Narrative: From ED physician: 53-year-old female with history of small-bowel obstruction October 2023, prior abdominal pelvic surgeries include cholecystectomy and hysterectomy, still has her appendix, now with right-sided abdominal pain and sensation of abdominal distention similar to her October symptoms, she has passing a lot of gas yesterday, less so today, had a bowel movement this morning without black or red color that did not make her feel any better, some nausea without emesis. She denies injury trauma new activities. She denies fevers chills. She denies painful urination or frequency of urination, or sensation that she has not able to empty her bladder. She denies flank pain. She was also seen here last month for back pain, felt to be thoracic musculoskeletal in nature, awaiting epidural spinal injection in fact this Monday upcoming. She has tried Tylenol with no relief. She has had frequent burping, and flatulence, neither which seems to be helping her abdominal pain. Now: She was doing well until having a little bit of left upper quadrant aching yesterday. This morning she developed acute intense abdominal pain. The pain was constant and did not radiate. She also had some belching this morning. She did have flatus earlier in the day but none since arriving. In the emergency department imaging was somewhat concerning for an early partial small-bowel obstruction. She was admitted earlier this year with a similar episode. Dr. Recio of General surgery was contacted and will consult. She does not have a white count and is afebrile. She is history of and cholecystectomy. She denies recent diarrhea, blood per rectum. No fevers, chills or URI symptoms. [facility] Medical History Facet arthropathy, lumbar Lumbar radiculopathy, chronic History of melanoma Chronic thoracic back pain Mixed hyperlipidemia Sleep apnea (2015) Essential hypertension (~2018) BMI 40.0-44.9, adult Hypertension Surgical History Hx of cholecystectomy (11/04/19) History of bladder surgery Hx of section Family History Mother Liver failure Father Cancer Diabetes mellitus Hypertension Hyperlipidemia Brother Diabetes mellitus Hypertension Grandfather Diabetes mellitus Hypertension Grandmother Diabetes mellitus Hypertension Social History marital status: unknown details: single, one daughter household members: family and children occupational status: employed Smoking Status: Never smoker alcohol intake: current substance use type: does not use Meds Home Medications and Allergies Home Medications Medication Instructions Recorded Confirmed Type multivitamin with minerals (Daily 1 tab PO DAILY 12/07/21 02/01/24 History Multivitamin-Minerals tablet) amlodipine 5 mg tablet 5 mg PO DAILY HTN #90 tabs 06/23/23 02/01/24 Rx duloxetine 20 mg capsule,delayed 40 mg (2 x 20 mg) PO DAILY #180 10/27/23 02/01/24 Rx release caps cyclobenzaprine 10 mg tablet 10 mg PO TID PRN muscle spasm #30 01/18/24 02/01/24 Rx tabs gabapentin 600 mg tablet 600 mg PO .COMPLEX #90 tabs 02/01/24 02/01/24 Rx celecoxib 100 mg capsule 100 mg PO BID #60 caps 02/05/24 Rx Allergies Allergy/AdvReac Type Severity Reaction Status Date / Time No Known Drug Allergies Allergy Verified 02/01/24 15:07 Review of Systems Review of Systems Narrative: All else reviewed and otherwise unremarkable except as noted in the history and physical. Exam Vital Signs (past 8 hours): - 02/10/24 12:15 02/10/24 12:19 02/10/24 12:30 Temperature 98.1 F Pulse Rate 91 H 89 81 Respiratory Rate 18 Blood Pressure 153/85 H 153/85 H 132/78 Pulse Oximetry 94 98 96 Oxygen Delivery Method Room Air Room Air Room Air 02/10/24 12:44 02/10/24 13:00 02/10/24 13:00 Temperature Pulse Rate 83 80 Respiratory Rate 26 H Blood Pressure 122/79 Pulse Oximetry 97 93 Oxygen Delivery Method 02/10/24 13:16 02/10/24 13:16 02/10/24 13:30 Temperature Pulse Rate 84 83 Respiratory Rate 24 10 L Blood Pressure 141/77 H Pulse Oximetry 94 93 Oxygen Delivery Method 02/10/24 13:30 Temperature Pulse Rate Respiratory Rate Blood Pressure 126/75 Pulse Oximetry Oxygen Delivery Method Oxygen Delivery Method Room Air Narrative Exam Narrative: NAD, alert and oriented, fluent speech, calm. Normocephalic skull, EOMI, anicteric sclera, symmetric pupils. Oropharynx unremarkable, no droop. Neck supple, midline trachea, no adenopathy. Lungs clear, normal rate and effort. Heart regular, no murmur gallop or rub. Abdomen is soft, non distended and non tender. She is some left upper quadrant tenderness without guarding or rebound. Extremities are free of edema. Skin is free of rash or lesions. Joints are not swollen or deformed. Judgment appears to be normal. Objective Imaging CT scan - abdomen: Radiologist's impression: Suspected partial, low-grade small bowel obstruction with a relative transition point in the right lower quadrant. There is fecal debris and fluid within the bowel distal to the transition point, and fecalized debris within the proximal small bowel. No mesenteric edema. Labs 02/10/24 12:30 02/10/24 12:31 Labs: Laboratory Results - last 24 hr 02/10/24 02/10/24 12:30 12:31 WBC 6.5 RBC 4.44 Hgb 14.2 Hct 40.6 MCV 91.6 MCH 32.0 MCHC 34.9 RDW 12.0 Plt Count 293 Neut % (Auto) 71.6 Lymph % (Auto) 21.1 L [place] % (Auto) 5.2 Eos % (Auto) 1.7 L Baso % (Auto) 0.4 Neut # (Auto) 4600 Lymph # (Auto) 1400 [place] # (Auto) 300 Eos # (Auto) 100 Baso # (Auto) 0 Sodium 140 Potassium 4.2 Chloride 106 Carbon Dioxide 26 BUN 18 H Creatinine 0.72 Estimated GFR > 60 BUN/Creatinine Ratio 25.0 H Glucose 95 Calcium 8.8 Total Bilirubin 0.6 AST 27 ALT 18 Alkaline Phosphatase 51 Total Protein 7.1 Albumin 4.4 Globulin 2.7 Albumin/Globulin Ratio 1.6 Lipase 88 HCG, Quant < 2.39 Assessment & Plan Assessment & Plan narrative: 1. Partial SBO, present on admission and active. 2. Chronic lumbar radiculopathy, present on admission and active. 3. Hypertension, present on admission and active. 4. BABS, present on admission and active. 5. HLD, present on admission and active. 6. Morbid obesity with BMI of 46, present on admission and active. PLAN: -NPO -IV fluids -pain control -monitor abdominal pain and abdominal exam. -NG tube decompression if she fails to improve or worsens. -surgical consult. Full code. She was admitted observation status with a 1 midnight expectation at the time of admission. Time Spent With Patient Time with patient: 30 to 49 minutes with 50% spent counseling/coordinating care Quality MIPS - Admit I confirm the patient?s Advance Care Plan is present, Code status is documented, Surrogate decision maker is in patient?s record [If Yes, STOP here]: Yes MIPS - Meds 'Current medications' to include all prescriptions, [id number] products, herbals, cannabis/cannabidiol products, and vitamin/mineral/dietary (nutritional) supplements. I have utilized all available resources to obtain, update, or review the patient?s current medications. [If Yes, STOP here]: Yes
[2024-02-10 14:43] LABS: Amorphous Sediment Urine 2+; Bacteria Urine Occasional (0-1); RBC Urine None Seen (0-5/HPF); Squamous Epithelial Cell Urine 0-1 /HPF (0-5/HPF); Urine Volume 10mL (spun); WBC Urine 0-1/HPF (0-5/HPF)
[2024-02-10] MEDS: HEPARIN 5,000 UNIT/ML VIAL 5000 UNIT SUBCUT ×2 (16:07→21:32)
[2024-02-10] MEDS: MORPHINE 2 MG/ML INJ IV ×2 (16:07→21:32)
[2024-02-10] MEDS: DEXTROSE 5%-0.9% NS 1,000 ML 100 ML IV (16:07)
[2024-02-11] MEDS: DEXTROSE 5%-0.9% NS 1,000 ML 100 ML IV (02:01)
[2024-02-11 05:37] LABS: Add Manual Diff / Slide Review NO; Basophils Absolute Auto 0 /uL (0-100); Basophils Percent Auto 0.3 % (0-2); Eosinophils Absolute Auto 200 /uL (0-450); Eosinophils Percent Auto 4.3 % (2-4); Hematocrit 37.7 % (36-46); Lymphocytes Absolute Auto 1600 /uL (1100-4500); Lymphocytes Percent Auto 42.5 % (25-40); Mean Corpuscular HGB Conc 34.6 % (30-36); Mean Corpuscular Volume 92.6 fL (80-100); Monocytes Absolute Auto 200 /uL (0-900); Monocytes Percent Auto 6.6 % (3-14); Neutrophils Absolute Auto 1700 /uL (1500-7000); Neutrophils Percent Auto 46.3 % (50-75); Platelet Count 239 X10^3/uL (150-400); Red Blood Cell Count 4.07 X10^6/uL (4.0-5.2); Red Cell Distribution Width 11.7 % (11.6-14.8); White Blood Cell Count 3.7 X10^3/uL (4.5-11.0)
[2024-02-11 05:41] LABS: BUN Creatinine Ratio 15.3 (6-22); Blood Urea Nitrogen 11 mg/dL (7-17); Carbon Dioxide 29 mmol/L (22-32); Chloride 108 mmol/L (98-107); Estimated Glomerular Filt Rate > 60 mL/min (>60); Glucose 94 mg/dL (70-100); HEMOLYSIS < 15 (0-50); Potassium 3.6 mmol/L (3.4-5.1); Sodium 140 mmol/L (137-145)
[2024-02-11] MEDS: MORPHINE 2 MG/ML INJ IV ×2 (06:27→11:49)
--- NOTE | 2024-02-11 08:03 | PM.PN.1 ---
Subjective Subjective Interval history: She was admitted on February 09 with a partial small-bowel obstruction. Today: She feels little bit better than yesterday but still not great. She denies nausea. She has had ice chips. No flatus. Little less abdominal pain, no distention. She has a CERRATO. Exam Vital Signs (past 8 hours): Oxygen Delivery Method Room Air Oxygen Flow Rate 0 Narrative Exam Narrative: NAD, alert and oriented. Fluent speech. Lungs are clear, normal rate and effort. Heart is regular, no murmur gallop or rub. Abdomen is soft, non distended. Minimal bowel tones. Extremities are free of edema. Objective Labs 02/11/24 05:20 02/11/24 05:20 Labs: Laboratory Results - last 24 hr 02/10/24 02/10/24 02/10/24 12:30 12:31 14:06 WBC 6.5 RBC 4.44 Hgb 14.2 Hct 40.6 MCV 91.6 MCH 32.0 MCHC 34.9 RDW 12.0 Plt Count 293 Neut % (Auto) 71.6 Lymph % (Auto) 21.1 L [place] % (Auto) 5.2 Eos % (Auto) 1.7 L Baso % (Auto) 0.4 Neut # (Auto) 4600 Lymph # (Auto) 1400 [place] # (Auto) 300 Eos # (Auto) 100 Baso # (Auto) 0 Sodium 140 Potassium 4.2 Chloride 106 Carbon Dioxide 26 BUN 18 H Creatinine 0.72 Estimated GFR > 60 BUN/Creatinine Ratio 25.0 H Glucose 95 Calcium 8.8 Total Bilirubin 0.6 AST 27 ALT 18 Alkaline Phosphatase 51 Total Protein 7.1 Albumin 4.4 Globulin 2.7 Albumin/Globulin Ratio 1.6 Lipase 88 HCG, Quant < 2.39 Urine RBC None seen Urine WBC 0-1/hpf Ur Squamous Epith Cells 0-1 /hpf D Amorphous Sediment 2+ Urine Bacteria Occasional (0-1) Vol Urine Centrifuged 10ml (spun) 02/11/24 05:20 WBC 3.7 L RBC 4.07 Hgb 13.0 Hct 37.7 MCV 92.6 MCH 32.0 MCHC 34.6 RDW 11.7 Plt Count 239 Neut % (Auto) 46.3 L D Lymph % (Auto) 42.5 H D Banks % (Auto) 6.6 Eos % (Auto) 4.3 H Baso % (Auto) 0.3 Neut # (Auto) 1700 Lymph # (Auto) 1600 [place] # (Auto) 200 Eos # (Auto) 200 Baso # (Auto) 0 Sodium 140 Potassium 3.6 Chloride 108 H Carbon Dioxide 29 BUN 11 Creatinine 0.72 Estimated GFR > 60 BUN/Creatinine Ratio 15.3 Glucose 94 Calcium 8.0 L Total Bilirubin AST ALT Alkaline Phosphatase Total Protein Albumin Globulin Albumin/Globulin Ratio Lipase HCG, Quant Urine RBC Urine WBC Ur Squamous Epith Cells Amorphous Sediment Urine Bacteria Vol Urine Centrifuged [facility] Medical History Facet arthropathy, lumbar Lumbar radiculopathy, chronic History of melanoma Chronic thoracic back pain Mixed hyperlipidemia Sleep apnea (2015) Essential hypertension (~2018) BMI 40.0-44.9, adult Hypertension Surgical History Hx of cholecystectomy (11/04/19) History of bladder surgery Hx of section Family History Mother Liver failure Father Cancer Diabetes mellitus Hypertension Hyperlipidemia Brother Diabetes mellitus Hypertension Grandfather Diabetes mellitus Hypertension Grandmother Diabetes mellitus Hypertension Social History marital status: unknown details: single, one daughter household members: family and children occupational status: employed Smoking Status: Never smoker alcohol intake: current substance use type: does not use Assessment & Plan Assessment & Plan narrative: 1. Partial SBO, present on admission and active. 2. Chronic lumbar radiculopathy, present on admission and active. 3. Hypertension, present on admission and active. 4. BABS, present on admission and active. 5. HLD, present on admission and active. 6. Morbid obesity with BMI of 46, present on admission and active. PLAN: -NPO, we will continue -IV fluids, we will continue -pain control -monitor abdominal pain and abdominal exam. -NG tube decompression if she fails to improve or worsens. -surgical consult. we will get a KUB this morning to assess bowel loops and discuss with surgery.
[2024-02-11] MEDS: HEPARIN 5,000 UNIT/ML VIAL 5000 UNIT SUBCUT ×2 (09:05→20:05)
[2024-02-11] MEDS: GABAPENTIN 300 MG CAPSULE PO ×2 (09:05→20:05)
--- NOTE | 2024-02-11 09:19 | DI.RAD.S_ITS ---
PROCEDURE: XR KUB INDICATIONS: abdomen pain, evaluate for SBO TECHNIQUE: One view of the abdomen acquired. COMPARISON: CT abdomen pelvis 02/10/2024. FINDINGS: Surgical changes and devices: None. Bowel: Gas distended colon. Moderate fecal load. Soft tissues: No suspicious abdominal calcifications. Visualized solid organ contours appear normal in size. Bones: No suspicious bony lesions. IMPRESSION: No radiographic evidence of small-bowel obstruction. Approved by: Frances Barrientos M.D.,Ph.D. on 02/11/2024 at 9:19
--- NOTE | 2024-02-11 11:08 | PM.PN.1 ---
Subjective Subjective Date Patient Seen: 02/11/24 Time Patient Seen: 11:08 Interval history: Passing some gas. Abdomen feels less distended Exam Vital Signs (past 8 hours): Oxygen Delivery Method Room Air Oxygen Flow Rate 0 Const General: cooperative and comfortable Nutritional Appearance: overweight [facility] Head: normocephalic and atraumatic Ears: hearing grossly normal bilaterally Eyes Sclera: sclerae normal Neck Neck: trachea midline and No tender Resp Effort & Inspection: normal respiratory effort and able to speak in complete sentences Cardio Rate: regular rate Rhythm: regular rhythm GI Inspection: distended Palpation: soft, No firm and No guarding Skin General: turgor normal and No atrophy Neuro General: patient alert, patient awake and patient oriented x3 Cognition: normal cognition Psych Mental Status: mental status grossly normal Judgment: judgment good Objective Labs 02/11/24 05:20 02/11/24 05:20 Labs: Laboratory Results - last 24 hr 02/10/24 02/10/24 02/10/24 12:30 12:31 14:06 WBC 6.5 RBC 4.44 Hgb 14.2 Hct 40.6 MCV 91.6 MCH 32.0 MCHC 34.9 RDW 12.0 Plt Count 293 Neut % (Auto) 71.6 Lymph % (Auto) 21.1 L [place] % (Auto) 5.2 Eos % (Auto) 1.7 L Baso % (Auto) 0.4 Neut # (Auto) 4600 Lymph # (Auto) 1400 [place] # (Auto) 300 Eos # (Auto) 100 Baso # (Auto) 0 Sodium 140 Potassium 4.2 Chloride 106 Carbon Dioxide 26 BUN 18 H Creatinine 0.72 Estimated GFR > 60 BUN/Creatinine Ratio 25.0 H Glucose 95 Calcium 8.8 Total Bilirubin 0.6 AST 27 ALT 18 Alkaline Phosphatase 51 Total Protein 7.1 Albumin 4.4 Globulin 2.7 Albumin/Globulin Ratio 1.6 Lipase 88 HCG, Quant < 2.39 Urine RBC None seen Urine WBC 0-1/hpf Ur Squamous Epith Cells 0-1 /hpf D Amorphous Sediment 2+ Urine Bacteria Occasional (0-1) Vol Urine Centrifuged 10ml (spun) 02/11/24 05:20 WBC 3.7 L RBC 4.07 Hgb 13.0 Hct 37.7 MCV 92.6 MCH 32.0 MCHC 34.6 RDW 11.7 Plt Count 239 Neut % (Auto) 46.3 L D Lymph % (Auto) 42.5 H D [place] % (Auto) 6.6 Eos % (Auto) 4.3 H Baso % (Auto) 0.3 Neut # (Auto) 1700 Lymph # (Auto) 1600 [place] # (Auto) 200 Eos # (Auto) 200 Baso # (Auto) 0 Sodium 140 Potassium 3.6 Chloride 108 H Carbon Dioxide 29 BUN 11 Creatinine 0.72 Estimated GFR > 60 BUN/Creatinine Ratio 15.3 Glucose 94 Calcium 8.0 L Total Bilirubin AST ALT Alkaline Phosphatase Total Protein Albumin Globulin Albumin/Globulin Ratio Lipase HCG, Quant Urine RBC Urine WBC Ur Squamous Epith Cells Amorphous Sediment Urine Bacteria Vol Urine Centrifuged [facility] Medical History Facet arthropathy, lumbar Lumbar radiculopathy, chronic History of melanoma Chronic thoracic back pain Mixed hyperlipidemia Sleep apnea (2014) Essential hypertension (~2018) BMI 40.0-44.9, adult Hypertension Surgical History Hx of cholecystectomy (11/04/19) History of bladder surgery Hx of section Family History Mother Liver failure Father Cancer Diabetes mellitus Hypertension Hyperlipidemia Brother Diabetes mellitus Hypertension Grandfather Diabetes mellitus Hypertension Grandmother Diabetes mellitus Hypertension Social History marital status: unknown details: single, one daughter household members: family and children occupational status: employed Smoking Status: Never smoker alcohol intake: current substance use type: does not use Assessment & Plan Assessment & Plan narrative: Early small bowel obstruction likely adhesive disease, already resolving. Plan: Clear liquid diet advanced as tolerated Time Spent With Patient Time with patient: less than 30 minutes
[2024-02-11] MEDS: HYDROCODONE/ACET 10/325 TABLET 1 TAB PO (16:45)
--- NOTE | 2024-02-11 17:14 | CM.DPNOTE ---
DCP note MEDIA/INSTRUCTIONAL DESIGNER reviewed EMR. Pt is a 53yo F here following partial SBO. Per surgeon note, early small bowel movement, advance diet as tolerated. Per hospitalist in morning rounds, anticipate another day until ready for discharge at minimum. Per chart review, when pt was here for similar concern Oct 2023, pt discharged home no CM needs. MEDIA/INSTRUCTIONAL DESIGNER unable to meet with pt today due to triaging needs. CM team will follow closely for any CM needs that arise. SARAH José
[2024-02-11 19:30] VITALS: BP 133/83; PULSE 74; RESP 18; TEMP 36.4; O2SAT 95
[2024-02-12 05:21] LABS: Add Manual Diff / Slide Review NO; Basophils Absolute Auto 0 /uL (0-100); Basophils Percent Auto 0.3 % (0-2); Eosinophils Absolute Auto 200 /uL (0-450); Eosinophils Percent Auto 4.9 % (2-4); Hematocrit 37.9 % (36-46); Hemoglobin 13.2 g/dL (12.0-16.0); Lymphocytes Absolute Auto 1600 /uL (1100-4500); Lymphocytes Percent Auto 35.6 % (25-40); Mean Corpuscular HGB Conc 34.8 % (30-36); Mean Corpuscular Hemoglobin 31.9 PG (26-34); Mean Corpuscular Volume 91.5 fL (80-100); Monocytes Absolute Auto 300 /uL (0-900); Monocytes Percent Auto 6.1 % (3-14); Neutrophils Absolute Auto 2400 /uL (1500-7000); Neutrophils Percent Auto 53.1 % (50-75); Platelet Count 259 X10^3/uL (150-400); Red Blood Cell Count 4.14 X10^6/uL (4.0-5.2); White Blood Cell Count 4.4 X10^3/uL (4.5-11.0)
[2024-02-12 05:31] LABS: BUN Creatinine Ratio 13.2 (6-22); Blood Urea Nitrogen 9 mg/dL (7-17); Calcium 8.4 mg/dL (8.4-10.2); Carbon Dioxide 29 mmol/L (22-32); Chloride 108 mmol/L (98-107); Estimated Glomerular Filt Rate > 60 mL/min (>60); Glucose 110 mg/dL (70-100); HEMOLYSIS < 15 (0-50); Potassium 3.7 mmol/L (3.4-5.1); Sodium 140 mmol/L (137-145)
[2024-02-12] MEDS: HEPARIN 5,000 UNIT/ML VIAL 5000 UNIT SUBCUT (09:01)
[2024-02-12] MEDS: GABAPENTIN 300 MG CAPSULE PO (09:01)
[2024-02-12] MEDS: BISACODYL 10 MG SUPP PR (09:01)
[2024-02-12 09:05] VITALS: BP 119/83; PULSE 78; RESP 16; TEMP 35.7; O2SAT 98
--- NOTE | 2024-02-12 11:05 | PM.DS.1 ---
History of Present Illness History of Present Illness Chief complaint: abd pain Narrative: From ED physician: 53-year-old female with history of small-bowel obstruction October 2023, prior abdominal pelvic surgeries include cholecystectomy and hysterectomy, still has her appendix, now with right-sided abdominal pain and sensation of abdominal distention similar to her October symptoms, she has passing a lot of gas yesterday, less so today, had a bowel movement this morning without black or red color that did not make her feel any better, some nausea without emesis. She denies injury trauma new activities. She denies fevers chills. She denies painful urination or frequency of urination, or sensation that she has not able to empty her bladder. She denies flank pain. She was also seen here last month for back pain, felt to be thoracic musculoskeletal in nature, awaiting epidural spinal injection in fact this Monday upcoming. She has tried Tylenol with no relief. She has had frequent burping, and flatulence, neither which seems to be helping her abdominal pain. Now: She was doing well until having a little bit of left upper quadrant aching yesterday. This morning she developed acute intense abdominal pain. The pain was constant and did not radiate. She also had some belching this morning. She did have flatus earlier in the day but none since arriving. In the emergency department imaging was somewhat concerning for an early partial small-bowel obstruction. She was admitted earlier this year with a similar episode. Dr. Recio of General surgery was contacted and will consult. She does not have a white count and is afebrile. She is history of and cholecystectomy. She denies recent diarrhea, blood per rectum. No fevers, chills or URI symptoms. Discharge Providers Provider Date of admission: 02/10/24 14:19 Discharge Date: 02/12/24 Primary care physician: Dima Cook MD Consults: 02/10/24 14:12 Consult to General Surgery Stat Comment: Consulting Provider: Anali Recio Reason for consultation: partial SBO Has provider been notified: Yes Discharge provider: Adarsh Crockett MD Summary Hospital Course Discharge Diagnosis: 1. Partial SBO, present on admission and resolved. 2. Chronic lumbar radiculopathy, present on admission and active. 3. Hypertension, present on admission and active. 4. BABS, present on admission and active. 5. HLD, present on admission and active. 6. Morbid obesity with BMI of 46, present on admission and active. Hospital Course: She was admitted with a clinical partial small-bowel obstruction. She was treated with nothing by mouth and analgesia as well as IV fluids and had improvement. She had a slow advance of diet and activity. She would continued improvement and was able to advance to a full diet and had a bowel movement on the day of discharge. She was followed by surgery while in the hospital. This is her 2nd episode. Status at Discharge Cognitive/behavioral status at discharge: oriented Functional status at discharge: independent ambulation Overall status at discharge: patient is back to baseline Time Spent with Patient Time spent: Greater than 30 minutes Exam Vital Signs (past 8 hours): - 02/12/24 09:05 Temperature 96.2 F L Pulse Rate 78 Respiratory Rate 16 Blood Pressure 119/83 Pulse Oximetry 98 Oxygen Flow Rate 0 Oxygen Delivery Method Room Air Oxygen Flow Rate 0 Narrative Exam Narrative: NAD, alert and oriented. Fluent speech. Lungs are clear, normal rate and effort. Heart is regular, no murmur gallop or rub. Abdomen is soft, non distended. Extremities are free of edema. Objective Imaging CT scan - abdomen: Radiologist's impression: IMPRESSION: Suspected partial, low-grade small bowel obstruction with a relative transition point in the right lower quadrant. There is fecal debris and fluid within the bowel distal to the transition point, and fecalized debris within the proximal small bowel. No mesenteric edema. Dictated by: Oscar Eric M.D. on 02/10/2024 at 13:52 Abdominal x-ray: Radiologist's impression: IMPRESSION: No radiographic evidence of small-bowel obstruction. Approved by: Frances Barrientos M.D.,Ph.D. on 02/11/2024 at 9:19 Labs 02/12/24 05:00 02/12/24 05:00 Labs: Laboratory Results - last 24 hr 02/12/24 05:00 WBC 4.4 L RBC 4.14 Hgb 13.2 Hct 37.9 MCV 91.5 MCH 31.9 MCHC 34.8 RDW 12.0 Plt Count 259 Neut % (Auto) 53.1 Lymph % (Auto) 35.6 [place] % (Auto) 6.1 Eos % (Auto) 4.9 H Baso % (Auto) 0.3 Neut # (Auto) 2400 Lymph # (Auto) 1600 [place] # (Auto) 300 Eos # (Auto) 200 Baso # (Auto) 0 Sodium 140 Potassium 3.7 Chloride 108 H Carbon Dioxide 29 BUN 9 Creatinine 0.68 Estimated GFR > 60 BUN/Creatinine Ratio 13.2 Glucose 110 H Calcium 8.4 PFSH Medical History Facet arthropathy, lumbar Lumbar radiculopathy, chronic History of melanoma Chronic thoracic back pain Mixed hyperlipidemia Sleep apnea (2015) Essential hypertension (~2018) BMI 40.0-44.9, adult Hypertension Surgical History Hx of cholecystectomy (11/04/19) History of bladder surgery Hx of section Family History Mother Liver failure Father Cancer Diabetes mellitus Hypertension Hyperlipidemia Brother Diabetes mellitus Hypertension Grandfather Diabetes mellitus Hypertension Grandmother Diabetes mellitus Hypertension Social History marital status: unknown details: single, one daughter household members: family and children occupational status: employed Smoking Status: Never smoker alcohol intake: current substance use type: does not use Discharge Assessment & Plan Assessment and Plan Assessment: 1. Partial SBO, present on admission and resolved. 2. Chronic lumbar radiculopathy, present on admission and active. 3. Hypertension, present on admission and active. 4. BABS, present on admission and active. 5. HLD, present on admission and active. 6. Morbid obesity with BMI of 46, present on admission and active. Plan of Treatment: Discharge home and resume regular diet. Follow up for recurrent symptoms. Discharge Plan Discharge Plan Patient Disposition: Home Provider Discharge Comment: Stable for discharge with apparent resolution of partial small bowel obstruction. Able to ambulate, eat, and had small bowel movement of the day of discharge. Discharge orders & Medications Prescriptions: Continued amlodipine 5 mg tablet 5 mg PO DAILY Qty: 90 3RF duloxetine 20 mg capsule,delayed release(DR/EC) 40 mg PO DAILY Qty: 180 3RF cyclobenzaprine 10 mg tablet 10 mg PO TID PRN (Reason: muscle spasm) Qty: 30 1RF celecoxib 100 mg capsule 100 mg PO BID Qty: 60 5RF Daily Multivitamin-Minerals Tablet 1 tab PO DAILY gabapentin 600 mg tablet 600 mg PO .COMPLEX Qty: 90 2RF Rx Instructions: 600 mg PO 1-2 PO Tid to begin at HS and titrate to nerve pain relief; Follow up/Referrals: Dima Cook MD [Primary Care Provider] - Diet/Activity/Treatments Diet: Regular Visit Report/Discharge Packet Instructions: DI for Small Bowel Obstruction Stand Alone Forms: Patient Portal/API Discharge Data Primary Care Provider: Dima Cook V Attending Provider: Adarsh Crockett Admit Date/Time: 02/10/24 14:19
[2024-02-12] MEDS: ACETAMINOPHEN 325 MG TABLET 650 MG PO (11:13)
--- NOTE | 2024-02-12 11:32 | CM.DPC ---
DCP Discharge Home Per MD, pt's partial SBO seems to have resolved as pt able to ambulate, tolerate diet, voiding independently and had small bm and medically stable to d/c home today with no identified barriers to discharge and outpt f/u. Per RN, no concerns noted and pt thankful to be discharging home today. Plan: Patient to d/c home today via family POV and outpt f/u and no further SW needs at this time. SARAH Larson
--- NOTE | 2024-02-12 11:38 | PC.NURSE ---
Patient has no further questions or concerns at this time, no IV in place, dressed and ready to leave. Declined wheelchair, walked out to discharge home with her daughter. Patient to follow up with her PCP as needed.
== END 2024-02-12 11:39 | disposition home or self-care (01) ==
LOC: ED 14:14 → AC 14:21
PROVIDERS: Admitting Provider Hospitalist; Emergency Provider Emergency Medicine; Family Provider Family Medicine; PCP Internal Medicine; Referring Provider Emergency Medicine; Visit Provider Hospitalist
DX: K56.600 Partial intestinal obstruction, unspecified as to cause (principal); E66.01 Morbid (severe) obesity due to excess calories; Z68.42 Body mass index [BMI] 45.0-49.9, adult; E78.5 Hyperlipidemia, unspecified; G47.33 Obstructive sleep apnea (adult) (pediatric); I10 Essential (primary) hypertension; M54.16 Radiculopathy, lumbar region
CPT/HCPCS: 36415; 74018; 74177; 80048; 80053; 81003; 81015; 83690; 84702; 85025; 87086; 96372; 96374; 96375; 99284; 99291; G0378; J1170; J1644; J2270; J2405; Q9967

== ENCOUNTER 2024-02-13 10:09 | Outpatient (CLI) | payer OTHER, SELFPAY ==
[2023-11-03 18:02] VITALS: BMI 39.4
[2024-02-10 15:59] VITALS: BMI 38.2
[2024-02-13] VITALS (8 sets, daily range): BP systolic 126–157; BP diastolic 75–86; PULSE 80–91; RESP 12–18; TEMP 36.7; O2SAT 96–100
--- NOTE | 2024-02-13 10:45 | DI.RAD.S_ITS ---
PROCEDURE: PAIN L/S FACET INJ/BLK 1ST CAITLIN INDICATIONS: Bilateral L5 and S1 medial branch block LA COMPARISON: None. FINDINGS: Fluoroscopic spot filming was performed to verify placement of spinal needles at the bilateral L5 and S1 levels, as labeled on the films. Appropriate locations of the needle tips were confirmed by injection of iodinated contrast. IMPRESSION: Intraprocedural examination demonstrates appropriate needle positioning. Approved by: Zackary Alexander M.D. on 02/13/2024 at 16:21
--- NOTE | 2024-02-13 10:59 | PC.NURSE ---
patient was d/c from hospital yesterday for SBO reports she is feeling much better. Denies any nausea, abdominal pain or bloating.
[2024-02-13] MEDS: MIDAZOLAM 2 MG/2 ML VIAL IV (11:08)
[2024-02-13] MEDS: LIDOCAINE 1% 20 ML 5 ML INJ (11:11)
[2024-02-13] MEDS: iopamidoL 15 ML VIAL 3 ML INJ (11:11)
[2024-02-13] MEDS: BUPIVACAINE 0.5% (PF) 10 ML VIAL 5 ML INJ (11:11)
--- NOTE | 2024-02-13 11:25 | PM.PROC.IR.1 ---
Date/Time/Diagnoses Date of procedure: 02/13/24 Time of procedure: 11:25 Pre-procedure diagnosis: 1. HNP WITH RADICULAR FEATURES, 2. MULTILEVEL CENTRAL STENOSIS, Post-procedure diagnosis: same Procedure Notes Procedure: 1. FLUOROSCOPICALLY GUIDED CONTRAST CONTROLLED INTERLAMINAR EPIDURAL STEROID INJECTION - L5/S1 Indications: Nadeen is referred by for treatment of Bilateral Foraminal Stenosis L>R LE symptoms. Physician: Dar James Total Fluoroscopy time (seconds): 10 Total sedation minutes: 10 Complications: none Procedure in detail & Post-procedure care: FINDINGS Multilevel Central Spinal Stenosis with Nerve Root Compression DESCRIPTION OF PROCEDURE Fluoroscopically guided, contrast-controlled L5/S1 translaminar epidural steroid injection. Following review of allergy and review of potential side effects and complications, including, but not necessarily limited to, infection, allergic reaction, local tissue breakdown, temporary as well as permanent nerve injury, paralysis, stroke and possible , the patient indicated that the patient understood and agreed to proceed. An informed consent document was signed by the patient, witnessed by a nurse, and placed in the patient's chart. Additionally, other treatment options including modalities, medications, and physical therapy were reviewed with the patient. After review of previous anaesthesic history and IV conscious sedation the patient was deemed safe to proceed with today?s procedure with IV conscious sedation as ASA class II designation. Safety time-out was performed to confirm patient ID, procedure to be performed and site of procedure. IV sedation was accomplished with a combination of 2mg of Versed and 50mcg of Fentanyl administered by the RN after DO order, titrated to patient comfort during the course of the procedure while the patient remained responsive to all verbal commands. In the prone position, following sterile prep and drape of the lumbar region, the L5/S1 translaminar space was identified fluoroscopically. The skin was anesthetized via a 25-gauge, 1.5-inch needle with 1% lidocaine solution. At this point, a 22-gauge short bevel spinal needle was atraumatically introduced and advanced under fluoroscopic guidance into the region of the L5/S1 translaminar space. Depth was confirmed on lateral view. Radiological data, including multiple fluoroscopic views of the lumbar spine, reveal a spinal needle at the L5/S1 translaminar space. Lateral views then show placement of the needle in the epidural space. Subsequent views show contrast material flowing superiorly and inferiorly in the epidural space. No vascular or intrathecal uptake is observed. At this point, using loss of resistance technique with saline and air, the epidural space was entered. This was confirmed following negative aspiration with injection of approximately 1.5cc of Isovue 200, showing excellent epidural flow without vascular or intrathecal uptake. At this point, 1 cc of 1% lidocaine solution combined with 2cc or 10mg of dexamethasone and 6mg of betamethasone was injected without incident. The patent tolerated the procedure without signs of symptoms of complications prior to transfer to the recovery area for further monitoring. The patient was then transferred to the recovery area where they were observed for an appropriate period of time after the injection. The patient reported a VAS score of 6 prior to the procedure and a post-procedure VAS of 0. POST OP INSTRUCTIONS The patient was provided a Pain Log to continue to record their response to the target-specific procedure prior to follow-up visit with their referring physician. Additionally, specific post-injection care instructions and a contact number to our office were provided if concerns arise regarding possible complications associated with the procedure are suspected.
--- NOTE | 2024-02-13 11:26 | P.PCN_ITS ---
Date/Time/Diagnoses Date of procedure: 02/13/24 Time of procedure: 11:26 Pre-procedure diagnosis: 1. FACET ARTHROPATHY Post-procedure diagnosis: same Procedure Notes Procedure: 1. BILATERAL- L5 and S1 MB BLOCKS Indications: Nadeen is referred by Dr. Cook for treatment of Bilateral Axial LBP. Physician: Dar James Total Fluoroscopy time (seconds): 10 Total sedation minutes: 10 Complications: none Procedure in detail & Post-procedure care: DESCRIPTION OF PROCEDURE Fluoroscopically guided, contrast-controlled bilateral L5 and S1 medial branch blocks with 0.5cc of 0.5% Marcaine. Following review of allergy and review of potential side effects and complications, including, but not necessarily limited to, infection, allergic reaction, local tissue breakdown, nerve injury, paralysis, stroke and possible , the patient indicated that the patient understood and agreed to proceed. An informed consent document was signed by the patient, witnessed by a nurse, and placed in the patient's chart. After review of previous anaesthesic history and IV conscious sedation the patient was deemed safe to proceed with today?s procedure with IV conscious sedation as ASA class II designation. Safety time-out was performed to confirm patient ID, procedure to be performed and site of procedure. IV sedation was accomplished with a combination of 2mg of Versed was administered by the RN after DO order, titrated to patient comfort during the course of the procedure while the patient remained responsive to all verbal commands In the prone position, following sterile prep and drape of the lumbar region, the right L5 and S1 anatomical location of the medial branch of the dorsal ramus was identified fluoroscopically. Subsequently an anesthetic skin wheal using 1% lidocaine solution was initiated at each of the anatomical spots. Subsequently then a 22-gauge 3.5-inch spinal needle was atraumatically introduced and advanced under fluoroscopic guidance at each of the corresponding sites at the right L5 and S1 MB. After negative aspiration, 0.2 cc of Isovue 200 was injected, confirming placement without vascular or intrathecal uptake. Subsequently then 0.5 cc of 0.5% Marcaine solution was injected at each of the corresponding sites at the right L5 and S1 medial branch locations. The identical procedure was replicated on the left. The patient tolerated the procedure well without signs or symptoms of complications. The patient tolerated the procedure well without signs or symptoms of complications prior to transfer to the recovery area continued monitoring without incident. Post-procedure, the patient was monitored initiating provocative activities to measure the amount of relief from block of the facetogenic pain. The patient reported a VAS of 7 prior to the procedure and a post-procedure VAS of 1. It has been a pleasure to assist in the diagnostic and therapeutic care of your patient. POST OP INSTRUCTIONS The patient was provided with a Pain Log to complete over the next several hours and subsequent days prior to the patient's follow up with the ordering physician. If the patient has reconstructive dentist relief to the solution applied, then they may be a candidate for medial branch rhizotomy. The patient is aware, was provided, once again, with a Pain Log and will follow up with the referring physician for review and clinical correlation.
== END 2024-02-13 11:43 | disposition home or self-care (01) ==
LOC: RAD 10:12
PROVIDERS: Family Provider Family Medicine; PCP Internal Medicine; Referring Provider Physical Medicine & Rehabilitation; Visit Provider Physical Medicine & Rehabilitation
DX: M47.817 Spondylosis without myelopathy or radiculopathy, lumbosacral region (principal)
CPT/HCPCS: 64493; 99152; J2250

== ENCOUNTER → 2024-03-14 14:09 | Outpatient (CLI) | payer OTHER, SELFPAY ==
[2024-02-10 15:59] VITALS: BMI 38.2
[2024-03-14 15:37] LABS: Follicle Stimulating Hormone 29.7 mIU/mL
== END ==
LOC: LAB 14:10
PROVIDERS: Family Provider Family Medicine; PCP Internal Medicine; Referring Provider Internal Medicine; Visit Provider Internal Medicine
DX: N95.1 Menopausal and female climacteric states (principal)
CPT/HCPCS: 36415; 83001

== ENCOUNTER 2024-04-02 12:14 | Outpatient (CLI) | payer OTHER, SELFPAY ==
[2024-02-10 15:59] VITALS: BMI 38.2
[2024-04-02] VITALS (8 sets, daily range): BP systolic 121–160; BP diastolic 78–86; PULSE 73–84; RESP 11–18; TEMP 35.7; O2SAT 94–100
--- NOTE | 2024-04-02 13:00 | DI.RAD.S_ITS ---
PROCEDURE: PAIN L/S FACET INJ/BLK 1ST CAITLIN INDICATIONS: Bilateral L5 and S1 medial branch block SA COMPARISON: [facility], , PAIN L/S FACET INJ/BLK 1ST CAITLIN, 02/13/2024, 11:11. FINDINGS: Fluoroscopic spot filming was performed to verify placement of spinal needles at the bilateral L5 and S1 level(s), as labeled on the films. Appropriate location(s) of the needle tip(s) was confirmed by injection of iodinated contrast. IMPRESSION: Intra procedural examination demonstrating appropriate positions of the needles. Dictated by: Srini Mathis M.D. on 04/02/2024 at 14:24 Approved by: Srini Mathis M.D. on 04/02/2024 at 14:26
[2024-04-02] MEDS: MIDAZOLAM 2 MG/2 ML VIAL IV (13:18)
[2024-04-02] MEDS: LIDOCAINE 1% 20 ML 5 ML INJ (13:24)
[2024-04-02] MEDS: LIDOCAINE 2% INJ MDV 20ML 5 ML INJ (13:24)
[2024-04-02] MEDS: iopamidoL 15 ML VIAL 3 ML INJ (13:25)
--- NOTE | 2024-04-02 13:41 | P.PCN_ITS ---
Date/Time/Diagnoses Date of procedure: 04/02/24 Time of procedure: 13:41 Pre-procedure diagnosis: 1. FACET ARTHROPATHY Post-procedure diagnosis: same Procedure Notes Procedure: 1. BILATERAL- L5 and S1 DIAGNOSTIC MB BLOCKS with SA Anesthetic Indications: Nadeen is referred by Dr. Cook for treatment of Bilateral Axial LBP. Physician: Dar James Total Fluoroscopy time (seconds): 8 Total sedation minutes: 14 Complications: none Procedure in detail & Post-procedure care: DESCRIPTION OF PROCEDURE Fluoroscopically guided, contrast-controlled bilateral L5 and S1 medial branch blocks with 0.5cc of 2% Lidocaine. Following review of allergy and review of potential side effects and complications, including, but not necessarily limited to, infection, allergic reaction, local tissue breakdown, nerve injury, paralysis, stroke and possible , the patient indicated that the patient understood and agreed to proceed. An informed consent document was signed by the patient, witnessed by a nurse, and placed in the patient's chart. After review of previous anaesthesic history and IV conscious sedation the patient was deemed safe to proceed with today's procedure with IV conscious sedation as ASA class II designation. Safety time-out was performed to confirm patient ID, procedure to be performed and site of procedure. IV sedation was accomplished with a combination of 2mg of Versed was administered by the RN after DO order, titrated to patient comfort during the course of the procedure while the patient remained responsive to all verbal commands In the prone position, following sterile prep and drape of the lumbar region, the right L5 and S1 anatomical location of the medial branch of the dorsal ramus was identified fluoroscopically. Subsequently an anesthetic skin wheal using 1% lidocaine solution was initiated at each of the anatomical spots. Subsequently then a 22-gauge 3.5-inch spinal needle was atraumatically introduced and advanced under fluoroscopic guidance at each of the corresponding sites at the right L5 and S1 MB. After negative aspiration, 0.2cc of Isovue 200 was injected, confirming placement without vascular or intrathecal uptake. Subsequently then 0.5cc of 2% Lidocaine solution was injected at each of the corresponding sites at the right L5 and S1 medial branch locations. The identical procedure was replicated on the left. The patient tolerated the procedure well without signs or symptoms of complications prior to transfer to the recovery area continued monitoring without incident. Post-procedure, the patient was monitored initiating provocative activities to measure the amount of relief from block of the facetogenic pain. The patient reported a VAS of 7 prior to the procedure and a post-procedure VAS of 1. It has been a pleasure to assist in the diagnostic and therapeutic care of your patient. POST OP INSTRUCTIONS The patient was provided with a Pain Log to complete over the next several hours and subsequent days prior to the patient's follow up with the ordering physician. If the patient has care process manager relief to the solution applied, then they may be a candidate for medial branch rhizotomy. The patient is aware, was provided, once again, with a Pain Log and will follow up with the referring physician for review and clinical correlation
--- NOTE | 2024-04-02 13:54 | PC.NURSE ---
Patient arrived to recovery and upon transfer from the wheelchair to the recliner it was noted that she had some left leg weakness. Patient was reassessed at 1350 and her left leg was still weak. Patient sat back down in the recliner.
--- NOTE | 2024-04-02 14:08 | PC.NURSE ---
Patient's leg weakness reassessed by standing up from the recliner and taking steps in place. Patient is still not back to her baseline. Patient sat back in the recliner.
--- NOTE | 2024-04-02 14:26 | PC.NURSE ---
Patient's lower extremity weakness reassessed by standing and taking steps in place. Patient is still unsteady on her feet, but she is improving. Patient sat back in recliner.
--- NOTE | 2024-04-02 15:01 | PC.NURSE ---
Patient's lower extremity weakness reassessed by Dr. James before discharge and Dr. James stated that she was able to be discharged.
== END 2024-04-02 14:58 | disposition home or self-care (01) ==
PROVIDERS: Family Provider Family Medicine; PCP Internal Medicine; Referring Provider Physical Medicine & Rehabilitation; Visit Provider Physical Medicine & Rehabilitation
DX: M47.817 Spondylosis without myelopathy or radiculopathy, lumbosacral region (principal)
CPT/HCPCS: 64493; 99152; J2250

== ENCOUNTER 2024-08-20 07:32 | Outpatient (CLI) | payer OTHER, SELFPAY ==
[2024-02-10 15:59] VITALS: BMI 38.2
[2024-08-20] VITALS (13 sets, daily range): BP systolic 120–144; BP diastolic 78–93; PULSE 65–103; RESP 15–17; TEMP 36.3; O2SAT 96–100
--- NOTE | 2024-08-20 07:34 | DI.RAD.S_ITS ---
PROCEDURE: PAIN L/S MED/LAT N RFA BILAT INDICATIONS: Bilateral L5 and S1 medial branch RFA COMPARISON: None. FINDINGS: Fluoroscopic spot filming was performed to verify placement of spinal needles at the right L5-S1 level(s), as labeled on the films. Appropriate location(s) of the needle tip(s) was confirmed by injection of iodinated contrast. IMPRESSION: Fluoroscopic guidance. Dictated by: Oscar Eric M.D. on 08/20/2024 at 12:20 Approved by: Oscar Eric M.D. on 08/20/2024 at 12:20
[2024-08-20] MEDS: MIDAZOLAM 2 MG/2 ML VIAL 1 MG IV ×2 (08:17→08:34)
[2024-08-20] MEDS: BUPIVACAINE 0.5% (PF) 10 ML VIAL 5 ML INJ (08:26)
[2024-08-20] MEDS: LIDOCAINE 1% 20 ML 5 ML INJ (08:26)
--- NOTE | 2024-08-20 08:58 | P.PCN_ITS ---
Date/Time/Diagnoses Date of procedure: 08/20/24 Time of procedure: 08:58 Pre-procedure diagnosis: 1. RECALCITRANT FACET ARTHROPATHY Post-procedure diagnosis: same Procedure Notes Procedure: 1. BILATERAL L5 MEDIAL BRANCH RADIOFREQUENCY NEUROTOMY AND S1 DORSAL RAMUS BRANCH RADIOFREQUENCY NEUROTOMY Indications: Nadeen is referred by Dr. Cook for treatment of facet arthropathy. Physician: Dar James Total Fluoroscopy time (seconds): 19 Total sedation minutes: 36 Complications: none Procedure in detail & Post-procedure care: DESCRIPTION OF PROCEDURE Bilateral L4 and L5 medial branch radiofrequency neurotomy and bilateral S1 dorsal ramus radiofrequency neurotomy under fluoroscopy with conscious sedation. The patient is well known to this clinic having undergone previous facet injections with good but temporary relief. The patient has experienced appropriate, concordant relief with previous facet and median branch blocks but the patient's pain has been recalcitrant to further conservative measures. Therefore, based upon the patient's relief and persistent symptoms, the patient is considered an appropriate candidate for facet rhizotomy. All of the patient's questions regarding the risks versus benefits of the procedure, including, but not limited to, bleeding, infection, temporary as well as lasting nerve injury, paralysis, stroke, and , as well treatment alternatives were answered to satisfaction. After obtaining informed consent, denial of pertinent drug allergies, as well as being made aware of the potential risks of bleeding, infection, spinal cord trauma, paralysis, temporary and permanent nerve damage, seizure, stroke, and possible , the patient was brought to the fluoroscopy suite and positioned prone on the fluoroscopy table. The lumbar region was prepped in usual sterile fashion and covered with a fenestrated drape in the usual sterile fashion. Appropriate monitors applied including pulse oximeter, pulse, and blood pressure for regular monitoring throughout the procedure. After review of previous anaesthesic history and IV conscious sedation the patient was deemed safe to proceed with today's procedure with IV conscious sedation as ASA class II designation. Safety time-out was performed to confirm patient ID, procedure to be performed and site of procedure. IV sedation was accomplished with a combination of 2mg of Versed administered by the RN after DO order, titrated to patient comfort during the course of the procedure while the patient remained responsive to all verbal commands. After local infiltration using 1% lidocaine, under fluoroscopic guidance, a 10- cm RF insulated needle with a 10-mm active tip was positioned parallel to the junction of the right sacral ala and the superior articulating process where the S1 dorsal ramus resides. Needle placement was confirmed with motor stimulation of .5v on the right which produced local stimulation without radicular component. The stimulation was then increased to 2v with, once again, only local multifidus stimulation without radicular component. The needle was then removed and the identical procedure was performed along the length of the right L5 medial branch with motor stimulation at .7v on the right. The medial branches were then anesthetised with 0.5% Marcaine. This was then followed by two discreet lesions performed at 80 degrees Celsius for 90 seconds each. The identical procedure was repeated on the left. The patient tolerated the procedure well without signs or symptoms of complications prior to transfer to the recovery area continued monitoring with out incident. The patient was then transferred to the recovery area where they were observed for an appropriate period of time after the injection. The patient reported a VAS score of 9 prior to the procedure and a post-procedure VAS of 0. POST OP INSTRUCTIONS The patient was provided a Pain Log to continue to record the patient's response to the target-specific procedure prior to the patient's follow-up visit with the referring physician. Additionally, specific post-injection care instructions and a contact number to our office were provided if concerns arise regarding possible complications associated with the procedure are suspected.
== END 2024-08-20 09:20 | disposition home or self-care (01) ==
PROVIDERS: PCP Internal Medicine; Referring Provider Physical Medicine & Rehabilitation; Visit Provider Physical Medicine & Rehabilitation
DX: M47.817 Spondylosis without myelopathy or radiculopathy, lumbosacral region; M47.816 Spondylosis without myelopathy or radiculopathy, lumbar region
CPT/HCPCS: 64635; 64636; 99152; 99153; J2250

== ENCOUNTER 2024-11-17 03:30 | Emergency (ER) | payer OTHER, SELFPAY ==
[2024-02-10 15:59] VITALS: BMI 38.2
[2024-11-17 03:35] VITALS: BP 186/91; PULSE 79; O2SAT 98
[2024-11-17 03:37] VITALS: BP 186/91; PULSE 83; RESP 16; TEMP 36.6; O2SAT 98; BMI 38.0
--- NOTE | 2024-11-17 03:43 | DI.CT.S_ITS ---
PROCEDURE: CT ABDOMEN PELVIS W CON INDICATIONS: epigastric pain TECHNIQUE: After the administration of intravenous contrast, axial sections acquired from the lung bases to the pubic symphysis. Coronal and sagittal reformats were performed. For radiation dose reduction, the following was used: automated exposure control, adjustment of mA and/or kV according to patient size. COMPARISON: Merged With [facility], CT, CT ABDOMEN PELVIS W CON, 02/10/2024, 13:35. FINDINGS: Image quality: Diagnostic. Lower Chest: No significant findings. ABDOMEN: Liver: No solid mass. Gallbladder: Cholecystectomy. Biliary ducts: No biliary dilation. Pancreas: No ductal dilation. Spleen: Size is within normal limits. Adrenal Glands: No adrenal nodules. Kidneys and Ureters: No hydronephrosis. No solid mass. No complex renal cystic lesion which requires follow up. Stomach and Bowel: Large amount of fecal debris throughout the colon particularly the right colon small bowel shows in fluid distension with wall enhancement distally Multiple diverticula arise from the sigmoid colon without evidence of diverticulitis. Peritoneum: No abnormal intraperitoneal fluid. No free air. Ventral Wall: No significant ventral hernia. Abdominal Nodes: No retroperitoneal or mesenteric adenopathy by size criteria. Vessels: Aorta and inferior vena cava are normal in size. PELVIS: Pelvic Organs: Unremarkable. Bladder: No bladder wall thickening, accounting for underdistention. Pelvic Nodes: No enlarged lymph nodes. Miscellaneous: No inguinal hernias are seen. Bones: No aggressive osseous abnormality. IMPRESSION: Probable mild enteritis. Large amount of fecal debris throughout the colon. No obstruction Note: This final report is concordant with the preliminary after-hours interpretation provided by [employer] Approved by: Artie Alicea M.D. on 11/17/2024 at 9:09
--- NOTE | 2024-11-17 03:44 | EKG_ITS ---
[address] [id number] [address], [place] [address] Test Date: 2024-11-17 Pat Name: Nadeen Holly Department: [facility] Room: Gender: Female Processing Specialist: JONATHAN MELISSA : 1970 Requested By: Order Number: [id number] Reading MD: Rashaun Heath Measurements Intervals [place] Rate: 76 P: 63 LA: 162 QRS: 57 QRSD: 84 T: 47 QT: 364 QTc: 409 Interpretive Statements Normal sinus rhythm Electronically Signed On 11-17-2024 18:57:55 PST by Rashaun Heath
--- NOTE | 2024-11-17 03:44 | DI.RAD.S_ITS ---
PROCEDURE: XR CHEST 1V INDICATIONS: epigastric pain TECHNIQUE: One view of the chest was acquired. COMPARISON: None. FINDINGS: Surgical changes and devices: None. Lungs and pleura: Lungs are clear. No pleural effusions or pneumothorax. Low lung volumes accentuate pulmonary interstitium and heart size. Mediastinum: Mediastinal contours appear normal. Heart size is normal. Bones and chest wall: No suspicious bony lesions. Overlying soft tissues appear unremarkable. IMPRESSION: No acute cardiopulmonary abnormality is seen. Note: This final report is concordant with the preliminary after-hours interpretation provided by [employer] Approved by: Artie Alicea M.D. on 11/17/2024 at 8:54
--- NOTE | 2024-11-17 03:45 | ED.ABDPAIN ---
HPI - Abdominal Pain General Chief Complaint: Abdominal Pain Stated Complaint: Stomach pains x 8 hours Time Seen by Provider: 11/17/24 03:42 Source: patient Mode of arrival: Ambulatory History of Present Illness HPI narrative: 54-year-old female with a past medical history of hypertension comes into the ED from home for evaluation of epigastric pain. She describes as a pressure in nature nausea no vomiting. States it started spontaneously proximally 8-9 hours prior to arrival. Denies any radiation. Nothing making it better or worse. She states that she did have an episode of nonbilious nonbloody emesis prior to arrival states that this did not change any of her symptoms. She denies any other symptoms such as headache visual disturbances chest pain shortness of breath fever chills or any other GI/ symptoms time. States that she has had her gallbladder removed proximally 5 years ago. Related Data Home Medications Medication Instructions Recorded Confirmed multivitamin with minerals (Daily 1 tab PO DAILY 12/07/21 11/11/24 Multivitamin-Minerals tablet) mecobalamin (vitamin B12) 1,000 1,000 mcg PO DAILY 03/14/24 11/11/24 mcg chewable tablet metformin 500 mg tablet,extended 500 mg PO BID 11/11/24 11/11/24 release 24 hr Previous Rx's Medication Instructions Recorded cyclobenzaprine 10 mg tablet 10 mg PO TID PRN muscle spasm #30 01/18/24 tabs celecoxib 100 mg capsule 100 mg PO BID #60 caps 02/05/24 amlodipine 5 mg tablet 5 mg PO DAILY HTN #90 tabs 05/27/24 tramadol 50 mg tablet 50 mg PO TID PRN pain #30 tabs 06/05/24 duloxetine 20 mg capsule,delayed 40 mg (2 x 20 mg) PO DAILY #180 10/07/24 release caps gabapentin 600 mg tablet 1,200 mg (2 x 600 mg) PO TID #180 11/14/24 tabs aluminum-mag hydroxide-simethicone 10 ml PO Q6H PRN dyspepsia #3,000 11/17/24 200 mg-200 mg-20 mg/5 mL oral susp mL (Maalox Advanced) Allergies Allergy/AdvReac Type Severity Reaction Status Date / Time No Known Drug Allergies Allergy Verified 11/11/24 14:33 Review of Systems Review of Systems Narrative: General: Denies fever, chills, weight loss HEENT: Denies headache, eye drainage, eye irritation, head trauma, sore throat, voice change Cardiovascular: Denies any chest pain, palpitations, shortness of breath, tachycardia Respiratory: Denies any shortness of breath, cough, wheeze, stridor GI/: Positive abdominal pain, nausea, vomiting, denies diarrhea, bright red blood per rectum, melanotic stools, urinary frequency, urinary retention, dysuria, hematuria MSK: Denies any joint pain, muscle pains, swelling Skin: Denies any rashes, lesions, discoloration Neuro: Denies any headache, lightheadedness, dizziness, fainting, weakness Psych: Denies SI/HI Patient History Medical History BMI 40.0-44.9, adult Chronic thoracic back pain Essential hypertension (~2018) Facet arthropathy, lumbar History of melanoma Hypertension Lumbar radiculopathy, chronic Menopausal syndrome Mixed hyperlipidemia Sleep apnea (2014) Surgical History History of bladder surgery Hx of section Hx of cholecystectomy (11/04/19) Family History Mother Liver failure Father Cancer Diabetes mellitus Hypertension Hyperlipidemia Brother Diabetes mellitus Hypertension Grandfather Diabetes mellitus Hypertension Grandmother Diabetes mellitus Hypertension Social History marital status: unknown details: single, one daughter household members: family and children occupational status: employed Smoking Status: Never smoker alcohol intake: current substance use type: does not use Smoking Status: Never smoker alcohol intake frequency: holidays/special occasions only Exam Narrative Exam Narrative: General: Cooperative, comfortable, well-developed, not in acute distress HEENT: Normocephalic, atraumatic, PERRLA, normal sclera, eyelids normal, Neck: Active full range of motion, atraumatic Chest: Normal to inspection, negative crepitus, no overlying erythema ecchymosis Respiratory: Normal respiratory effort, not in acute respiratory distress, clear to auscultation bilaterally negative cough, wheeze, tachypnea, rhonchi, rales Cardiology: Regular rate rhythm negative gallop, murmur, rubs GI/: Normal to inspection, soft, nonrigid, mild tenderness to palpation of the epigastric region, exam deferred MSK: Full range of active range of motion of all 4 extremities, atraumatic Skin: No rashes lesions noted Neuro: Alert awake oriented x3, moves all 4 extremities spontaneously, cranial nerves intact, able to answer all questions appropriately follows commands appropriately Psych: Cooperative, negative suicidal or homicidal ideations Initial Vital Signs Initial Vital Signs: Vital Signs Pulse Rate 79 11/17/24 03:35 Blood Pressure 186/91 H 11/17/24 03:35 Pulse Oximetry 98 11/17/24 03:35 Course Orders Ordered: ED Orders 11/17/24 03:42 Complete Blood Count AUTO DIFF Stat Comprehensive Metabolic Panel Stat Lipase Stat 11/17/24 03:43 CT abdomen pelvis w con Stat 11/17/24 03:44 CXR [XR chest 1V] Stat MAG [Magnesium] Stat Troponin & CK Cardiac Panel Stat EKG-12 Lead Stat Discontinued Medications Sodium Chloride (Normal Saline 0.9%) 1,000 mls @ 1,000 mls/hr IV BOLUS ONE Stop: 11/17/24 04:41 Last Infusion: 11/17/24 05:01 Dose: Infused Morphine Sulfate (Morphine 4 Mg/Ml Inj) 4 mg IV NOW ONE Stop: 11/17/24 03:43 Last Admin: 11/17/24 03:50 Dose: 4 mg Ondansetron HCl (Ondansetron 4 Mg/2 Ml Inj) 4 mg IV NOW ONE Stop: 11/17/24 03:43 Last Admin: 11/17/24 03:50 Dose: 4 mg Vital Signs Vital signs: Vital Signs - 8 hr 11/17/24 03:35 11/17/24 03:35 11/17/24 03:37 Temperature 98 F Pulse Rate 79 83 Respiratory Rate 16 Blood Pressure 186/91 H 186/91 H Pulse Oximetry 98 98 Oxygen Delivery Method Room Air 11/17/24 04:00 11/17/24 04:01 11/17/24 04:01 Temperature Pulse Rate 83 78 Respiratory Rate Blood Pressure 158/79 H Pulse Oximetry 95 95 Oxygen Delivery Method 11/17/24 04:30 Temperature Pulse Rate 78 Respiratory Rate Blood Pressure Pulse Oximetry 94 Oxygen Delivery Method MDM - Abdominal Pain Differential Diagnosis Differential diagnosis: Likely abdominal pain, gastroenteritis, pancreatitis and other (ACS, electrolyte abnormality) Lab Data 11/17/24 03:42 11/17/24 03:42 Labs: Lab Results 11/17/24 Range/Units 03:42 WBC 6.6 (4.5-11.0) X10^3/uL RBC 4.72 (4.0-5.2) X10^6/uL Hgb 15.0 (12.0-16.0) g/dL Hct 43.2 (36-46) % MCV 91.6 (80-100) fL MCH 31.8 (26-34) PG MCHC 34.6 (30-36) % RDW 12.4 (11.6-14.8) % Plt Count 330 (150-400) X10^3/uL Neut % (Auto) 68.9 (50-75) % Lymph % (Auto) 24.2 L (25-40) % Colbert % (Auto) 5.5 (3-14) % Eos % (Auto) 0.8 L (2-4) % Baso % (Auto) 0.6 (0-2) % Neut # (Auto) 4600 (3743-0019) /uL Lymph # (Auto) 1600 (6304-5596) /uL Colbert # (Auto) 400 (0-900) /uL Eos # (Auto) 100 (0-450) /uL Baso # (Auto) 0 (0-100) /uL Sodium 140 (137-145) mmol/L Potassium 4.1 (3.4-5.1) mmol/L Chloride 100 (98-107) mmol/L Carbon Dioxide 30 (22-32) mmol/L BUN 18 H (7-17) mg/dL Creatinine 0.82 (0.52-1.04) mg/dL Estimated GFR > 60 (>60) mL/min BUN/Creatinine Ratio 22.0 (6-22) Glucose 98 (70-100) mg/dL Calcium 9.3 (8.4-10.2) mg/dL Magnesium 2.0 (1.6-2.3) mg/dL Total Bilirubin 0.7 (0.2-1.3) mg/dL AST 28 (14-36) IU/L ALT 23 (<35) IU/L Alkaline Phosphatase 54 (38-126) U/L Total Creatine Kinase 66 (30-135) U/L Troponin I < 0.012 (0.01-0.034) ng/mL Total Protein 7.6 (6.3-8.2) g/dL Albumin 4.6 (3.5-5.0) g/dL Globulin 3.0 (1.7-4.1) g/dL Albumin/Globulin Ratio 1.5 (1.0-2.8) Lipase 78 (23-300) U/L Imaging Data CT scan - abdomen/pelvis: Radiologist's Impression: Preliminary read showing scattered small bowel air-fluid levels within the right abdomen and right pelvis, this is nonspecific, this can be seen with infectious or inflammatory enteritis versus early or partial small bowel obstruction, clinical correlation is advised. Moderate to large amount of stool throughout the colon without findings of colitis, air-filled distention of the stomach with ingested debris seen within the posterior portion of the proximal stomach, this may be related to recent ingestion of a meal or delayed gastric emptying Chest x-ray: Radiologist's Impression: Preliminary read showing no acute cardiopulmonary abnormalities ECG Data Interpretation: EKG interpreted ED physician sinus 76 beats per minute QTC [address] changes no STEMI MDM Narrative Medical decision making narrative: 54-year-old female history of hypertension hyperlipidemia presents for epigastric pain started abruptly 8-9 hours prior to arrival. No radiation of the symptoms denies any chest pain shortness of breath fever chills or any other GI/ symptoms. Had an episode of nonbilious nonbloody emesis prior to arrival. Patient had EKG, CT scan of the abdomen and pelvis, chest x-ray, lab work performed here in the emergency department. Patient without any leukocytosis, Chem panel unremarkable. EKG nonischemic in nature. Troponin negative. Chest x-ray without any acute cardiopulmonary abnormalities. CT scan showing nonspecific findings, stating scattered small bowel air-fluid levels without actual transition point nonspecific in nature probable infectious inflammatory versus early partial small-bowel obstruction with large to moderate amount of stool throughout the colon as well as air-filled distention of the stomach with ingested debris he is related to recent ingestion of a malar delayed gastric emptying. Patients symptoms epigastric in nature, therefore patient's symptoms more likely secondary to delayed gastric emptying and/or gastritis instead of earlier partial small bowel obstruction, patient states that she has moved her bowels earlier today. Is tolerating p.o. liquids and solids here. Patient did have improvement of symptoms after Zofran morphine and Maalox. Patient was given strict return precautions she verbalized understanding of this and agrees to being discharged home with outpatient follow up 0510: Patient was re-evaluated no new complaints at this time, states improvement of symptoms but still having slight pain to the epigastric region, additional medications ordered. Did inform her of her current negative workup and just need for CT scan results. She understands and agrees with waiting. Discharge Plan Departure Patient Disposition: Home Clinical Impression: Acute epigastric pain Instructions: DI for Abdominal Pain-Adult Activity Restrictions/Additional Instructions: Please follow up with primary care and GI in outpatient setting Please return to the emergency department if your symptoms get worse Please read the discharge instructions sheet carefully and bring all papers to all doctor follow-up visits, as it may contain information that your doctor may want to see. Disease processes change and evolve, if your symptoms worsen or if you develop any new symptoms that are concerning to you please return for evaluation. Your evaluation today does not show any evidence of any life-threatening/serious illnesses requiring admission to the hospital or surgery. Please follow-up with your doctor for re-evaluation in approximately 1 day. Seek immediate medical attention for any worrisome symptoms. *If you do not have a primary care provider please contact the [facility] Resource line at [phone]. They will ask some questions about your medical history and help get you set up with a doctor in the community. Prescriptions: New alum-mag hydroxide-simeth [Maalox Advanced] 200-200-20 mg/5 mL suspension 10 ml PO Q6H PRN (Reason: dyspepsia) Qty: 3000 0RF No Action cyclobenzaprine 10 mg tablet 10 mg PO TID PRN (Reason: muscle spasm) Qty: 30 1RF Hold Instructions: Home Medication placed on hold at Doctor's office celecoxib 100 mg capsule 100 mg PO BID Qty: 60 5RF Hold Instructions: Home Medication placed on hold at Doctor's office amlodipine 5 mg tablet 5 mg PO DAILY Qty: 90 3RF duloxetine 20 mg capsule,delayed release(DR/EC) 40 mg PO DAILY Qty: 180 3RF gabapentin 600 mg tablet 1,200 mg PO TID MDD 6 TABS Qty: 180 1RF Rx Instructions: THIS MEDICATION CAN BE SEDATING. USE IT FOR NERVE PAIN Daily Multivitamin-Minerals Tablet 1 tab PO DAILY mecobalamin (vitamin B12) 1,000 mcg tablet,chewable 1,000 mcg PO DAILY metformin 500 mg tablet extended release 24 hr 500 mg PO BID tramadol 50 mg tablet 50 mg PO TID PRN (Reason: pain) Qty: 30 1RF Referrals: Dima Cook MD [Primary Care Provider] - Stand Alone Forms: Patient Portal/API/Survey
--- NOTE | 2024-11-17 03:48 | PC.NURSE ---
IV started in left AC, labs sent
[2024-11-17] MEDS: SODIUM CHLORIDE 0.9% 1,000 ML 1000 ML IV (03:50)
[2024-11-17] MEDS: ONDANSETRON 4 MG/2 ML INJ IV (03:50)
[2024-11-17] MEDS: MORPHINE 4 MG/ML INJ IV (03:50)
[2024-11-17 03:53] LABS: Add Manual Diff / Slide Review NO; Basophils Absolute Auto 0 /uL (0-100); Basophils Percent Auto 0.6 % (0-2); Eosinophils Absolute Auto 100 /uL (0-450); Eosinophils Percent Auto 0.8 % (2-4); Hematocrit 43.2 % (36-46); Lymphocytes Absolute Auto 1600 /uL (1100-4500); Lymphocytes Percent Auto 24.2 % (25-40); Mean Corpuscular HGB Conc 34.6 % (30-36); Mean Corpuscular Hemoglobin 31.8 PG (26-34); Mean Corpuscular Volume 91.6 fL (80-100); Monocytes Absolute Auto 400 /uL (0-900); Monocytes Percent Auto 5.5 % (3-14); Neutrophils Absolute Auto 4600 /uL (1500-7000); Neutrophils Percent Auto 68.9 % (50-75); Platelet Count 330 X10^3/uL (150-400); Red Blood Cell Count 4.72 X10^6/uL (4.0-5.2); Red Cell Distribution Width 12.4 % (11.6-14.8); White Blood Cell Count 6.6 X10^3/uL (4.5-11.0)
[2024-11-17 03:59] LABS: Creatine Kinase 66 U/L (30-135)
[2024-11-17 04:00] VITALS: PULSE 83; O2SAT 95
[2024-11-17 04:00] LABS: Alanine Aminotransferase 23 IU/L (<35); Albumin 4.6 g/dL (3.5-5.0); Albumin Globulin Ratio 1.5 (1.0-2.8); Alkaline Phosphatase 54 U/L (38-126); Aspartate Aminotransferase 28 IU/L (14-36); Bilirubin Total 0.7 mg/dL (0.2-1.3); Blood Urea Nitrogen 18 mg/dL (7-17); Calcium 9.3 mg/dL (8.4-10.2); Carbon Dioxide 30 mmol/L (22-32); Chloride 100 mmol/L (98-107); Estimated Glomerular Filt Rate > 60 mL/min (>60); Glucose 98 mg/dL (70-100); HEMOLYSIS < 15 (0-50); Lipase 78 U/L (23-300); Potassium 4.1 mmol/L (3.4-5.1); Sodium 140 mmol/L (137-145); Total Protein 7.6 g/dL (6.3-8.2)
[2024-11-17 04:01] VITALS: BP 158/79; PULSE 78; O2SAT 95
[2024-11-17 04:12] LABS: Troponin I < 0.012 ng/mL (0.01-0.034)
[2024-11-17 04:30] VITALS: PULSE 78; O2SAT 94
[2024-11-17 05:00] VITALS: PULSE 81; O2SAT 95
[2024-11-17] MEDS: MAG HYDROX/ALUM/SIMETH 30 ML UDC PO (05:17)
[2024-11-17] MEDS: ONDANSETRON 4 MG ODT PREPACK 1 BOTTLE MISC (05:47)
== END 2024-11-17 05:52 | disposition home or self-care (01) ==
PROVIDERS: Emergency Provider Student in an Organized Health Care Education/Training Program; PCP Internal Medicine
DX: R10.13 Epigastric pain (principal); I10 Essential (primary) hypertension; E78.5 Hyperlipidemia, unspecified
CPT/HCPCS: 36415; 71045; 74177; 80053; 82550; 83690; 83735; 84484; 85025; 93005; 96361; 96374; 96375; 99284; J2270; J2405; Q9967

== ENCOUNTER 2024-11-21 10:34 | Emergency (ER) | payer OTHER, SELFPAY ==
[2024-02-10 15:59] VITALS: BMI 38.2
[2024-11-21 10:47] VITALS: BP 184/90; PULSE 86; RESP 15; TEMP 36.1; O2SAT 97; BMI 36.8
--- NOTE | 2024-11-21 10:57 | EKG_ITS ---
[address] [address] Test Date: 2024-11-21 Pat Name: Nadeen Holly Department: [facility] Room: Gender: Female Delivery Of Shopping News: PATT : 1970 Requested By: Order Number: [id number] Reading MD: Adarsh Crockett Measurements Intervals [place] Rate: 82 P: 58 [place]: 160 QRS: 46 QRSD: 84 T: 36 QT: 364 QTc: 425 Interpretive Statements Normal sinus rhythm Electronically Signed On 11-21-2024 14:47:57 PST by Adarsh Crockett
[2024-11-21 11:38] LABS: Add Manual Diff / Slide Review NO; Basophils Absolute Auto 0 /uL (0-100); Basophils Percent Auto 0.4 % (0-2); Eosinophils Absolute Auto 200 /uL (0-450); Eosinophils Percent Auto 1.9 % (2-4); Hematocrit 44.7 % (36-46); Hemoglobin 15.4 g/dL (12.0-16.0); Lymphocytes Absolute Auto 1800 /uL (1100-4500); Lymphocytes Percent Auto 17.3 % (25-40); Mean Corpuscular HGB Conc 34.4 % (30-36); Mean Corpuscular Hemoglobin 31.4 PG (26-34); Mean Corpuscular Volume 91.3 fL (80-100); Monocytes Absolute Auto 400 /uL (0-900); Monocytes Percent Auto 3.5 % (3-14); Neutrophils Absolute Auto 8200 /uL (1500-7000); Neutrophils Percent Auto 76.9 % (50-75); Platelet Count 357 X10^3/uL (150-400); Red Blood Cell Count 4.89 X10^6/uL (4.0-5.2); Red Cell Distribution Width 12.3 % (11.6-14.8); White Blood Cell Count 10.6 X10^3/uL (4.5-11.0)
[2024-11-21 11:50] LABS: Alanine Aminotransferase 21 IU/L (<35); Albumin 4.4 g/dL (3.5-5.0); Albumin Globulin Ratio 1.4 (1.0-2.8); Alkaline Phosphatase 55 U/L (38-126); Aspartate Aminotransferase 29 IU/L (14-36); BUN Creatinine Ratio 26.5 (6-22); Bilirubin Total 0.7 mg/dL (0.2-1.3); Blood Urea Nitrogen 18 mg/dL (7-17); Calcium 8.3 mg/dL (8.4-10.2); Carbon Dioxide 25 mmol/L (22-32); Chloride 105 mmol/L (98-107); Estimated Glomerular Filt Rate > 60 mL/min (>60); Globulin 3.1 g/dL (1.7-4.1); Glucose 91 mg/dL (70-100); HEMOLYSIS 35 (0-50); Lipase 62 U/L (23-300); Potassium 4.1 mmol/L (3.4-5.1); Sodium 138 mmol/L (137-145); Total Protein 7.5 g/dL (6.3-8.2)
[2024-11-21 13:35] LABS: Ictotest Urine Negative (Negative)
[2024-11-21 14:23] VITALS: BP 145/94; PULSE 82; O2SAT 96
[2024-11-21 14:25] VITALS: BP 145/94; PULSE 82; RESP 15; O2SAT 98
[2024-11-21 16:07] VITALS: PULSE 89; O2SAT 97
--- NOTE | 2024-11-21 16:09 | ED_ITS ---
HPI - General Adult General Chief complaint: Abdominal Pain Stated complaint: Stomach pain not getting any better Time Seen by Provider: 11/21/24 13:17 Mode of arrival: Ambulatory History of Present Illness HPI narrative: 54-year-old woman with a history hypertension, chronic pain intermittent episodes of partial bowel obstruction presents with continued abdominal pain. She was seen for same on November [address] scan of the abdomen that did not show acute pathology. She has since used Dulcolax but continues to feel generally unwell with increasing pain particularly in the left upper quadrant. No fevers, cough, chills. She is passing gas. No chest pain palpitations or vomiting Related Data Home Medications Medication Instructions Recorded Confirmed multivitamin with minerals (Daily 1 tab PO DAILY 12/07/21 11/11/24 Multivitamin-Minerals tablet) mecobalamin (vitamin B12) 1,000 1,000 mcg PO DAILY 03/14/24 11/11/24 mcg chewable tablet metformin 500 mg tablet,extended 500 mg PO BID 11/11/24 11/11/24 release 24 hr Previous Rx's Medication Instructions Recorded cyclobenzaprine 10 mg tablet 10 mg PO TID PRN muscle spasm #30 01/18/24 tabs celecoxib 100 mg capsule 100 mg PO BID #60 caps 02/05/24 amlodipine 5 mg tablet 5 mg PO DAILY HTN #90 tabs 05/27/24 tramadol 50 mg tablet 50 mg PO TID PRN pain #30 tabs 06/05/24 duloxetine 20 mg capsule,delayed 40 mg (2 x 20 mg) PO DAILY #180 10/07/24 release caps gabapentin 600 mg tablet 1,200 mg (2 x 600 mg) PO TID #180 11/14/24 tabs aluminum-mag hydroxide-simethicone 10 ml PO Q6H PRN dyspepsia #3,000 11/17/24 200 mg-200 mg-20 mg/5 mL oral susp mL (Maalox Advanced) Allergies Allergy/AdvReac Type Severity Reaction Status Date / Time No Known Drug Allergies Allergy Verified 11/21/24 10:47 Review of Systems Review of Systems Narrative: Pertinent positive and negative findings as per HPI Patient History Medical History Menopausal syndrome Facet arthropathy, lumbar Lumbar radiculopathy, chronic History of melanoma Chronic thoracic back pain Mixed hyperlipidemia Sleep apnea (2015) Essential hypertension (~2019) BMI 40.0-44.9, adult Hypertension Surgical History Hx of cholecystectomy (11/04/19) History of bladder surgery Hx of section Family History Mother Liver failure Father Cancer Diabetes mellitus Hypertension Hyperlipidemia Brother Diabetes mellitus Hypertension Grandfather Diabetes mellitus Hypertension Grandmother Diabetes mellitus Hypertension Social History marital status: unknown details: single, one daughter household members: family and children occupational status: employed Smoking Status: Never smoker alcohol intake: current substance use type: does not use Smoking Status: Never smoker alcohol intake frequency: holidays/special occasions only Exam Initial Vital Signs Initial Vital Signs: Vital Signs Temperature 96.9 F L 11/21/24 10:47 Pulse Rate 86 11/21/24 10:47 Respiratory Rate 15 11/21/24 10:47 Blood Pressure 184/90 H 11/21/24 10:47 Pulse Oximetry 97 11/21/24 10:47 Oxygen Delivery Method Room Air 11/21/24 10:47 General: Healthy appearing, in no acute distress. Able to give a complete and coherent history. Well-nourished well-developed HEENT: Moist mucous membranes, normal sclera with reactive pupils, Respiratory: Lungs are clear to auscultation, no wheezing no rales no rhonchi. Full and symmetrical air movement Cardiac: Regular rate and rhythm no murmurs no bruits Abdomen: Soft, mild diffuse tenderness with out rebound or guarding, no flank pain Skin: Warm and dry, no rashes Neurologic: Grossly neurologically intact with no obvious asymmetries or abnormalities Extremities: No trauma, well perfused Psych: Cooperative, appropriate insight and affect Course Orders Ordered: ED Orders 11/21/24 10:49 EKG-12 Lead Stat 11/21/24 11:28 Complete Blood Count AUTO DIFF Stat Comprehensive Metabolic Panel Stat Lipase Stat 11/21/24 13:23 Ictotest Urine Stat 11/21/24 16:14 XR abdomen 1V Stat Ondansetron HCl (Ondansetron 4 Mg/2 Ml Inj) 4 mg IV NOW PRN PRN Reason: Nausea And Vomiting Ondansetron HCl (Ondansetron 4 Mg Odt) 4 mg PO NOW PRN PRN Reason: Nausea And Vomiting Discontinued Medications Oxycodone/Acetaminophen (Oxycodone/Acetaminophen 5/325 Tablet) 1 tab PO NOW ONE Stop: 11/21/24 16:15 Last Admin: 11/21/24 16:31 Dose: 1 tab Documented By: SABINA Vital Signs Vital signs: Vital Signs - 8 hr 11/21/24 10:47 11/21/24 14:23 11/21/24 14:23 Temperature 96.9 F L Pulse Rate 86 82 Respiratory Rate 15 Blood Pressure 184/90 H 145/94 H Pulse Oximetry 97 96 Oxygen Delivery Method Room Air 11/21/24 14:25 Temperature Pulse Rate 82 Respiratory Rate 15 Blood Pressure 145/94 H Pulse Oximetry 98 Oxygen Delivery Method Room Air Medical Decision Making Lab Data 11/21/24 11:28 11/21/24 11:28 Labs: Lab Results 11/21/24 11/21/24 Range/Units 11:28 13:23 WBC 10.6 (4.5-11.0) X10^3/uL RBC 4.89 (4.0-5.2) X10^6/uL Hgb 15.4 (12.0-16.0) g/dL Hct 44.7 (36-46) % MCV 91.3 (80-100) fL MCH 31.4 (26-34) PG MCHC 34.4 (30-36) % RDW 12.3 (11.6-14.8) % Plt Count 357 (150-400) X10^3/uL Neut % (Auto) 76.9 H (50-75) % Lymph % (Auto) 17.3 L (25-40) % Roberts % (Auto) 3.5 (3-14) % Eos % (Auto) 1.9 L (2-4) % Baso % (Auto) 0.4 (0-2) % Neut # (Auto) 8200 H (7886-2087) /uL Lymph # (Auto) 1800 (0977-9413) /uL Roberts # (Auto) 400 (0-900) /uL Eos # (Auto) 200 (0-450) /uL Baso # (Auto) 0 (0-100) /uL Sodium 138 (137-145) mmol/L Potassium 4.1 (3.4-5.1) mmol/L Chloride 105 (98-107) mmol/L Carbon Dioxide 25 (22-32) mmol/L BUN 18 H (7-17) mg/dL Creatinine 0.68 (0.52-1.04) mg/dL Estimated GFR > 60 (>60) mL/min BUN/Creatinine Ratio 26.5 H (6-22) Glucose 91 (70-100) mg/dL Calcium 8.3 L (8.4-10.2) mg/dL Total Bilirubin 0.7 (0.2-1.3) mg/dL AST 29 (14-36) IU/L ALT 21 (<35) IU/L Alkaline Phosphatase 55 (38-126) U/L Total Protein 7.5 (6.3-8.2) g/dL Albumin 4.4 (3.5-5.0) g/dL Globulin 3.1 (1.7-4.1) g/dL Albumin/Globulin Ratio 1.4 (1.0-2.8) Lipase 62 (23-300) U/L Ur Bilirubin Confirm Negative (Negative) Urine Dip Bedside Urine Glucose Negative Bedside Urine Bilirubin + 1 Bedside Urine Ketone - Negative Urine Specific [place] 1.015 Bedside Urine Occult Blood - Negative Bedside Urine pH 6.0 Bedside Urine Protein - Negative Bedside Urine Urobilinogen - Negative Bedside Urine Nitrite - Negative Bedside Urine Leukocytes - Negative Esterase Point of care testing: Urine Dip Bedside Urine Glucose Negative Bedside Urine Bilirubin + 1 Bedside Urine Ketone - Negative Urine Specific [place] 1.015 Bedside Urine Occult Blood - Negative Bedside Urine pH 6.0 Bedside Urine Protein - Negative Bedside Urine Urobilinogen - Negative Bedside Urine Nitrite - Negative Bedside Urine Leukocytes - Negative Esterase [facility] Narrative Medical decision making narrative: 54-year-old woman with continued abdominal pain after complete workup on the 3rd [address] scan. She has taken a number of doses of Dulcolax and still has not had a bowel movement. Lab work shows a normal CBC and normal chemistries Exam shows mild discomfort but no acute surgical findings With shared decision-making we discussed doing an x-ray rather than repeating a CT scan to see if she did not fact having partial bowel obstruction After the x-ray which shows a large amount of stool in the colon and no bowel obstruction, she had 3 large bowel movements and finds that her pain has essentially resolved. Presumably the Dulcolax has finally kicked in. Findings are all reviewed with the patient she is currently pain-free and will be discharged home Discharge Plan Departure Patient Disposition: Home Clinical Impression: Abdominal pain Qualifiers: Abdominal location: generalized Qualified Code(s): R10.84 - Generalized abdominal pain Constipation Qualifiers: Constipation type: unspecified constipation type Qualified Code(s): K59.00 - Constipation, unspecified Instructions: DI for Abdominal Pain-Adult Activity Restrictions/Additional Instructions: Thank you for coming in today Your blood work was reassuring. Your x-ray does not suggest a bowel obstruction but does suggest quite a bit of stool. It sounds like you have had multiple large bowel movements in the emergency department and your pain is significantly improved. Thank you for fixing your own problem! I would recommend continuing the twice a day MiraLax gummies to prevent future problems. If you do find that you are having increased abdominal pain or feel like your stool output is decreased it is not unreasonable to add a dose of MiraLax in the powdered form added to a large glass of water mid day to encourage regular bowel movements. If you find that you are getting worse or develop any new symptoms, please feel free to return to the emergency department for further evaluation. Prescriptions: No Action cyclobenzaprine 10 mg tablet 10 mg PO TID PRN (Reason: muscle spasm) Qty: 30 1RF Hold Instructions: Home Medication placed on hold at Doctor's office celecoxib 100 mg capsule 100 mg PO BID Qty: 60 5RF Hold Instructions: Home Medication placed on hold at Doctor's office amlodipine 5 mg tablet 5 mg PO DAILY Qty: 90 3RF duloxetine 20 mg capsule,delayed release(DR/EC) 40 mg PO DAILY Qty: 180 3RF gabapentin 600 mg tablet 1,200 mg PO TID MDD 6 TABS Qty: 180 1RF Rx Instructions: THIS MEDICATION CAN BE SEDATING. USE IT FOR NERVE PAIN Daily Multivitamin-Minerals Tablet 1 tab PO DAILY mecobalamin (vitamin B12) 1,000 mcg tablet,chewable 1,000 mcg PO DAILY alum-mag hydroxide-simeth [Maalox Advanced] 200-200-20 mg/5 mL suspension 10 ml PO Q6H PRN (Reason: dyspepsia) Qty: 3000 0RF metformin 500 mg tablet extended release 24 hr 500 mg PO BID tramadol 50 mg tablet 50 mg PO TID PRN (Reason: pain) Qty: 30 1RF Referrals: Dima Cook MD [Primary Care Provider] - Stand Alone Forms: Patient Portal/API/Survey
--- NOTE | 2024-11-21 16:14 | DI.RAD.S_ITS ---
PROCEDURE: XR ABDOMEN 1V INDICATIONS: abdominal pain TECHNIQUE: One view of the abdomen acquired. COMPARISON: [facility], CR, XR ABDOMEN 1V, 11/05/2023, 7:30. FINDINGS: Surgical changes and devices: Surgical clips in right upper quadrant compatible with prior cholecystectomy. Bowel: Nonobstructive bowel gas pattern. Large amount of fecal burden seen throughout the colon and rectum. Soft tissues: No suspicious abdominal calcifications. Visualized solid organ contours appear normal in size. Bones: No suspicious bony lesions. IMPRESSION: Nonobstructive bowel gas pattern. Large amount of fecal burden seen throughout the colon and rectum. Query history of constipation. Dictated by: Ham Marrufo M.D. on 11/21/2024 at 17:05 Approved by: Ham Marrufo M.D. on 11/21/2024 at 17:06
[2024-11-21] MEDS: OXYCODONE/ACETAMINOPHEN 5/325 TABLET 1 TAB PO (16:31)
[2024-11-21 18:24] VITALS: BP 146/90
== END 2024-11-21 18:24 | disposition home or self-care (01) ==
PROVIDERS: Emergency Provider Emergency Medicine; PCP Internal Medicine
DX: R10.84 Generalized abdominal pain (principal); K59.00 Constipation, unspecified
CPT/HCPCS: 36415; 74018; 80053; 81003; 83690; 85025; 93005; 99283; 99284